=== PATIENT | female | born 1955 | race Caucasian/White ===

== ENCOUNTER 2016-10-06 08:54 | Emergency (ER) | payer MEDICARE, MEDICAID ==
[~2016-10-06 08:54] MED LIST: ACET65TA OR; ASPI81TA83 OR; CALCCHW12 OR; CIPR500T19 OR; COGE1INJ IJ; COGENTIN PO; CORE6.25 OR; COZA50TA18 OR; GLUC1000 OR; GLUC10TA3 OR; GLUC5TAB3 OR; LEVO112T OR; MAALSUS OR; METO10TA2 OR; NICO14DI3 TD; NORV5TAB OR; PERC5TAB8 OR; PRIL40CA OR; SIMV40TA2 OR; SLOWTAB OR; THIO5CAP OR; [UNRECOGNIZED DRUG - OTHER]; januvia
--- NOTE | 2016-10-06 10:24 | EDDOCDS ---
Physician Documentation [facility] Name: Irene Mckinley Age: 61 yrs Sex: Female : 1955 Arrival Date: 10/06/2016 Time: 08:54 Bed I3 / M3 Private MD: Disposition: 10/06/16 10:08 Discharged to Home/Self Care. Impression: Acute sinusitis, Nausea. - Condition is Stable. - Discharge Instructions: Nausea, Adult, Sinusitis, [id number]. - Prescriptions for Reglan 10 mg Oral Tablet - take 1 tablet by ORAL route every 6 hours take 30 minutes before meals and at bedtime; 20 tablet. Tylenol 325 mg Oral Tablet - take 2 tablets by ORAL route every 6 hours as needed; 30 tablet. Zithromax 500 mg Oral Tablet - take 2 tablet by ORAL route one time; 2 tablet. Claritin 10 mg Oral Tablet - take 1 tablet by ORAL route once daily As needed; 30 tablet. Mucinex 600 mg - take 1 tablet by ORAL route 2 times per day; 30 tablet. - Medication Reconciliation, Local Pharmacy Hours form. - Follow up: Livier Palma; When: 1 - 2 days; Reason: Recheck today's complaints, Continuance of care. Follow up: Emergency Department; Reason: Worsening of conditions. - Problem is new. - Symptoms are unchanged. Historical: - Allergies: PENICILLINS; Strawberries; - Home Meds: 1. aspirin 81 mg Oral tab 1 tab once daily 2. carvedilol 6.25 mg oral tab 1 tab 2 times per day 3. levothyroxine 50 mcg Oral tab 1 tab once daily 4. losartan 100 mg oral tab 1 tab once daily 5. mag64 1 tab three times a day 6. ventolin inhaler as needed 7. Vitamin D3 1,000 unit oral tab daily - PMHx: Bipolar disorder; COPD; Diabetes - IDDM: controlled; GERD; Hypertension; Hypothyroidism; - PSHx: Appendectomy; Tubal ligation; - Social history: Smoking status: Patient/guardian denies using No barriers to communication noted, The patient speaks fluent Turkmen. - Family history: Not pertinent. - : The pt / caregiver states he / she is not on anticoagulants. Home medication list is obtained from [employer] import data. - Exposure Risk Screening:: None identified. Vital Signs: 10/06 09:41 BP 129 / 74; Pulse 63; Resp 18; Temp 98.0; Pulse Ox 97% ; Weight 61.69 kg / 136 lbs; jlf Height 5 ft. 6 in. (167.64 cm); Pain 0/10; 09:41 Body Mass Index 21.95 (61.69 kg, 167.64 cm) [facility] Signatures: Alyssa Woods RN RN dls Xochilt Romero, SIXTOC PA-C ef1 MTDD
--- NOTE | 2016-10-06 10:24 | EDDOCDS ---
Nurse's Notes [facility] Name: Irene Mckinley Age: 61 yrs Sex: Female : 1955 Arrival Date: 10/06/2016 Time: 08:54 Bed I3 / M3 Private MD: Diagnosis: Acute sinusitis;Nausea Presentation: 10/06 09:51 Presenting complaint: Patient states: Pt presents with feeling tired and cold for the dls pas few days bones ache not sleeping face hurts thinks she has a cold. No acute neurological deficit is noted. Pre-hospital glucose is not applicable to this patient. Adult Sepsis Screening: The patient does not have new or worsening altered mentation. Patient's respiratory rate is less than 22. Systolic blood pressure is greater than 100. Patient has a qSOFA score of 0- Negative Sepsis Screen. Suicide/Homicide risk assessment- the patient denies having any suicidal and/or homicidal ideations and does not present with any other emotional, behavioral or mental health complaints. 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 Transition of care: patient was not received from another setting of care. 09:51 Acuity: VICTOR MANUEL Level 3 dls 09:51 Method Of Arrival: Walkin/Carried/Asstd dls Triage Assessment: 09:55 The onset of the patients symptoms was more than three hours ago. General: Appears dls uncomfortable, Behavior is flat. Pain: Pain currently is 3 out of 10 on a pain scale. HIV screening NA for this visit Offered previously. Neurological: No deficits noted. Historical: - Allergies: PENICILLINS; Strawberries; - Home Meds: 1. aspirin 81 mg Oral tab 1 tab once daily 2. carvedilol 6.25 mg oral tab 1 tab 2 times per day 3. levothyroxine 50 mcg Oral tab 1 tab once daily 4. losartan 100 mg oral tab 1 tab once daily 5. mag64 1 tab three times a day 6. ventolin inhaler as needed 7. Vitamin D3 1,000 unit oral tab daily - PMHx: Bipolar disorder; COPD; Diabetes - IDDM: controlled; GERD; Hypertension; Hypothyroidism; - PSHx: Appendectomy; Tubal ligation; - Social history: Smoking status: Patient/guardian denies using No barriers to communication noted, The patient speaks fluent Andorran. - Family history: Not pertinent. - : The pt / caregiver states he / she is not on anticoagulants. Home medication list is obtained from [employer] import data. - Exposure Risk Screening:: None identified. Screenin:20 Screening information is obtained from the patient. Primary language is Andorran. Fall dls risk: No risks identified. Assistance ADL's: requires no assistance with activities of daily living. Abuse/DV Screen: The patient / caregiver reports he/she is: not in a situation that causes fear, pain or injury. Nutritional screening: No deficits noted. Advance Directives: Currently, there is no health care proxy. There is no active DNR order. There is no living will. There is no Power of Garment Presser. Advance directive information has not previously been placed in an [facility] medical record. home support is adequate. Assessment: 10:19 General: Appears in no apparent distress, slender, Behavior is cooperative, flat. Pain: dls Pain currently is 3 out of 10 on a pain scale. Neurological: No deficits noted. 10:20 Awake, alert, oriented. Skin warm and dry. Moves all extremities. Bilateral breath dls sounds clear. Respirations unlabored. Abdomen soft, non-tender. No apparent distress. The patient / caregiver is instructed regarding the plan of care and ED course. Vital Signs: 09:41 BP 129 / 74; Pulse 63; Resp 18; Temp 98.0; Pulse Ox 97% ; Weight 61.69 kg; Height 5 ft. jlf 6 in. (167.64 cm); Pain 0/10; 09:41 Body Mass Index 21.95 (61.69 kg, 167.64 cm) jlf Vitals: 09:55 Glucose Measurement D-stick deferred by provider. dls ED Course: 08:55 Patient visited by Kristel Harris. jp5 08:55 Patient moved to Waiting jp5 09:13 Patient moved to Triage 2 kmg1 09:22 Patient moved to I3 / M3 dls 09:41 Patient visited by Roseline Malone PCA. jlf 09:53 Triage Initiated dls 09:54 Xochilt Romero PA-C is [facility]. ef1 09:54 Trinity Argueta MD is Attending Physician. ef1 09:56 Patient visited by Xochilt Romero PA-C. ef1 10:08 Livier Palma FNP is Referral Physician. ef1 10:20 Accompanied by Family Member, Patient has correct armband on for positive dls identification. Placed in gown. Bed in low position. Call light in reach. 10:22 No IV's were initiated during this patient's visit. No procedures done that require dls assistance. Order Results: There are currently no results for this order. Outcome: 10:08 Discharge ordered by Provider. ef1 10:20 The following High Risk Discharge criteria are identified: None. Discharged to home dls ambulatory. Condition: stable. Discharge instructions given to patient, Instructed on discharge instructions, follow up and referral plans. medication usage, Demonstrated understanding of instructions, medications, Pt was receptive of discharge instructions/ teaching. Prescriptions given X 4. No special radiology studies were completed. 10:22 Discharge Assessment: Patient awake, alert and oriented x 3. No cognitive and/or dls functional deficits noted. Patient verbalized understanding of disposition instructions. patient administered narcotics - no. The following High Risk Discharge criteria are identified: None. Discharged to home ambulatory, with significant other. Property :Personal belongings accompany Pt. 10:23 Patient left the ED. dls Signatures: Zoila Oconnor, RN RN km Alyssa Woods RN RN Xochilt Bullock, PA-C PA-C ef1 Roseline Malone, TEST DEVELOPER TEST DEVELOPER abelf Kristel Harris jp5 MTDLindsey
--- NOTE | 2016-10-08 11:24 | EDDOCDS ---
Physician Documentation [facility] Name: Irene Mckinley Age: 61 yrs Sex: Female : 1955 Arrival Date: 10/06/2016 Time: 08:54 Bed I3 / M3 Private MD: Disposition: 10/06/16 10:08 Discharged to Home/Self Care. Impression: Acute sinusitis, Nausea. - Condition is Stable. - Discharge Instructions: Nausea, Adult, Sinusitis, [id number]. - Prescriptions for Reglan 10 mg Oral Tablet - take 1 tablet by ORAL route every 6 hours take 30 minutes before meals and at bedtime; 20 tablet. Tylenol 325 mg Oral Tablet - take 2 tablets by ORAL route every 6 hours as needed; 30 tablet. Zithromax 500 mg Oral Tablet - take 2 tablet by ORAL route one time; 2 tablet. Claritin 10 mg Oral Tablet - take 1 tablet by ORAL route once daily As needed; 30 tablet. Mucinex 600 mg - take 1 tablet by ORAL route 2 times per day; 30 tablet. - Medication Reconciliation, Local Pharmacy Hours form. - Follow up: Livier Palma; When: 1 - 2 days; Reason: Recheck today's complaints, Continuance of care. Follow up: Emergency Department; Reason: Worsening of conditions. - Problem is new. - Symptoms are unchanged. Historical: - Allergies: PENICILLINS; Strawberries; - Home Meds: 1. aspirin 81 mg Oral tab 1 tab once daily 2. carvedilol 6.25 mg oral tab 1 tab 2 times per day 3. levothyroxine 50 mcg Oral tab 1 tab once daily 4. losartan 100 mg oral tab 1 tab once daily 5. mag64 1 tab three times a day 6. ventolin inhaler as needed 7. Vitamin D3 1,000 unit oral tab daily - PMHx: Bipolar disorder; COPD; Diabetes - IDDM: controlled; GERD; Hypertension; Hypothyroidism; - PSHx: Appendectomy; Tubal ligation; - Social history: Smoking status: Patient/guardian denies using No barriers to communication noted, The patient speaks fluent Sami. - Family history: Not pertinent. - : The pt / caregiver states he / she is not on anticoagulants. Home medication list is obtained from [employer] import data. - Exposure Risk Screening:: None identified. Vital Signs: 10/06 09:41 BP 129 / 74; Pulse 63; Resp 18; Temp 98.0; Pulse Ox 97% ; Weight 61.69 kg / 136 lbs; jlf Height 5 ft. 6 in. (167.64 cm); Pain 0/10; 09:41 Body Mass Index 21.95 (61.69 kg, 167.64 cm) jlf MDM: 10:38 Financial registration complete. mm15 10:38 [facility] Payment Agreement was scanned into [employer] and attached to record. mm15 20:15 T-Sheet-- Draft Copy was scanned into [employer] and attached to record. klr Signatures: Alyssa Woods RN RN dls Xochilt Romero PA-C PA-C ef1 Carline George mm15 Remedios Velez klr The chart was reviewed and I authenticate all verbal orders and agree with the evaluation and treatment provided.Attachments: 10:38 [facility] Payment Agreement mm15 20:15 T-Sheet-- Draft Copy klr Chart Complete MTDD
--- NOTE | 2016-10-08 11:24 | EDDOCDS ---
Nurse's Notes [facility] Name: Irene Mckinley Age: 61 yrs Sex: Female : 1955 Arrival Date: 10/06/2016 Time: 08:54 Bed I3 / M3 Private MD: Diagnosis: Acute sinusitis;Nausea Presentation: 10/06 09:51 Presenting complaint: Patient states: Pt presents with feeling tired and cold for the dls pas few days bones ache not sleeping face hurts thinks she has a cold. No acute neurological deficit is noted. Pre-hospital glucose is not applicable to this patient. Adult Sepsis Screening: The patient does not have new or worsening altered mentation. Patient's respiratory rate is less than 22. Systolic blood pressure is greater than 100. Patient has a qSOFA score of 0- Negative Sepsis Screen. Suicide/Homicide risk assessment- the patient denies having any suicidal and/or homicidal ideations and does not present with any other emotional, behavioral or mental health complaints. 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 Transition of care: patient was not received from another setting of care. 09:51 Acuity: VICTOR MANUEL Level 3 dls 09:51 Method Of Arrival: Walkin/Carried/Asstd dls Triage Assessment: 09:55 The onset of the patients symptoms was more than three hours ago. General: Appears dls uncomfortable, Behavior is flat. Pain: Pain currently is 3 out of 10 on a pain scale. HIV screening NA for this visit Offered previously. Neurological: No deficits noted. Historical: - Allergies: PENICILLINS; Strawberries; - Home Meds: 1. aspirin 81 mg Oral tab 1 tab once daily 2. carvedilol 6.25 mg oral tab 1 tab 2 times per day 3. levothyroxine 50 mcg Oral tab 1 tab once daily 4. losartan 100 mg oral tab 1 tab once daily 5. mag64 1 tab three times a day 6. ventolin inhaler as needed 7. Vitamin D3 1,000 unit oral tab daily - PMHx: Bipolar disorder; COPD; Diabetes - IDDM: controlled; GERD; Hypertension; Hypothyroidism; - PSHx: Appendectomy; Tubal ligation; - Social history: Smoking status: Patient/guardian denies using No barriers to communication noted, The patient speaks fluent Moroccan. - Family history: Not pertinent. - : The pt / caregiver states he / she is not on anticoagulants. Home medication list is obtained from [employer] import data. - Exposure Risk Screening:: None identified. Screenin:20 Screening information is obtained from the patient. Primary language is Moroccan. Fall dls risk: No risks identified. Assistance ADL's: requires no assistance with activities of daily living. Abuse/DV Screen: The patient / caregiver reports he/she is: not in a situation that causes fear, pain or injury. Nutritional screening: No deficits noted. Advance Directives: Currently, there is no health care proxy. There is no active DNR order. There is no living will. There is no Power of Requirements Analyst. Advance directive information has not previously been placed in an [facility] medical record. home support is adequate. Assessment: 10:19 General: Appears in no apparent distress, slender, Behavior is cooperative, flat. Pain: dls Pain currently is 3 out of 10 on a pain scale. Neurological: No deficits noted. 10:20 Awake, alert, oriented. Skin warm and dry. Moves all extremities. Bilateral breath dls sounds clear. Respirations unlabored. Abdomen soft, non-tender. No apparent distress. The patient / caregiver is instructed regarding the plan of care and ED course. Vital Signs: 09:41 BP 129 / 74; Pulse 63; Resp 18; Temp 98.0; Pulse Ox 97% ; Weight 61.69 kg; Height 5 ft. jlf 6 in. (167.64 cm); Pain 0/10; 09:41 Body Mass Index 21.95 (61.69 kg, 167.64 cm) jlf Vitals: 09:55 Glucose Measurement D-stick deferred by provider. dls ED Course: 08:55 Patient visited by Kristel Harris. jp5 08:55 Patient moved to Waiting jp5 09:13 Patient moved to Triage 2 kmg1 09:22 Patient moved to I3 / M3 dls 09:41 Patient visited by Roseline Malone PCA. jlf 09:53 Triage Initiated dls 09:54 [facility] ef1 09:54 Trinity Argueta MD is Attending Physician. ef1 09:56 Patient visited by Xochilt Romero PA-C. ef1 10:08 Livier Palma FNP is Referral Physician. ef1 10:20 Accompanied by Family Member, Patient has correct armband on for positive dls identification. Placed in gown. Bed in low position. Call light in reach. 10:22 No IV's were initiated during this patient's visit. No procedures done that require dls assistance. 10:38 [facility] Payment Agreement was scanned into [employer] and attached to record. mm15 20:15 T-Sheet-- Draft Copy was scanned into [employer] and attached to record. klr Order Results: There are currently no results for this order. Outcome: 10:08 Discharge ordered by Provider. ef1 10:20 The following High Risk Discharge criteria are identified: None. Discharged to home dls ambulatory. Condition: stable. Discharge instructions given to patient, Instructed on discharge instructions, follow up and referral plans. medication usage, Demonstrated understanding of instructions, medications, Pt was receptive of discharge instructions/ teaching. Prescriptions given X 4. No special radiology studies were completed. 10:22 Discharge Assessment: Patient awake, alert and oriented x 3. No cognitive and/or dls functional deficits noted. Patient verbalized understanding of disposition instructions. patient administered narcotics - no. The following High Risk Discharge criteria are identified: None. Discharged to home ambulatory, with significant other. Property :Personal belongings accompany Pt. 10:23 Patient left the ED. dls Signatures: Zoila Oconnor, RN RN km Alyssa Woods RN RN dls Xochilt Romero PA-C PA-C ef1 Carline George mm15 Roseline Malone, [employer] TESTING AND REPAIR TECHNICIAN Kristel Mendoza jp5 Remedios Velez Chart Complete MTDD
--- NOTE | 2016-10-08 11:24 | EDDOCDS ---
Physician Documentation [facility] Name: Irene Mckinley Age: 61 yrs Sex: Female : 1955 Arrival Date: 10/06/2016 Time: 08:54 Bed I3 / M3 Private MD: Disposition: 10/06/16 10:08 Discharged to Home/Self Care. Impression: Acute sinusitis, Nausea. - Condition is Stable. - Discharge Instructions: Nausea, Adult, Sinusitis, [id number]. - Prescriptions for Reglan 10 mg Oral Tablet - take 1 tablet by ORAL route every 6 hours take 30 minutes before meals and at bedtime; 20 tablet. Tylenol 325 mg Oral Tablet - take 2 tablets by ORAL route every 6 hours as needed; 30 tablet. Zithromax 500 mg Oral Tablet - take 2 tablet by ORAL route one time; 2 tablet. Claritin 10 mg Oral Tablet - take 1 tablet by ORAL route once daily As needed; 30 tablet. Mucinex 600 mg - take 1 tablet by ORAL route 2 times per day; 30 tablet. - Medication Reconciliation, Local Pharmacy Hours form. - Follow up: Livier Palma; When: 1 - 2 days; Reason: Recheck today's complaints, Continuance of care. Follow up: Emergency Department; Reason: Worsening of conditions. - Problem is new. - Symptoms are unchanged. Historical: - Allergies: PENICILLINS; Strawberries; - Home Meds: 1. aspirin 81 mg Oral tab 1 tab once daily 2. carvedilol 6.25 mg oral tab 1 tab 2 times per day 3. levothyroxine 50 mcg Oral tab 1 tab once daily 4. losartan 100 mg oral tab 1 tab once daily 5. mag64 1 tab three times a day 6. ventolin inhaler as needed 7. Vitamin D3 1,000 unit oral tab daily - PMHx: Bipolar disorder; COPD; Diabetes - IDDM: controlled; GERD; Hypertension; Hypothyroidism; - PSHx: Appendectomy; Tubal ligation; - Social history: Smoking status: Patient/guardian denies using No barriers to communication noted, The patient speaks fluent Frisian. - Family history: Not pertinent. - : The pt / caregiver states he / she is not on anticoagulants. Home medication list is obtained from [employer] import data. - Exposure Risk Screening:: None identified. Vital Signs: 10/06 09:41 BP 129 / 74; Pulse 63; Resp 18; Temp 98.0; Pulse Ox 97% ; Weight 61.69 kg / 136 lbs; jlf Height 5 ft. 6 in. (167.64 cm); Pain 0/10; 09:41 Body Mass Index 21.95 (61.69 kg, 167.64 cm) jlf MDM: 10:38 Financial registration complete. mm15 10:38 [facility] Payment Agreement was scanned into [employer] and attached to record. mm15 20:15 T-Sheet-- Draft Copy was scanned into [employer] and attached to record. klr Signatures: Alyssa Woods RN RN dls Xochilt Romero PA-C PA-C ef1 Carline George mm15 Remedios Velez klr The chart was reviewed and I authenticate all verbal orders and agree with the evaluation and treatment provided.Attachments: 10:38 [facility] Payment Agreement mm15 20:15 T-Sheet-- Draft Copy klr Chart Complete MTDD
== END 2016-10-06 10:23 | disposition home or self-care (01) ==
LOC: M ED 08:54
DX: J01.90 Acute sinusitis, unspecified (principal); R11.0 Nausea; I10 Essential (primary) hypertension; E11.9 Type 2 diabetes mellitus without complications; J44.9 Chronic obstructive pulmonary disease, unspecified; E03.9 Hypothyroidism, unspecified; F31.9 Bipolar disorder, unspecified; K21.9 Gastro-esophageal reflux disease without esophagitis; Z79.899 Other long term (current) drug therapy; Z79.82 Long term (current) use of aspirin; Z88.0 Allergy status to penicillin; Z91.018 Allergy to other foods

== ENCOUNTER → 2016-10-31 | Outpatient (REF) | payer MEDICARE, MEDICAID ==
[2016-10-31 11:56] LABS: MEAN CORPUSCULAR HEMOGLOBIN 30.3 pg (27.0-33.0); MEAN CORPUSCULAR HGB CONC 33.9 g/dl (32.0-36.5); MEAN CORPUSCULAR VOLUME 89.5 fl (80.0-96.0); RED CELL DISTRIBUTION WIDTH 13.5 % (11.5-14.5); WHITE BLOOD COUNT 4.8 K/mm3 (4.0-10.0)
[2016-10-31 12:46] LABS: ALBUMIN 3.9 GM/DL (3.2-5.2); ALBUMIN/GLOBULIN RATIO 1.44 (1.00-1.93); ALKALINE PHOSPHATASE 87 U/L (45-117); ALT/SGPT 21 U/L (12-78); ANION GAP 10 MEQ/L (8-16); AST/SGOT 23 U/L (15-37); BILIRUBIN,TOTAL 1.4 MG/DL (0.2-1.0); BLOOD UREA NITROGEN 12 MG/DL (7-18); CALCIUM LEVEL 9.2 MG/DL (8.8-10.2); CARBON DIOXIDE LEVEL 30 MEQ/L (21-32); CHLORIDE LEVEL 93 MEQ/L (98-107); CHOLESTEROL LEVEL 182 MG/DL (<200); CREATININE FOR GFR 0.64 MG/DL (0.55-1.02); GLOMERULAR FILTRATION RATE > 60.0 (>45); GLUCOSE, FASTING 92 MG/DL (80-110); MAGNESIUM LEVEL 2.1 MG/DL (1.8-2.4); POTASSIUM SERUM 4.3 MEQ/L (3.5-5.1); SODIUM LEVEL 133 MEQ/L (136-145); TOTAL PROTEIN 6.6 GM/DL (6.4-8.2); TRIGLYCERIDES LEVEL 52 MG/DL (<150)
== END ==
LOC: M SFHCPLAZ 11:30
PROVIDERS: ATTEND Nurse Practitioner Family
DX: R79.89 Other specified abnormal findings of blood chemistry (principal); E03.9 Hypothyroidism, unspecified; R53.83 Other fatigue; E11.9 Type 2 diabetes mellitus without complications; R35.0 Frequency of micturition; E83.40 Disorders of magnesium metabolism, unspecified; E78.2 Mixed hyperlipidemia; E55.9 Vitamin D deficiency, unspecified

== ENCOUNTER → 2016-11-12 | Outpatient (CLI) | payer MEDICARE ==
[~2016-11-12] MED LIST changes: +ISOVUE-370 76% 100ML VIAL (Q9967) As Ordered ONE
--- NOTE | 2016-11-12 13:35 | REP ---
CT abdomen and pelvis without and with IV contrast: With oral contrast. Left adrenal adenoma. 6-month followup study. Comparison exam June 05, 2016. Also reviewed are prior studies from March 06, 2014 and January 06, 2012. CT contrast dose: 100 ml of Isovue [address] findings: Alternative Financing Specialist images are noncontributory. Axial CT images at the lung bases show no evidence of pleural effusion or infiltrate. Today's study again demonstrates a somewhat nodular and elongate enlargement of the left adrenal gland. This is felt to be essentially unchanged from the December 27, 2011 prior study. There are low Hounsfield unit density within this lesion, mean Hounsfield unit number today is -9.69 HU. The lesion measures very slightly larger than it did in 2012, 1.6 x 1.5 cm in transverse dimensions. Coronal and sagittal multiplanar reformation images demonstrate that the enlarged adrenal is somewhat elongate 4- 1/2 cm in length but this is not felt to be changed. No right adrenal lesion is seen. The liver and spleen are homogeneous on pre- and postcontrast images. There is a small peripheral cyst in the upper pole of each kidney. There are several smaller cysts in the lower pole of each kidney. The abdominal aorta is tortuous but not aneurysmal. Small and large intestinal bowel loops remain unremarkable. No pancreatic lesion is observed. A vaginal pessary is noted in place in the pelvis. There is left colonic diverticulosis. Impression: 1. Stable benign left adrenal adenoma as described above. 2. Left colonic diverticulosis. No acute abnormality. Signed by Manny Burk MD 11/12/2016 03:21 P
== END ==
LOC: M RAD 11:07
PROVIDERS: ATTEND Nurse Practitioner Family
DX: D35.02 Benign neoplasm of left adrenal gland (principal)
CPT/HCPCS: 74178; Q9967

== ENCOUNTER → 2016-11-28 | Outpatient (CLI) | payer MEDICARE ==
[~2016-11-28] MED LIST changes: -ISOVUE-370 76% 100ML VIAL (Q9967) As Ordered ONE
--- NOTE | 2016-11-28 16:48 | REP ---
Clinical: Lung screening. History smoking. Technique: Axial noncontrast low-dose imaging from the thoracic inlet to the upper abdomen using lung screening technique. Comparison: Chest CT dated 11/22/2011. Findings: The bilateral lung koch are well-aerated and clear. No acute pulmonary parenchymal consolidation, nodule or mass lesion appreciated. Tracheobronchial tree is patent. No pleural effusion or pneumothorax. Mediastinum is grossly unremarkable although atherosclerotic changes to the coronary arteries is noted. Impression: Lung-RADS category I. Normal examination. No nodule. Signed by Liam Duran MD 11/28/2016 04:38 P
== END ==
LOC: M RAD 14:59
PROVIDERS: ATTEND Nurse Practitioner Family
DX: F17.210 Nicotine dependence, cigarettes, uncomplicated (principal)

== ENCOUNTER → 2017-01-07 | Day surgery (SDC) | payer MEDICARE ==
[~2017-01-07] VITALS: Ht 165.1 cm; Wt 60.8 kg
[~2017-01-07] MED LIST changes: +ACETAMINOPHEN 325 MG TAB PO PRN; +ALBU17IN INH; +ALBU83IN INH; +ANUS2.5C2 PR; +ASEN5TA SL; +ASPI1TAB PO; +AcetaZOLAMIDE 500 MG ER CAP PO ONE; +BSS with VANC/TOB/EPI for EYE CASES IR ONE; +CALC600T57 PO; +CARV6.25 PO; +CLAR10CA3 PO; +CYCLOPENTOLATE 2% OPHTH SOLN OD ONE; +D5W/0.2% SODIUM CHLORIDE 250 ML IV ONE; +DOXY-278 PO; +DOXY100C37 PO; +FLON1SPR; +HEALON DUET (HEALON 10MG/ML 0.55ML & HEALON ENDOCOAT 30MG/ML 0.85ML) As Ordered ONE; +IPRA2IN INH; +KETOROLAC 0.5% OPHTH SOLN OD ONE; +LEVO50TA45 PO; +LIDOCAINE 1% SDV 5 ML VIAL As Ordered ONE; +LIDOCAINE 4% INJ 5 ML AMP OU ONE; +LOSA100T36 PO; +MAGN64TASA PO; +MIDAZOLAM INJ 2 MG/2 ML VIAL (J2250) As Ordered ONE; +MIRA3350 PO; +MOXIFLOXACIN IN BSS 0.25MG/0.25ML INTRACAMERAL INJ (OR EYE ONLY)(J2280) As Ordered ONE; +MUCI600T34 PO; +OFLOXACIN 0.3 % (OCUFLOX) OPTH SOL 5ML OD ONE; +OMEP20CA3 PO; +PHENYLEPHRINE 2.5% OPHTH SOL 2ML OD ONE; +POVIDONE-IODINE 5% OPHTH PREP SOL 30ML As Ordered ONE; +PROPARACAINE 0.5% OPHTH SOL 15ML OD PRN; +RANI1TAB6 PO; +TRIAMCINOLONE PRES FR 40 MG/ML 1ML(TRIESENCE)(OR EYE ONLY)(J3300 PER 1MG) As Ordered ONE; +TRIMETHOBENZAMIDE 300 MG CAP PO PRN; +TROPICAMIDE 1% OPHTH SOLN 2 ML OD ONE; +VITA100037 PO; +XOPEAER INH; +fentaNYL 100 MCG/2 ML INJECTION (J3010) As Ordered ONE
[2017-01-07 09:20] VITALS: BP 127/77
== END | disposition home or self-care (01) ==
LOC: M SDC 07:13
PROVIDERS: ATTEND Ophthalmology
DX: H26.9 Unspecified cataract (principal); I10 Essential (primary) hypertension; I50.9 Heart failure, unspecified; E03.9 Hypothyroidism, unspecified; E78.00 Pure hypercholesterolemia, unspecified; E11.9 Type 2 diabetes mellitus without complications; K21.9 Gastro-esophageal reflux disease without esophagitis; M54.9 Dorsalgia, unspecified; F31.9 Bipolar disorder, unspecified; R06.02 Shortness of breath; R32 Unspecified urinary incontinence; Z88.0 Allergy status to penicillin; Z91.018 Allergy to other foods; Z78.0 Asymptomatic menopausal state; Z98.51 Tubal ligation status; Z72.0 Tobacco use; Z79.899 Other long term (current) drug therapy; Z79.82 Long term (current) use of aspirin
CPT/HCPCS: 66984; J2250; J2280; J3010; J3300; V2632

== ENCOUNTER 2017-01-12 06:14 | Emergency (ER) | payer MEDICARE, MEDICAID ==
[~2017-01-12] VITALS: Ht 152.4 cm; Wt 58.1 kg
[~2017-01-12 06:14] MED LIST changes: -ACETAMINOPHEN 325 MG TAB PO PRN; -AcetaZOLAMIDE 500 MG ER CAP PO ONE; -BSS with VANC/TOB/EPI for EYE CASES IR ONE; -CYCLOPENTOLATE 2% OPHTH SOLN OD ONE; -D5W/0.2% SODIUM CHLORIDE 250 ML IV ONE; -DOXY-278 PO; -DOXY100C37 PO; -HEALON DUET (HEALON 10MG/ML 0.55ML & HEALON ENDOCOAT 30MG/ML 0.85ML) As Ordered ONE; -KETOROLAC 0.5% OPHTH SOLN OD ONE; -LIDOCAINE 1% SDV 5 ML VIAL As Ordered ONE; -LIDOCAINE 4% INJ 5 ML AMP OU ONE; -MIDAZOLAM INJ 2 MG/2 ML VIAL (J2250) As Ordered ONE; -MOXIFLOXACIN IN BSS 0.25MG/0.25ML INTRACAMERAL INJ (OR EYE ONLY)(J2280) As Ordered ONE; -MUCI600T34 PO; -OFLOXACIN 0.3 % (OCUFLOX) OPTH SOL 5ML OD ONE; -PHENYLEPHRINE 2.5% OPHTH SOL 2ML OD ONE; -POVIDONE-IODINE 5% OPHTH PREP SOL 30ML As Ordered ONE; -PROPARACAINE 0.5% OPHTH SOL 15ML OD PRN; -TRIAMCINOLONE PRES FR 40 MG/ML 1ML(TRIESENCE)(OR EYE ONLY)(J3300 PER 1MG) As Ordered ONE; -TRIMETHOBENZAMIDE 300 MG CAP PO PRN; -TROPICAMIDE 1% OPHTH SOLN 2 ML OD ONE; -XOPEAER INH; -fentaNYL 100 MCG/2 ML INJECTION (J3010) As Ordered ONE
[2017-01-12] MEDS ORDERED: predniSONE 20 MG TAB As Ordered ONE (07:25)
[2017-01-12] MEDS ORDERED: predniSONE 20 MG TAB PO ONE ×2 (07:30→07:45)
[2017-01-12] MEDS ORDERED: predniSONE 50 MG TAB PO ONE (07:30)
[2017-01-12] MEDS ORDERED: IPRATROPIUM 0.5MG/ALBUTEROL 2.5MG INH SOL UD 3ML (DUONEB)(J7620) NEB ONE (07:30)
[2017-01-12 08:29] VITALS: BP 140/82
[2017-01-12] MEDS ORDERED: DOXY-278 PO (08:31)
[2017-01-12] MEDS ORDERED: MUCI600T34 PO (08:32)
[2017-01-12] MEDS ORDERED: DOXY100C37 PO (08:32)
[2017-01-12] MEDS ORDERED: XOPEAER INH (08:32)
[2017-01-12] MEDS ORDERED: DOXYCYCLINE HYCLATE 100 MG TAB PO ONE (08:45)
--- NOTE | 2017-01-12 10:12 | REP ---
CHEST, TWO VIEWS: HISTORY: Cough. COMPARISON: 09/04/2016 FINDINGS: The superior mediastinal structures are midline. The cardiac silhouette is unremarkable in size, shape and position. The diaphragmatic surfaces of the lungs are regular and the costophrenic angles are clear. The pulmonary koch are clear. The imaged osseous structures are intact. IMPRESSION: There is no acute cardiopulmonary disease. Signed by Barry Ferguson DO 01/12/2017 10:24 A
== END 2017-01-12 08:51 | disposition home or self-care (01) ==
LOC: M ED 07:20
DX: J01.90 Acute sinusitis, unspecified (principal); J20.9 Acute bronchitis, unspecified; I10 Essential (primary) hypertension; E11.9 Type 2 diabetes mellitus without complications; J45.909 Unspecified asthma, uncomplicated; E78.00 Pure hypercholesterolemia, unspecified; E03.9 Hypothyroidism, unspecified; F41.9 Anxiety disorder, unspecified; F33.9 Major depressive disorder, recurrent, unspecified; Z79.899 Other long term (current) drug therapy; Z79.82 Long term (current) use of aspirin; Z88.0 Allergy status to penicillin; Z91.018 Allergy to other foods

== ENCOUNTER → 2017-01-24 | Outpatient (CLI) | payer MEDICARE ==
[~2017-01-24] MED LIST changes: +DOXY-278 PO; +DOXY100C37 PO; +MUCI600T34 PO; +XOPEAER INH
--- NOTE | 2017-01-24 13:56 | REP ---
Transvaginal pelvic sonography: History: Postmenopausal bleeding. Findings: Transabdominal and transvaginal scanning demonstrate retroverted retroflexed uterus with dimensions of 5.4 x 2.4 x 3.3 cm. Endometrial echo is 0.2 cm thick. Visualized bladder kaplan are smooth. No free fluid is seen. Normal ovaries are seen. Right ovary dimensions are 1.8 x 0.8 x 1.0 cm. Left ovary measures 2.0 x 1.1 x 1.6 cm. There is a 1 cm simple cyst visible in the left ovary on transvaginal scanning. Impression: No significant abnormality. Retroverted uterus.
== END ==
LOC: M WHC 11:30
PROVIDERS: ATTEND Nurse Practitioner Family
DX: R10.2 Pelvic and perineal pain (principal); N95.0 Postmenopausal bleeding

== ENCOUNTER → 2017-01-30 | Outpatient (REF) | payer MEDICARE, MEDICAID ==
[2017-01-30 13:53] LABS: EOS % 0.8 % (0.0-3.0); LARGE UNSTAINED CELL # 0.1 K/mm3 (0.0-0.4); LARGE UNSTAINED CELL % 1.8 % (0.0-4.0); LYMPH # 1.3 K/mm3 (1.5-4.5); MEAN CORPUSCULAR HGB CONC 34.6 g/dl (32.0-36.5); MEAN CORPUSCULAR VOLUME 92.4 fl (80.0-96.0); MONO # 0.4 K/mm3 (0.0-0.8); MONO % 7.1 % (0.0-5.0); NEUTROPHILS # 3.4 K/mm3 (1.8-7.7); NEUTROPHILS % 65.2 % (36.0-66.0); PLATELET COUNT, AUTOMATED 217 k/mm3 (150-450); RED CELL DISTRIBUTION WIDTH 12.9 % (11.5-14.5); WHITE BLOOD COUNT 5.2 K/mm3 (4.0-10.0)
[2017-01-30 14:30] LABS: ALBUMIN 3.5 GM/DL (3.2-5.2); ALBUMIN/GLOBULIN RATIO 1.25 (1.00-1.93); ALKALINE PHOSPHATASE 77 U/L (45-117); ALT/SGPT 25 U/L (12-78); ANION GAP 7 MEQ/L (8-16); AST/SGOT 16 U/L (15-37); BLOOD UREA NITROGEN 14 MG/DL (7-18); CALCIUM LEVEL 8.7 MG/DL (8.8-10.2); CARBON DIOXIDE LEVEL 31 MEQ/L (21-32); CHLORIDE LEVEL 92 MEQ/L (98-107); CREATININE FOR GFR 0.63 MG/DL (0.55-1.02); GLOMERULAR FILTRATION RATE > 60.0 (>45); GLUCOSE, FASTING 74 MG/DL (80-110); POTASSIUM SERUM 4.9 MEQ/L (3.5-5.1); SODIUM LEVEL 130 MEQ/L (136-145); TOTAL PROTEIN 6.3 GM/DL (6.4-8.2)
== END ==
LOC: M SFHCPLAZ 11:03
PROVIDERS: ATTEND Nurse Practitioner Family
DX: R53.83 Other fatigue (principal); I10 Essential (primary) hypertension; E03.9 Hypothyroidism, unspecified; E11.9 Type 2 diabetes mellitus without complications; E55.9 Vitamin D deficiency, unspecified
CPT/HCPCS: 36415; 80053; 82306; 83036; 84439; 84443; 85025; G0463

== ENCOUNTER → 2017-02-14 | Outpatient (CLI) | payer MEDICARE ==
--- NOTE | 2017-02-14 12:41 | REPMRS ---
Patient History The patient states she had a clinical breast exam in 02/2017. Patient is postmenopausal. No known family history of cancer. Taking estrogen for 1 year. Digital Woman Screen Mammo: February 14, 2017 - Exam #: [id number] Bilateral CC and MLO view(s) were taken. Technologist: Maria Eugenia Salazar, Technologist Prior study comparison: January 26, 2016, digital woman screen mammo performed at [facility] to [facility]. December 08, 2014, digital woman screen mammo performed at [facility] to [facility]. July 07, 2014, echography breast uni/demi performed at [facility] to [facility]. FINDINGS: There are scattered fibroglandular densities. There has been no change in the appearance of the mammogram from the prior studies. There is a mild amount of scattered fibroglandular density which is fairly symmetric. There is no interval development of dominant mass, architectural distortion, or clustered microcalcification suggestive of malignancy. ASSESSMENT: BI-RADS/ACR category 1 mammogram. Negative. Recommendation Routine screening mammogram in 1 year (for women over age 40). This mammogram was interpreted with the aid of an FDA-approved computer-aided dectection system. Electronically Signed By: Bahman Burk MD 02/14/17 0736
== END ==
LOC: M WHC 10:44
PROVIDERS: ATTEND Nurse Practitioner Family
DX: Z12.31 Encounter for screening mammogram for malignant neoplasm of breast (principal); Z78.0 Asymptomatic menopausal state

== ENCOUNTER → 2017-02-14 | Outpatient (REF) | payer MEDICARE, MEDICAID ==
[~2017-02-14] MED LIST changes: +BIAX500T13 PO; +CLAR5TAB7 PO; +LEVAINH INH; -MUCI600T34 PO; +MUCI600T37 PO; +RANI15TA PO; +REGL10TA6 PO; +ULTR50TA8 PO; -VITA100037 PO; +VITA100067 PO; -XOPEAER INH
== END ==
LOC: M SFHCWAGY 11:18
PROVIDERS: ATTEND Nurse Practitioner Family
DX: Z12.4 Encounter for screening for malignant neoplasm of cervix (principal); R87.622 Low grade squamous intraepithelial lesion on cytologic smear of vagina (LGSIL)
CPT/HCPCS: 82270; 87624; G0123; G0202; G0463

== ENCOUNTER 2017-03-26 10:35 | Emergency (ER) | payer MEDICARE, MEDICAID ==
[~2017-03-26] VITALS: Ht 157.5 cm; Wt 72.5 kg
[~2017-03-26 10:35] MED LIST changes: -BIAX500T13 PO; -CLAR5TAB7 PO; -RANI15TA PO; -REGL10TA6 PO; -ULTR50TA8 PO
--- NOTE | 2017-03-26 11:54 | REP ---
LEFT RIB SERIES: Five views including PA chest. HISTORY: Trauma to the lower anterior ribs. Comparison study January 12, 2017. FINDINGS: PA chest x-ray is unremarkable. There is no evidence of pneumothorax or hydrothorax. Mediastinum is not traumatically widened. The aorta is slightly tortuous. Pleural angles are sharp. No infiltrate is seen. There is a calcified axillary lymph node on the right again noted. Multiple views of the left rib cage show no evidence of rib fracture or incidental bony destructive lesion. IMPRESSION: No active disease. Signed by Manny Burk MD 03/26/2017 02:28 P
[2017-03-26] MEDS ORDERED: ULTR50TA8 PO (12:31)
[2017-03-26 12:37] VITALS: BP 152/78
[2017-06-09] MEDS ORDERED: RANI15TA PO (14:32)
== END 2017-03-26 12:41 | disposition home or self-care (01) ==
LOC: M ED 10:35
DX: S20.212A Contusion of left front wall of thorax, initial encounter (principal); W18.2XXA Fall in (into) shower or empty bathtub, initial encounter; Y92.012 Bathroom of single-family (private) house as the place of occurrence of the external cause; Y93.89 Activity, other specified; Y99.8 Other external cause status; Z79.899 Other long term (current) drug therapy; Z79.82 Long term (current) use of aspirin; Z79.51 Long term (current) use of inhaled steroids; Z88.0 Allergy status to penicillin; Z91.018 Allergy to other foods; Z87.891 Personal history of nicotine dependence

== ENCOUNTER → 2017-04-28 | Outpatient (REF) | payer MEDICARE, MEDICAID, OTHER ==
[~2017-04-28] MED LIST changes: +BIAX500T13 PO; +CLAR5TAB7 PO; +RANI15TA PO; +REGL10TA6 PO; +ULTR50TA8 PO
== END ==
LOC: M LAB REF 15:20
PROVIDERS: ATTEND Nurse Practitioner Family
DX: N89.8 Other specified noninflammatory disorders of vagina (principal)
CPT/HCPCS: 87070; G0463

== ENCOUNTER 2017-05-11 14:09 | Emergency (ER) | payer MEDICARE, MEDICAID ==
[~2017-05-11] VITALS: Ht 160 cm; Wt 62.7 kg
[~2017-05-11 14:09] MED LIST changes: -BIAX500T13 PO; -CLAR5TAB7 PO; -RANI15TA PO; -REGL10TA6 PO
[2017-05-11 14:18] VITALS: BP_DIAS 90
[2017-05-11] MEDS ORDERED: diphenhydrAMINE INJ 50MG/ML VIAL (J1200) IV STA (14:58)
[2017-05-11] MEDS ORDERED: NS 1,000 ML IV ONE (15:00)
[2017-05-11 15:18] LABS: BASO # 0.1 K/mm3 (0.0-0.2); EOS # 0.3 K/mm3 (0.0-0.50); EOS % 3.5 % (0.0-3.0); LARGE UNSTAINED CELL # 0.2 K/mm3 (0.0-0.4); LARGE UNSTAINED CELL % 1.8 % (0.0-4.0); LYMPH # 1.8 K/mm3 (1.5-4.5); MEAN CORPUSCULAR HEMOGLOBIN 31.2 pg (27.0-33.0); MEAN CORPUSCULAR HGB CONC 33.8 g/dl (32.0-36.5); MEAN CORPUSCULAR VOLUME 92.1 fl (80.0-96.0); MONO # 0.5 K/mm3 (0.0-0.8); NEUTROPHILS # 5.4 K/mm3 (1.8-7.7); NEUTROPHILS % 67.6 % (36.0-66.0); PLATELET COUNT, AUTOMATED 232 k/mm3 (150-450); RED CELL DISTRIBUTION WIDTH 12.9 % (11.5-14.5)
[2017-05-11] MEDS ORDERED: METOCLOPRAMIDE INJ 10MG/2ML VIAL (J2765) IV ONE (15:30)
[2017-05-11 15:36] LABS: ANION GAP 4 MEQ/L (8-16); BLOOD UREA NITROGEN 22 MG/DL (7-18); CALCIUM LEVEL 9.5 MG/DL (8.8-10.2); CARBON DIOXIDE LEVEL 34 MEQ/L (21-32); CHLORIDE LEVEL 98 MEQ/L (98-107); CREATININE FOR GFR 0.84 MG/DL (0.55-1.02); GLOMERULAR FILTRATION RATE > 60.0 (>45); GLUCOSE, FASTING 126 MG/DL (80-110); POTASSIUM SERUM 4.8 MEQ/L (3.5-5.1); SODIUM LEVEL 136 MEQ/L (136-145)
--- NOTE | 2017-05-11 15:54 | REP ---
Clinical: Altered mental status. Comparison: 08/09/2011 Findings: The ventricles, sulci, and cisterns are normal in position and appearance. Souza-white differentiation is maintained. No acute intracranial hemorrhage, mass/mass effect, pathology or trauma/injury. No evidence for acute infarction. No extra-axial fluid collection. Calvarium is intact. Paranasal sinuses and mastoid air cells are clear. Impression: Normal noncontrast head CT. No evidence for acute intracranial pathology or trauma/injury. Signed by Liam Duran MD 05/11/2017 03:46 P
[2017-05-11] MEDS ORDERED: REGL10TA6 PO (16:02)
[2017-05-11 16:18] VITALS: BP_SYST 86
[2017-06-09] MEDS ORDERED: RANI15TA PO (14:32)
== END 2017-05-11 16:20 | disposition home or self-care (01) ==
LOC: M ED 14:09
DX: R51 Headache (principal); Z87.891 Personal history of nicotine dependence
CPT/HCPCS: 36415; 70450; 80048; 85025; 94760; 96361; 96374; 96375; 99284; J1200; J2765

== ENCOUNTER 2017-05-20 17:31 | Emergency (ER) | payer MEDICARE, MEDICAID ==
[~2017-05-20] VITALS: Ht 165.1 cm; Wt 67.3 kg
[~2017-05-20 17:31] MED LIST changes: +REGL10TA6 PO
[2017-05-20 17:32] VITALS: BP 172/86
[2017-05-20] MEDS ORDERED: PSEUDOEPHEDRINE 30 MG TAB PO ONE (20:15)
[2017-05-20] MEDS ORDERED: ERYTHROMYCIN 250 MG TABLET PO ONE (20:15)
[2017-05-20] MEDS ORDERED: BIAX500T13 PO (20:25)
[2017-05-20] MEDS ORDERED: CLAR5TAB7 PO (20:25)
[2017-06-09] MEDS ORDERED: RANI15TA PO (14:32)
== END 2017-05-20 20:33 | disposition home or self-care (01) ==
LOC: M ED 17:31
DX: J32.9 Chronic sinusitis, unspecified (principal); J06.9 Acute upper respiratory infection, unspecified; I10 Essential (primary) hypertension; J45.909 Unspecified asthma, uncomplicated; E07.9 Disorder of thyroid, unspecified; Z79.899 Other long term (current) drug therapy; Z79.82 Long term (current) use of aspirin; Z88.0 Allergy status to penicillin; Z91.018 Allergy to other foods; Z87.891 Personal history of nicotine dependence

== ENCOUNTER 2017-06-16 07:59 | Day surgery (SDC) | payer MEDICARE, MEDICAID ==
[~2017-06-16] VITALS: Ht 170.2 cm; Wt 62.6 kg
[~2017-06-16 07:59] MED LIST changes: +ACETAMINOPHEN 325 MG TAB PO PRN; +BIAX500T13 PO; +BSS with VANC/TOB/EPI for EYE CASES IR ONE; +CLAR5TAB7 PO; +CYCLOPENTOLATE 2% OPHTH SOLN 2ML BTL OS ONE; +LIDOCAINE 3.5 % 1ML OPHTH TOPICAL GEL OU ONE; +OFLOXACIN 0.3 % (OCUFLOX) OPTH SOL 5ML OS ONE; +PHENYLEPHRINE 2.5% OPHTH SOL 2ML OS ONE; +PROPARACAINE 0.5% OPHTH SOL 15ML OS PRN; +RANI15TA PO; +TROPICAMIDE 1% OPHTH SOLN 2ML OS ONE
[2017-06-16] MEDS ORDERED: LR 1,000 ML IV ONE (08:15)
[2017-06-16] MEDS ORDERED: TRIAMCINOLONE PRES FR 40 MG/ML 1ML(TRIESENCE)(OR EYE ONLY)(J3300 PER 1MG) As Ordered ONE (09:15)
[2017-06-16] MEDS ORDERED: LIDOCAINE 1% SDV 5 ML VIAL As Ordered ONE (09:15)
[2017-06-16] MEDS ORDERED: HEALON DUET (HEALON 10MG/ML 0.55ML & HEALON ENDOCOAT 30MG/ML 0.85ML) As Ordered ONE (09:15)
[2017-06-16] MEDS ORDERED: POVIDONE-IODINE 5% OPHTH PREP SOL 30ML As Ordered ONE (09:15)
[2017-06-16] MEDS ORDERED: MOXIFLOXACIN IN BSS 0.25MG/0.25ML INTRACAMERAL INJ (OR EYE ONLY)(J2280) As Ordered ONE (09:15)
[2017-06-16] MEDS ORDERED: fentaNYL 100 MCG/2 ML INJECTION (J3010) As Ordered ONE (09:17)
[2017-06-16] MEDS ORDERED: MIDAZOLAM INJ 2 MG/2 ML VIAL (J2250) As Ordered ONE (09:17)
[2017-06-16 10:10] VITALS: BP 153/86
[2017-06-16] MEDS ORDERED: AcetaZOLAMIDE 500 MG ER CAP As Ordered ONE (10:11)
[2017-06-16] MEDS ORDERED: TRIMETHOBENZAMIDE 300 MG CAP PO PRN (10:15)
[2017-06-16] MEDS ORDERED: KETOROLAC 0.5% OPHTH SOLN OS ONE (10:15)
[2017-06-16] MEDS ORDERED: AcetaZOLAMIDE 500 MG ER CAP PO ONE (10:15)
== END 2017-06-16 10:44 | disposition home or self-care (01) ==
LOC: M SDC 07:59
PROVIDERS: ATTEND Ophthalmology
DX: H25.12 Age-related nuclear cataract, left eye (principal); I10 Essential (primary) hypertension; E03.9 Hypothyroidism, unspecified; E78.2 Mixed hyperlipidemia; J44.9 Chronic obstructive pulmonary disease, unspecified; F31.9 Bipolar disorder, unspecified; K62.5 Hemorrhage of anus and rectum; N81.4 Uterovaginal prolapse, unspecified; K21.9 Gastro-esophageal reflux disease without esophagitis; M54.2 Cervicalgia; F41.9 Anxiety disorder, unspecified; R51 Headache; Z88.0 Allergy status to penicillin; Z91.018 Allergy to other foods; Z79.899 Other long term (current) drug therapy; Z79.82 Long term (current) use of aspirin; Z87.891 Personal history of nicotine dependence; Z98.51 Tubal ligation status; Z78.0 Asymptomatic menopausal state
CPT/HCPCS: 66984; J2250; J2280; J3010; J3300; V2632

== ENCOUNTER → 2017-07-30 | Outpatient (REF) | payer MEDICARE, MEDICAID ==
[~2017-07-30] MED LIST changes: -ACETAMINOPHEN 325 MG TAB PO PRN; -BSS with VANC/TOB/EPI for EYE CASES IR ONE; -CYCLOPENTOLATE 2% OPHTH SOLN 2ML BTL OS ONE; -LIDOCAINE 3.5 % 1ML OPHTH TOPICAL GEL OU ONE; -OFLOXACIN 0.3 % (OCUFLOX) OPTH SOL 5ML OS ONE; -PHENYLEPHRINE 2.5% OPHTH SOL 2ML OS ONE; -PROPARACAINE 0.5% OPHTH SOL 15ML OS PRN; -TROPICAMIDE 1% OPHTH SOLN 2ML OS ONE
[2017-07-30 12:16] LABS: ALBUMIN 3.7 GM/DL (3.2-5.2); ALBUMIN/GLOBULIN RATIO 1.28 (1.00-1.93); ALKALINE PHOSPHATASE 62 U/L (45-117); ALT/SGPT 29 U/L (12-78); ANION GAP 6 MEQ/L (8-16); AST/SGOT 21 U/L (7-37); BILIRUBIN,TOTAL 1.2 MG/DL (0.2-1.0); BLOOD UREA NITROGEN 15 MG/DL (7-18); CALCIUM LEVEL 9.3 MG/DL (8.8-10.2); CARBON DIOXIDE LEVEL 33 MEQ/L (21-32); CHLORIDE LEVEL 92 MEQ/L (98-107); CHOLESTEROL LEVEL 205 MG/DL (<200); CREATININE FOR GFR 0.79 MG/DL (0.55-1.02); FREE T4 1.15 NG/DL (0.76-1.46); GLOMERULAR FILTRATION RATE > 60.0 (>45); GLUCOSE, FASTING 106 MG/DL (80-110); POTASSIUM SERUM 4.6 MEQ/L (3.5-5.1); SODIUM LEVEL 131 MEQ/L (136-145); TOTAL PROTEIN 6.6 GM/DL (6.4-8.2); TRIGLYCERIDES LEVEL 63 MG/DL (<150)
== END ==
LOC: M SFHCPLAZ 09:42
PROVIDERS: ATTEND Nurse Practitioner Family
DX: E55.9 Vitamin D deficiency, unspecified (principal); I10 Essential (primary) hypertension; E03.9 Hypothyroidism, unspecified; E11.9 Type 2 diabetes mellitus without complications

== ENCOUNTER 2017-09-01 17:12 | Emergency (ER) | payer MEDICARE, MEDICAID, OTHER ==
[~2017-09-01] VITALS: Ht 167.6 cm; Wt 70.1 kg
[2017-09-01 17:33] VITALS: BP 168/92
[2017-09-01] MEDS ORDERED: ACETAMINOPHEN 325 MG TAB PO ONE (18:00)
[2017-09-01] MEDS ORDERED: CLINDAMYCIN 150 MG CAP PO ONE (18:00)
[2017-09-01] MEDS ORDERED: CLEO300C2 PO (18:04)
== END 2017-09-01 18:12 | disposition home or self-care (01) ==
LOC: M ED 17:12
DX: J01.90 Acute sinusitis, unspecified (principal); J45.909 Unspecified asthma, uncomplicated; E11.9 Type 2 diabetes mellitus without complications; I10 Essential (primary) hypertension; E07.9 Disorder of thyroid, unspecified; F31.9 Bipolar disorder, unspecified; E78.70 Disorder of bile acid and cholesterol metabolism, unspecified; Z79.82 Long term (current) use of aspirin; Z79.899 Other long term (current) drug therapy; Z88.0 Allergy status to penicillin; Z91.018 Allergy to other foods

== ENCOUNTER 2017-10-22 11:05 | Emergency (ER) | payer MEDICARE, MEDICAID, OTHER | END 2017-10-22 12:53 | disposition home or self-care (01) | LOC: M ED 11:05 | DX: S83.92XA Sprain of unspecified site of left knee, initial encounter (principal); W01.0XXA Fall on same level from slipping, tripping and stumbling without subsequent striking against object, initial encounter; Y92.481 Parking lot as the place of occurrence of the external cause; I10 Essential (primary) hypertension; E78.5 Hyperlipidemia, unspecified; M81.0 Age-related osteoporosis without current pathological fracture; Z79.899 Other long term (current) drug therapy; Z79.82 Long term (current) use of aspirin; Z88.0 Allergy status to penicillin; Z91.018 Allergy to other foods | CPT/HCPCS: 73564 ==

== ENCOUNTER → 2017-10-24 | Outpatient (REF) | payer MEDICARE, MEDICAID ==
[2017-10-24 12:35] LABS: ESTIMATED AVERAGE GLUCOSE 120 MG/DL (60-110); HEMOGLOBIN A1c 5.8 %
[2017-10-24 12:38] LABS: ALBUMIN 3.8 GM/DL (3.2-5.2); ALBUMIN/GLOBULIN RATIO 1.27 (1.00-1.93); ALKALINE PHOSPHATASE 67 U/L (45-117); ALT/SGPT 20 U/L (12-78); ANION GAP 6 MEQ/L (8-16); AST/SGOT 16 U/L (7-37); BLOOD UREA NITROGEN 16 MG/DL (7-18); CALCIUM LEVEL 9.2 MG/DL (8.8-10.2); CARBON DIOXIDE LEVEL 32 MEQ/L (21-32); CHLORIDE LEVEL 94 MEQ/L (98-107); CREATININE FOR GFR 0.72 MG/DL (0.55-1.30); GLOMERULAR FILTRATION RATE > 60.0 (>45); GLUCOSE, FASTING 110 MG/DL (70-100); POTASSIUM SERUM 4.7 MEQ/L (3.5-5.1); SODIUM LEVEL 132 MEQ/L (136-145); TOTAL PROTEIN 6.8 GM/DL (6.4-8.2)
== END ==
LOC: M SFHCPLAZ 08:48
DX: E87.1 Hypo-osmolality and hyponatremia (principal); E80.6 Other disorders of bilirubin metabolism; E11.9 Type 2 diabetes mellitus without complications
CPT/HCPCS: 80053

== ENCOUNTER 2017-10-28 12:00 | Emergency (ER) | payer MEDICARE, MEDICAID ==
[2017-10-28 13:56] LABS: INFLUENZA A AMPLIFICATION NEGATIVE (NEGATIVE); INFLUENZA B AMPLIFICATION NEGATIVE (NEGATIVE)
[2017-10-28] MEDS: BACTRIM 160MG/800MG DS TAB PO (14:28)
== END 2017-10-28 14:29 | disposition home or self-care (01) ==
LOC: M ED 12:00
DX: J01.90 Acute sinusitis, unspecified (principal); J20.9 Acute bronchitis, unspecified; J45.909 Unspecified asthma, uncomplicated; I10 Essential (primary) hypertension; E78.00 Pure hypercholesterolemia, unspecified; E03.9 Hypothyroidism, unspecified; K21.9 Gastro-esophageal reflux disease without esophagitis; M81.0 Age-related osteoporosis without current pathological fracture; F20.9 Schizophrenia, unspecified; F33.9 Major depressive disorder, recurrent, unspecified; F41.9 Anxiety disorder, unspecified; Z79.890 Hormone replacement therapy; Z79.899 Other long term (current) drug therapy; Z79.82 Long term (current) use of aspirin; Z88.0 Allergy status to penicillin; Z91.018 Allergy to other foods; Z87.891 Personal history of nicotine dependence; Z98.890 Other specified postprocedural states; Z86.69 Personal history of other diseases of the nervous system and sense organs; Z87.09 Personal history of other diseases of the respiratory system
CPT/HCPCS: 87502

== ENCOUNTER 2018-02-15 15:38 | Emergency (ER) | payer MEDICARE, MEDICAID ==
[2018-02-15] MEDS: CIPROFLOXACIN HC OTIC SUSPENSION AU ×2 (17:00)
== END 2018-02-15 17:00 | disposition home or self-care (01) ==
LOC: M ED 15:38
DX: H60.93 Unspecified otitis externa, bilateral (principal); E11.9 Type 2 diabetes mellitus without complications; I10 Essential (primary) hypertension; E78.00 Pure hypercholesterolemia, unspecified; E03.9 Hypothyroidism, unspecified; J44.9 Chronic obstructive pulmonary disease, unspecified; J45.909 Unspecified asthma, uncomplicated; F31.9 Bipolar disorder, unspecified; F41.9 Anxiety disorder, unspecified; F20.9 Schizophrenia, unspecified; Z87.891 Personal history of nicotine dependence; Z79.899 Other long term (current) drug therapy; Z88.0 Allergy status to penicillin; Z88.8 Allergy status to other drugs, medicaments and biological substances; Z91.018 Allergy to other foods
CPT/HCPCS: 84550; 99282

== ENCOUNTER → 2018-03-13 | Outpatient (CLI) | payer MEDICARE ==
[2018-03-13 19:53] LABS: ANION GAP 6 MEQ/L (8-16); BLOOD UREA NITROGEN 18 MG/DL (7-18); CALCIUM LEVEL 8.8 MG/DL (8.8-10.2); CARBON DIOXIDE LEVEL 32 MEQ/L (21-32); CHLORIDE LEVEL 92 MEQ/L (98-107); GLOMERULAR FILTRATION RATE 59.4 (>45); GLUCOSE, FASTING 85 MG/DL (70-100); POTASSIUM SERUM 4.8 MEQ/L (3.5-5.1); SODIUM LEVEL 130 MEQ/L (136-145)
== END ==
LOC: M SMT 15:45
DX: Z86.39 Personal history of other endocrine, nutritional and metabolic disease (principal)
CPT/HCPCS: 80048

== ENCOUNTER 2018-04-18 16:52 | Emergency (ER) | payer MEDICARE, MEDICAID ==
[2018-04-18] MEDS: NS 1,000 ML IV (18:21)
[2018-04-18 18:29] LABS: BASO # 0.1 10^3/uL (0.0-0.2); BASO % 0.8 % (0.0-1.0); EOS # 0.1 10^3/uL (0.0-0.50); EOS % 0.9 % (0.0-3.0); HEMATOCRIT 40.1 % (36.0-47.0); HEMOGLOBIN 13.8 g/dl (12.0-15.5); IMMATURE GRANULOCYTE % 0.6 % (0-3.0); LYMPH % 23.3 % (24.0-44.0); MEAN CORPUSCULAR HEMOGLOBIN 31.2 pg (27.0-33.0); MEAN CORPUSCULAR HGB CONC 34.4 g/dl (32.0-36.5); MEAN CORPUSCULAR VOLUME 90.5 fl (80.0-96.0); MONO # 0.7 10^3/uL (0.0-0.8); MONO % 8.1 % (0.0-5.0); NEUTROPHILS # 5.8 10^3/uL (1.8-7.7); NEUTROPHILS % 66.3 % (36.0-66.0); PLATELET COUNT, AUTOMATED 229 10^3/uL (150-450); RED BLOOD COUNT 4.43 10^6/uL (4.00-5.40); WHITE BLOOD COUNT 8.7 10^3/uL (4.0-10.0)
[2018-04-18 18:42] LABS: D-DIMER QUANT 1074.7 ng/ml (<500)
[2018-04-18 18:50] LABS: ALBUMIN 3.7 GM/DL (3.2-5.2); ALBUMIN/GLOBULIN RATIO 1.09 (1.00-1.93); ALKALINE PHOSPHATASE 83 U/L (45-117); ALT/SGPT 23 U/L (12-78); ANION GAP 7 MEQ/L (8-16); AST/SGOT 26 U/L (7-37); BILIRUBIN,DIRECT 0.2 MG/DL (0.0-0.2); BILIRUBIN,TOTAL 0.8 MG/DL (0.2-1.0); BLOOD UREA NITROGEN 14 MG/DL (7-18); CALCIUM LEVEL 9.3 MG/DL (8.8-10.2); CARBON DIOXIDE LEVEL 28 MEQ/L (21-32); CHLORIDE LEVEL 95 MEQ/L (98-107); CPK CREATINE PHOSPHOKINASE 126 U/L (26-192); CREATININE FOR GFR 0.83 MG/DL (0.55-1.30); GLOMERULAR FILTRATION RATE > 60.0 (>45); GLUCOSE, FASTING 95 MG/DL (70-100); LIPASE 182 U/L (73-393); POTASSIUM SERUM 4.5 MEQ/L (3.5-5.1); SODIUM LEVEL 130 MEQ/L (136-145); TOTAL PROTEIN 7.1 GM/DL (6.4-8.2); TROPONIN I < 0.02 NG/ML (< 0.10)
[2018-04-18 18:51] LABS: CK-MB VALUE MASS 1.5 NG/ML (<3.6); MB/CK RELATIVE INDEX 1.19 (< OR =4)
[2018-04-18] MEDS ORDERED: ISOVUE-370 76% 100ML VIAL (Q9967) As Ordered (18:58)
== END 2018-04-18 20:10 | disposition home or self-care (01) ==
LOC: M ED 16:52
DX: R07.89 Other chest pain (principal); R51 Headache; I10 Essential (primary) hypertension; E11.9 Type 2 diabetes mellitus without complications; K21.9 Gastro-esophageal reflux disease without esophagitis; J45.909 Unspecified asthma, uncomplicated; E03.9 Hypothyroidism, unspecified; M81.0 Age-related osteoporosis without current pathological fracture; F31.9 Bipolar disorder, unspecified; Z87.891 Personal history of nicotine dependence; Z88.0 Allergy status to penicillin; Z88.8 Allergy status to other drugs, medicaments and biological substances; Z91.018 Allergy to other foods; Z79.899 Other long term (current) drug therapy
CPT/HCPCS: Q9967

== ENCOUNTER → 2018-05-14 | Outpatient (CLI) | payer MEDICARE, MEDICAID ==
[2018-05-14 12:46] LABS: ALBUMIN 3.6 GM/DL (3.2-5.2); ALBUMIN/GLOBULIN RATIO 1.06 (1.00-1.93); ALKALINE PHOSPHATASE 75 U/L (45-117); ALT/SGPT 24 U/L (12-78); ANION GAP 7 MEQ/L (8-16); AST/SGOT 19 U/L (7-37); BLOOD UREA NITROGEN 13 MG/DL (7-18); CALCIUM LEVEL 9.6 MG/DL (8.8-10.2); CARBON DIOXIDE LEVEL 31 MEQ/L (21-32); CHLORIDE LEVEL 92 MEQ/L (98-107); CHOLESTEROL LEVEL 176 MG/DL (<200); CHOLESTEROL RISK RATIO 2.933 (<5); CREATININE FOR GFR 0.85 MG/DL (0.55-1.30); FREE T4 1.08 NG/DL (0.76-1.46); GLOMERULAR FILTRATION RATE > 60.0 (>45); GLUCOSE, FASTING 95 MG/DL (70-100); HDL CHOLESTEROL 60 MG/DL (>40); LDL CHOLESTEROL 100.4 MG/DL (<100); NON-HDL-C 116 MG/DL; POTASSIUM SERUM 5.1 MEQ/L (3.5-5.1); SODIUM LEVEL 130 MEQ/L (136-145); TRIGLYCERIDES LEVEL 78 MG/DL (<150)
[2018-05-14 15:20] LABS: ESTIMATED AVERAGE GLUCOSE 123 MG/DL (60-110); HEMOGLOBIN A1c 5.9 %
== END ==
LOC: M LAB 11:00
DX: E78.2 Mixed hyperlipidemia (principal); I10 Essential (primary) hypertension; E03.9 Hypothyroidism, unspecified; E11.9 Type 2 diabetes mellitus without complications
CPT/HCPCS: 84443

== ENCOUNTER → 2018-05-27 | Outpatient (REF) | payer OTHER, MEDICAID ==
[2018-05-27 15:47] LABS: AMORPHOUS SEDIMENT SMALL (NEGATIVE); APPEARANCE, URINE CLOUDY (CLEAR); BACTERIA, URINE AUTO 1+ (NEGATIVE); BILIRUBIN, URINE AUTO NEGATIVE (NEGATIVE); BLOOD, URINE BLOOD NEGATIVE (NEGATIVE); COLOR, URINE YELLOW (YELLOW); GLUCOSE, URINE (UA) AUTO NEGATIVE (NEGATIVE); KETONE, URINE AUTO NEGATIVE (NEGATIVE); LEUKOCYTE ESTERASE, URINE AUTO 3+ (NEGATIVE); NITRITE, URINE AUTO NEGATIVE (NEGATIVE); PROTEIN, URINE AUTO NEGATIVE (NEGATIVE); RBC, URINE AUTO 3 /HPF (0-3); SPECIFIC GRAVITY URINE AUTO 1.012 (1.002-1.035); SQUAMOUS EPITHELIAL CELL UR AU 2 /HPF (0-6); UROBILINOGEN, URINE AUTO 0.2 mg/dL (0.0-2.0); WBC, URINE AUTO 26 /HPF (0-3)
== END ==
LOC: M SFHCPLAZ 13:54
DX: R35.0 Frequency of micturition (principal)

== ENCOUNTER → 2018-08-24 | Outpatient (CLI) | payer MEDICARE ==
[~2018-08-24] MED LIST changes: +ALDA25TA2; +AUGM875T28; +AUGM875T28 PO; +BACT800T5 PO; -BIAX500T13 PO; +BIAX500T14 PO; +CIPR0.3S AU; +CLEO300C2 PO; +DIFL150T PO; -DOXY-278 PO; +DOXY-350 PO; +FLUTISP; +IBUP-1022 PO; -LOSA100T36 PO; +LOSA100T50 PO; +MYRB25TA PO; +PROAAER10 INH
--- NOTE | 2018-08-24 17:56 | REPMRS ---
Patient History The patient states she had a clinical breast exam in 08/25 Patient is postmenopausal. No known family history of cancer. Took estrogen for 1 year. Digital Woman Screen Mammo: August 24, 2018 - Exam #: [id number] Bilateral CC and MLO view(s) were taken. Technologist: Jayda Win, Technologist Prior study comparison: February 14, 2017, digital woman screen mammo performed at [facility]. January 26, 2016, digital woman screen mammo performed at [facility]. December 08, 2014, digital woman screen mammo performed at [facility]. FINDINGS: The breast tissue is almost entirely fat. There is a stable nodular opacity in the left lateral breast with smooth margins, unchanged. There has been no change in the appearance of the mammogram from the prior studies. There is no interval development of dominant mass, architectural distortion, or clustered microcalcification typical of malignancy. 3-D tomosynthesis shows no additional findings. Assessment: BI-RADS/ACR category 2 mammogram. Benign finding(s). Recommendation Routine screening mammogram of both breasts in 1 year (for women over age 40). This patient's Lifetime Breast Cancer RIsk is estimated at 4.2 %. This mammogram was interpreted with the aid of an FDA-approved computer-aided dectection system. Electronically Signed By: Bahman Burk MD 08/24/18 [id number]
== END ==
LOC: M WHC 14:21
PROVIDERS: ATTEND Nurse Practitioner Family
DX: Z12.31 Encounter for screening mammogram for malignant neoplasm of breast (principal); Z78.0 Asymptomatic menopausal state; Z92.23 Personal history of estrogen therapy; Z12.4 Encounter for screening for malignant neoplasm of cervix; R87.612 Low grade squamous intraepithelial lesion on cytologic smear of cervix (LGSIL); N95.2 Postmenopausal atrophic vaginitis; Z12.12 Encounter for screening for malignant neoplasm of rectum
CPT/HCPCS: 77063; 77067; 82270; 87624; G0123; G0463

== ENCOUNTER → 2018-08-24 | Outpatient (REF) | payer MEDICARE | LOC: M SFHCWAGY 15:30 | DX: Z12.4 Encounter for screening for malignant neoplasm of cervix (principal); R87.612 Low grade squamous intraepithelial lesion on cytologic smear of cervix (LGSIL); N95.2 Postmenopausal atrophic vaginitis | CPT/HCPCS: G0123 ==

== ENCOUNTER → 2018-09-22 | Outpatient (REF) | payer MEDICARE ==
[2018-09-22 19:39] LABS: BASO # 0.1 10^3/uL (0.0-0.2); BASO % 0.7 % (0.0-1.0); EOS # 0.1 10^3/uL (0.0-0.50); EOS % 0.5 % (0.0-3.0); HEMATOCRIT 42.7 % (36.0-47.0); HEMOGLOBIN 14.2 g/dl (12.0-15.5); LYMPH # 2.1 10^3/uL (1.5-4.5); LYMPH % 17.7 % (24.0-44.0); MEAN CORPUSCULAR HEMOGLOBIN 30.9 pg (27.0-33.0); MEAN CORPUSCULAR HGB CONC 33.3 g/dl (32.0-36.5); MEAN CORPUSCULAR VOLUME 92.8 fl (80.0-96.0); MONO # 0.8 10^3/uL (0.0-0.8); MONO % 6.9 % (0.0-5.0); NEUTROPHILS # 8.9 10^3/uL (1.8-7.7); NEUTROPHILS % 73.6 % (36.0-66.0); PLATELET COUNT, AUTOMATED 256 10^3/uL (150-450); WHITE BLOOD COUNT 12.1 10^3/uL (4.0-10.0)
[2018-09-22 19:46] LABS: ALT/SGPT 26 U/L (12-78); BLOOD UREA NITROGEN 20 MG/DL (7-18); CALCIUM LEVEL 9.1 MG/DL (8.8-10.2); CARBON DIOXIDE LEVEL 27 MEQ/L (21-32); CHLORIDE LEVEL 94 MEQ/L (98-107); CHOLESTEROL LEVEL 191 MG/DL (<200); CHOLESTEROL RISK RATIO 2.581 (<5); CREATININE FOR GFR 1.22 MG/DL (0.55-1.30); GLOMERULAR FILTRATION RATE 47.1 (>45); GLUCOSE, FASTING 93 MG/DL (70-100); HDL CHOLESTEROL 74 MG/DL (>40); LDL CHOLESTEROL 83 MG/DL (<100); NON-HDL-C 117 MG/DL; POTASSIUM SERUM 4.1 MEQ/L (3.5-5.1); SODIUM LEVEL 132 MEQ/L (136-145); TOTAL PROTEIN 7.7 GM/DL (6.4-8.2); TRIGLYCERIDES LEVEL 171 MG/DL (<150)
[2018-09-22 19:48] LABS: TOTAL 25(OH) VITAMIN D 27.9 NG/ML (30.0-100.0); VITAMIN B12 LEVEL > 2000 PG/ML
[2018-09-23 17:49] LABS: FOLATE > 24.0 NG/ML
== END ==
LOC: M LAB REF 19:08
PROVIDERS: ATTEND Nurse Practitioner Family
DX: I10 Essential (primary) hypertension (principal); Z13.9 Encounter for screening, unspecified

== ENCOUNTER → 2018-10-12 | Outpatient (REF) | payer MEDICARE | LOC: M SFHCWAGY 14:42 | PROVIDERS: ATTEND Nurse Practitioner Women's Health | DX: D26.0 Other benign neoplasm of cervix uteri (principal) ==

== ENCOUNTER 2018-11-05 13:37 | Emergency (ER) | payer MEDICARE, MEDICAID ==
[~2018-11-05] VITALS: Ht 170.2 cm; Wt 71.4 kg
[2018-11-05] MEDS ORDERED: AMLO5TAB6 PO (13:50)
[2018-11-05] MEDS ORDERED: NITROFURANTOIN (MACROBID) 100 MG CAP PO ONE (16:30)
--- NOTE | 2018-11-05 16:57 | REP ---
Clinical: Urinary retention. Technique: Axial noncontrast images from the lung bases to the pubic symphysis with coronal and sagittal re-formations. Comparison: 11/12/2016. Findings: Liver, spleen, pancreas, gallbladder, bilateral adrenal glands and kidneys are essentially normal/stable. Left adrenal adenoma and rounded renal hypodensities remain stable and consistent with renal cysts. No perinephric stranding or hydroureteronephrosis is appreciated. A Esqueda catheter is identified within partially collapsed bladder. The enteric system demonstrates moderate fecal stasis and presumed constipation without obstruction or acute inflammatory process. Further evaluation the pelvis demonstrates age appropriate uterus / adnexa. No ascites. No free air. No adenopathy. Atherosclerotic changes to the aorta and vasculature noted without aneurysm. Musculoskeletal structures demonstrate age-related changes without focal osseous abnormality. Lung bases are relatively clear. Impression: 1. Urinary tract system demonstrates stable renal cysts and no evidence for hydroureteronephrosis or perinephric stranding. Esqueda catheter in partially collapsed bladder grossly unremarkable. 2. Stable benign left adrenal adenoma. 3. Moderate fecal stasis and possible constipation. Electronically Signed by Liam Duran MD 11/05/2018 04:48 P
[2018-11-05 17:17] LABS: BASO # 0.1 10^3/uL (0.0-0.2); BASO % 0.7 % (0.0-1.0); EOS # 0.1 10^3/uL (0.0-0.50); EOS % 1.2 % (0.0-3.0); HEMATOCRIT 38.9 % (36.0-47.0); HEMOGLOBIN 13.3 g/dl (12.0-15.5); LYMPH # 1.9 10^3/uL (1.5-4.5); LYMPH % 16.5 % (24.0-44.0); MEAN CORPUSCULAR HEMOGLOBIN 31.4 pg (27.0-33.0); MEAN CORPUSCULAR HGB CONC 34.2 g/dl (32.0-36.5); MONO # 0.9 10^3/uL (0.0-0.8); MONO % 7.5 % (0.0-5.0); NEUTROPHILS # 8.7 10^3/uL (1.8-7.7); NEUTROPHILS % 73.4 % (36.0-66.0); PLATELET COUNT, AUTOMATED 254 10^3/uL (150-450); RED BLOOD COUNT 4.23 10^6/uL (4.00-5.40); WHITE BLOOD COUNT 11.8 10^3/uL (4.0-10.0)
[2018-11-05 17:49] LABS: BLOOD UREA NITROGEN 17 MG/DL (7-18); CALCIUM LEVEL 9.4 MG/DL (8.8-10.2); CARBON DIOXIDE LEVEL 30 MEQ/L (21-32); CHLORIDE LEVEL 97 MEQ/L (98-107); CREATININE FOR GFR 0.87 MG/DL (0.55-1.30); GLOMERULAR FILTRATION RATE > 60.0 (>45); GLUCOSE, FASTING 90 MG/DL (70-100); POTASSIUM SERUM 4.1 MEQ/L (3.5-5.1); SODIUM LEVEL 132 MEQ/L (136-145)
[2018-11-05] MEDS ORDERED: CIPR-249 PO (18:43)
[2018-11-05 18:46] VITALS: BP 130/72
== END 2018-11-05 19:15 | disposition home or self-care (01) ==
LOC: M ED 13:37
DX: N30.90 Cystitis, unspecified without hematuria (principal); R33.9 Retention of urine, unspecified; N28.1 Cyst of kidney, acquired; D35.00 Benign neoplasm of unspecified adrenal gland; K59.00 Constipation, unspecified; R10.30 Lower abdominal pain, unspecified; N32.81 Overactive bladder; N81.4 Uterovaginal prolapse, unspecified; Z88.0 Allergy status to penicillin; Z91.018 Allergy to other foods; Z88.8 Allergy status to other drugs, medicaments and biological substances; Z79.899 Other long term (current) drug therapy

== ENCOUNTER 2018-11-07 13:43 | Emergency (ER) | payer MEDICARE, MEDICAID ==
[~2018-11-07] VITALS: Ht 170.2 cm; Wt 71.8 kg
[~2018-11-07 13:43] MED LIST changes: +AMLO5TAB6 PO; +CIPR-249 PO
[2018-11-07 14:26] LABS: BILIRUBIN, URINE MANUAL NEGATIVE (NEGATIVE); GLUCOSE, URINE (UA) MANUAL NEGATIVE (NEGATIVE); KETONE, URINE MANUAL NEGATIVE (NEGATIVE); UROBILINOGEN, URINE MANUAL NORMAL (NORMAL)
[2018-11-07 14:28] LABS: HEMATOCRIT 37.6 % (36.0-47.0); HEMOGLOBIN 12.7 g/dl (12.0-15.5); MEAN CORPUSCULAR HEMOGLOBIN 30.8 pg (27.0-33.0); MEAN CORPUSCULAR HGB CONC 33.8 g/dl (32.0-36.5); PLATELET COUNT, AUTOMATED 281 10^3/uL (150-450); RED BLOOD COUNT 4.13 10^6/uL (4.00-5.40)
[2018-11-07 14:42] LABS: SQUAMOUS EPITHELIAL CELL URINE NONE SEEN /hpf (SMALL AMT)
[2018-11-07 14:43] LABS: RBC, URINE 30-40 /hpf (0-3); TRANSITIONAL EPI CELLS, URINE SMALL AMOUNT /hpf
[2018-11-07 14:44] LABS: BACTERIA, URINE NONE SEEN; HYALINE CAST, URINE NONE SEEN /lpf (0-1)
[2018-11-07 15:20] LABS: BLOOD UREA NITROGEN 19 MG/DL (7-18); CALCIUM LEVEL 8.8 MG/DL (8.8-10.2); CARBON DIOXIDE LEVEL 28 MEQ/L (21-32); CHLORIDE LEVEL 97 MEQ/L (98-107); CREATININE FOR GFR 0.92 MG/DL (0.55-1.30); GLOMERULAR FILTRATION RATE > 60.0 (>45); GLUCOSE, FASTING 117 MG/DL (70-100); POTASSIUM SERUM 4.5 MEQ/L (3.5-5.1); SODIUM LEVEL 132 MEQ/L (136-145)
[2018-11-07 15:30] VITALS: BP 117/71
== END 2018-11-07 15:51 | disposition home or self-care (01) ==
LOC: M ED 13:43
DX: R31.9 Hematuria, unspecified (principal); Z96.0 Presence of urogenital implants; R33.9 Retention of urine, unspecified; E11.9 Type 2 diabetes mellitus without complications; I10 Essential (primary) hypertension; J45.909 Unspecified asthma, uncomplicated; J44.9 Chronic obstructive pulmonary disease, unspecified; Z87.440 Personal history of urinary (tract) infections; E78.5 Hyperlipidemia, unspecified; F31.9 Bipolar disorder, unspecified; M81.0 Age-related osteoporosis without current pathological fracture; R51 Headache; Z88.0 Allergy status to penicillin; Z91.018 Allergy to other foods; Z88.8 Allergy status to other drugs, medicaments and biological substances; Z79.899 Other long term (current) drug therapy; Z79.2 Long term (current) use of antibiotics

== ENCOUNTER → 2019-01-12 | Outpatient (REF) | payer MEDICARE, MEDICAID ==
[~2019-01-12] MED LIST changes: -ASPI1TAB PO; +ASPI81TA26 PO
[2019-01-12 17:55] LABS: BASO # 0.1 10^3/uL (0.0-0.2); EOS # 0.1 10^3/uL (0.0-0.50); EOS % 0.5 % (0.0-3.0); HEMATOCRIT 40.6 % (36.0-47.0); HEMOGLOBIN 13.4 g/dl (12.0-15.5); LYMPH # 1.8 10^3/uL (1.5-4.5); MEAN CORPUSCULAR HEMOGLOBIN 30.2 pg (27.0-33.0); MEAN CORPUSCULAR VOLUME 91.4 fl (80.0-96.0); MONO # 0.8 10^3/uL (0.0-0.8); MONO % 8.6 % (0.0-5.0); NEUTROPHILS # 6.5 10^3/uL (1.8-7.7); NEUTROPHILS % 70.5 % (36.0-66.0); PLATELET COUNT, AUTOMATED 316 10^3/uL (150-450); RED BLOOD COUNT 4.44 10^6/uL (4.00-5.40); WHITE BLOOD COUNT 9.2 10^3/uL (4.0-10.0)
[2019-01-12 18:12] LABS: ALBUMIN 4.4 GM/DL (3.2-5.2); ALT/SGPT 26 U/L (12-78); BILIRUBIN,TOTAL 1.1 MG/DL (0.2-1.0); BLOOD UREA NITROGEN 14 MG/DL (7-18); CALCIUM LEVEL 9.7 MG/DL (8.8-10.2); CARBON DIOXIDE LEVEL 28 MEQ/L (21-32); CHLORIDE LEVEL 93 MEQ/L (98-107); CHOLESTEROL LEVEL 195 MG/DL (<200); CHOLESTEROL RISK RATIO 2.294 (<5); CREATININE FOR GFR 0.82 MG/DL (0.55-1.30); GLOMERULAR FILTRATION RATE > 60.0 (>45); GLUCOSE, FASTING 87 MG/DL (70-100); HDL CHOLESTEROL 85 MG/DL (>40); LDL CHOLESTEROL 96 MG/DL (<100); NON-HDL-C 110 MG/DL; POTASSIUM SERUM 4.8 MEQ/L (3.5-5.1); SODIUM LEVEL 129 MEQ/L (136-145); TOTAL 25(OH) VITAMIN D 42.4 NG/ML (30.0-100.0); TOTAL PROTEIN 7.3 GM/DL (6.4-8.2); TRIGLYCERIDES LEVEL 69 MG/DL (<150)
[2019-01-12 18:26] LABS: APPEARANCE, URINE CLEAR (CLEAR); BACTERIA, URINE AUTO NEGATIVE (NEGATIVE); BILIRUBIN, URINE AUTO NEGATIVE (NEGATIVE); BLOOD, URINE BLOOD NEGATIVE (NEGATIVE); COLOR, URINE YELLOW (YELLOW); GLUCOSE, URINE (UA) AUTO NEGATIVE (NEGATIVE); KETONE, URINE AUTO NEGATIVE (NEGATIVE); LEUKOCYTE ESTERASE, URINE AUTO 3+ (NEGATIVE); NITRITE, URINE AUTO NEGATIVE (NEGATIVE); PROTEIN, URINE AUTO NEGATIVE (NEGATIVE); RBC, URINE AUTO 2 /HPF (0-3); SPECIFIC GRAVITY URINE AUTO 1.008 (1.002-1.035); SQUAMOUS EPITHELIAL CELL UR AU 2 /HPF (0-6); TRANSITIONAL EPITHELIAL AUTO 1 /HPF; UROBILINOGEN, URINE AUTO 0.2 mg/dL (0.0-2.0); WBC, URINE AUTO 5 /HPF (0-3)
[2019-01-12 19:03] LABS: HEMOGLOBIN A1c 5.9 %
== END ==
LOC: M LAB REF 16:25
PROVIDERS: ATTEND Nurse Practitioner Family
DX: N32.81 Overactive bladder (principal); I10 Essential (primary) hypertension; E11.9 Type 2 diabetes mellitus without complications; E03.9 Hypothyroidism, unspecified; E55.9 Vitamin D deficiency, unspecified

== ENCOUNTER → 2019-02-11 | Outpatient (REF) | payer MEDICARE, MEDICAID ==
[2019-02-11 16:06] LABS: ALBUMIN 4.1 GM/DL (3.2-5.2); ALT/SGPT 28 U/L (12-78); BILIRUBIN,TOTAL 0.9 MG/DL (0.2-1.0); BLOOD UREA NITROGEN 13 MG/DL (7-18); CALCIUM LEVEL 10.1 MG/DL (8.8-10.2); CARBON DIOXIDE LEVEL 30 MEQ/L (21-32); CHLORIDE LEVEL 95 MEQ/L (98-107); CREATININE FOR GFR 0.77 MG/DL (0.55-1.30); FREE T4 1.24 NG/DL (0.76-1.46); GLOMERULAR FILTRATION RATE > 60.0 (>45); GLUCOSE, FASTING 105 MG/DL (70-100); POTASSIUM SERUM 4.4 MEQ/L (3.5-5.1); SODIUM LEVEL 133 MEQ/L (136-145); TOTAL PROTEIN 7.3 GM/DL (6.4-8.2)
== END ==
LOC: M SFHCPLAZ 12:06
PROVIDERS: ATTEND Nurse Practitioner Family
DX: I10 Essential (primary) hypertension (principal); E03.9 Hypothyroidism, unspecified
CPT/HCPCS: 36415; 80053; 84439; 84443; G0463

== ENCOUNTER → 2019-04-21 | Outpatient (REF) | payer MEDICARE, MEDICAID ==
[~2019-04-21] MED LIST changes: -OMEP20CA3 PO; +OMEP20CA4 PO
[2019-04-21 13:40] LABS: AMORPHOUS SEDIMENT MODERATE (NEGATIVE); APPEARANCE, URINE HAZY (CLEAR); BACTERIA, URINE AUTO NEGATIVE (NEGATIVE); BILIRUBIN, URINE AUTO NEGATIVE (NEGATIVE); BLOOD, URINE BLOOD NEGATIVE (NEGATIVE); COLOR, URINE YELLOW (YELLOW); GLUCOSE, URINE (UA) AUTO NEGATIVE (NEGATIVE); KETONE, URINE AUTO NEGATIVE (NEGATIVE); LEUKOCYTE ESTERASE, URINE AUTO TRACE (NEGATIVE); MUCUS, URINE SMALL (NEGATIVE); NITRITE, URINE AUTO NEGATIVE (NEGATIVE); PROTEIN, URINE AUTO NEGATIVE (NEGATIVE); RBC, URINE AUTO 2 /HPF (0-3); SPECIFIC GRAVITY URINE AUTO 1.009 (1.002-1.035); SQUAMOUS EPITHELIAL CELL UR AU 0 /HPF (0-6); UROBILINOGEN, URINE AUTO 0.2 mg/dL (0.0-2.0); WBC, URINE AUTO 3 /HPF (0-3)
[2019-04-21 14:52] LABS: BASO # 0.1 10^3/uL (0.0-0.2); BASO % 1.1 % (0.0-1.0); EOS # 0.1 10^3/uL (0.0-0.50); HEMATOCRIT 40.6 % (36.0-47.0); HEMOGLOBIN 13.4 g/dl (12.0-15.5); LYMPH # 2.1 10^3/uL (1.5-4.5); LYMPH % 26.2 % (24.0-44.0); MEAN CORPUSCULAR HEMOGLOBIN 30.5 pg (27.0-33.0); MEAN CORPUSCULAR VOLUME 92.3 fl (80.0-96.0); MONO # 0.6 10^3/uL (0.0-0.8); MONO % 6.9 % (0.0-5.0); NEUTROPHILS # 5.1 10^3/uL (1.8-7.7); PLATELET COUNT, AUTOMATED 300 10^3/uL (150-450)
[2019-04-21 16:19] LABS: ALT/SGPT 27 U/L (12-78); BILIRUBIN,TOTAL 0.9 MG/DL (0.2-1.0); BLOOD UREA NITROGEN 10 MG/DL (7-18); CALCIUM LEVEL 10.1 MG/DL (8.8-10.2); CARBON DIOXIDE LEVEL 28 MEQ/L (21-32); CHLORIDE LEVEL 97 MEQ/L (98-107); CREATININE FOR GFR 0.75 MG/DL (0.55-1.30); FREE T4 1.21 NG/DL (0.76-1.46); GLOMERULAR FILTRATION RATE > 60.0 (>45); GLUCOSE, FASTING 82 MG/DL (70-100); POTASSIUM SERUM 4.1 MEQ/L (3.5-5.1); SODIUM LEVEL 135 MEQ/L (136-145); TOTAL PROTEIN 7.4 GM/DL (6.4-8.2)
== END ==
LOC: M SFHCPLAZ 10:45
PROVIDERS: ATTEND Nurse Practitioner Family
DX: R53.83 Other fatigue (principal); R39.15 Urgency of urination
CPT/HCPCS: 36415; 80053; 81001; 84439; 84443; 85025; 87086; G0463

== ENCOUNTER → 2019-05-17 | Outpatient (CLI) | payer MEDICARE, MEDICAID ==
[~2019-05-17] MED LIST changes: +RANI-356 PO; -RANI1TAB6 PO
--- NOTE | 2019-05-18 07:37 | REP ---
CT chest without contrast: Low-dose screening exam. History: Former smoker. Comparison chest CT studies are from April 18, 2018, February 24, 2018, November 28, 2016, and November 22, 2011. CT findings: Digital preliminary concrete mason radiograph demonstrates periarticular soft tissue ossicles adjacent to the coracoid process of each shoulder, right larger than left. This could be a loose body or periarticular calcification. It is unchanged. The calcification or ossific density on the right and 1.8 cm in diameter. There is no visible pulmonary nodule. No infiltrate or mass lesion is seen. There is mild vascular calcification. No bony destructive lesion is seen. Previously noted cortical cyst is again seen at the upper pole of the left kidney. Impression: Lung RADS category one negative screening chest CT. Repeat screening chest CT study suggested 1 year. Periarticular calcifications versus ossicles both shoulders unchanged. Electronically Signed by Manny Burk MD 05/18/2019 09:07 A
== END ==
LOC: M RAD 13:07
PROVIDERS: ATTEND Nurse Practitioner Family
DX: Z12.2 Encounter for screening for malignant neoplasm of respiratory organs (principal); Z87.891 Personal history of nicotine dependence; N28.1 Cyst of kidney, acquired

== ENCOUNTER → 2019-08-03 | Outpatient (REF) | payer MEDICARE, MEDICAID ==
[2019-08-03 18:39] LABS: AMORPHOUS SEDIMENT SMALL (NEGATIVE); APPEARANCE, URINE CLEAR (CLEAR); BACTERIA, URINE AUTO NEGATIVE (NEGATIVE); BILIRUBIN, URINE AUTO NEGATIVE (NEGATIVE); BLOOD, URINE BLOOD NEGATIVE (NEGATIVE); COLOR, URINE YELLOW (YELLOW); GLUCOSE, URINE (UA) AUTO NEGATIVE (NEGATIVE); KETONE, URINE AUTO NEGATIVE (NEGATIVE); LEUKOCYTE ESTERASE, URINE AUTO 3+ (NEGATIVE); MUCUS, URINE SMALL (NEGATIVE); NITRITE, URINE AUTO NEGATIVE (NEGATIVE); PROTEIN, URINE AUTO NEGATIVE (NEGATIVE); RBC, URINE AUTO 1 /HPF (0-3); SPECIFIC GRAVITY URINE AUTO 1.006 (1.002-1.035); SQUAMOUS EPITHELIAL CELL UR AU 1 /HPF (0-6); TRANSITIONAL EPITHELIAL AUTO <1 /HPF; UROBILINOGEN, URINE AUTO 0.2 mg/dL (0.0-2.0); WBC, URINE AUTO 13 /HPF (0-3)
== END ==
LOC: M LAB REF 16:50
PROVIDERS: ATTEND Physician Assistant Medical
DX: N39.0 Urinary tract infection, site not specified (principal)

== ENCOUNTER → 2019-09-09 | Outpatient (CLI) | payer MEDICARE, MEDICAID ==
[~2019-09-09] MED LIST changes: +OMEP-172 PO; -OMEP20CA4 PO; -RANI-356 PO; +RANI-397 PO
[2019-09-09 15:09] LABS: APPEARANCE, URINE MANUAL CLOUDY (CLEAR); COLOR, URINE MANUAL DK YELLOW (YELLOW)
[2019-09-09 15:10] LABS: PH,URINE MAN 8.5 UNITS (5.0 - 7.0); SPECIFIC GRAVITY,URINE MANUAL 1.023 (1.002-1.035)
[2019-09-09 15:11] LABS: BILIRUBIN, URINE MANUAL OBSCURED (NEGATIVE); BLOOD URINE MANUAL TRACE (NEGATIVE); GLUCOSE, URINE (UA) MANUAL NEGATIVE (NEGATIVE); KETONE, URINE MANUAL NEGATIVE (NEGATIVE); LEUKOCYTE ESTERASE, URINE MAN POSITIVE (NEGATIVE); NITRITE, URINE MANUAL NEGATIVE (NEGATIVE); PROTEIN, URINE MANUAL NEGATIVE (NEGATIVE); UROBILINOGEN, URINE MANUAL NORMAL (NORMAL)
[2019-09-09 15:23] LABS: BASO # 0.1 10^3/uL (0.0-0.2); BASO % 1.3 % (0.0-1.0); EOS # 0.6 10^3/uL (0.0-0.5); EOS % 8.4 % (0.0-3.0); HEMATOCRIT 40.6 % (36.0-47.0); HEMOGLOBIN 13.4 g/dl (12.0-15.5); LYMPH # 1.6 10^3/uL (1.5-5.0); LYMPH % 22.7 % (24.0-44.0); MEAN CORPUSCULAR HEMOGLOBIN 31.3 pg (27.0-33.0); MEAN CORPUSCULAR VOLUME 94.9 fl (80.0-96.0); MONO # 0.8 10^3/uL (0.0-0.8); MONO % 11.4 % (0.0-5.0); NEUTROPHILS # 3.9 10^3/uL (1.5-8.5); NEUTROPHILS % 55.9 % (36.0-66.0); PLATELET COUNT, AUTOMATED 246 10^3/uL (150-450); RED BLOOD COUNT 4.28 10^6/uL (4.00-5.40); WHITE BLOOD COUNT 6.9 10^3/uL (4.0-10.0)
[2019-09-09 15:31] LABS: SQUAMOUS EPITHELIAL CELL URINE SMALL AMOUNT /hpf (SMALL AMT); TRANSITIONAL EPI CELLS, URINE SMALL AMOUNT /hpf
[2019-09-09 15:32] LABS: AMORPHOUS SEDIMENT, URINE MOD AMOUNT (NEGATIVE); BACTERIA, URINE SMALL AMOUNT; HYALINE CAST, URINE NONE SEEN /lpf (0-1); MUCUS, URINE SMALL AMOUNT (NEGATIVE)
[2019-09-09 15:33] LABS: RBC, URINE 0-1 /hpf (0-3)
[2019-09-09 15:56] LABS: ALT/SGPT 30 U/L (12-78); BILIRUBIN,TOTAL 0.8 MG/DL (0.2-1.0); BLOOD UREA NITROGEN 15 MG/DL (7-18); CALCIUM LEVEL 9.7 MG/DL (8.8-10.2); CARBON DIOXIDE LEVEL 30 MEQ/L (21-32); CHLORIDE LEVEL 98 MEQ/L (98-107); CREATININE FOR GFR 0.89 MG/DL (0.55-1.30); FREE T4 0.99 NG/DL (0.76-1.46); GLOMERULAR FILTRATION RATE > 60.0 (>45); GLUCOSE, FASTING 118 MG/DL (70-100); POTASSIUM SERUM 4.3 MEQ/L (3.5-5.1); SODIUM LEVEL 137 MEQ/L (136-145); TOTAL PROTEIN 7.2 GM/DL (6.4-8.2)
== END ==
LOC: M PLALAB 12:48
PROVIDERS: ATTEND Nurse Practitioner Family
DX: R39.15 Urgency of urination (principal); R53.83 Other fatigue

== ENCOUNTER → 2019-10-13 | Outpatient (CLI) | payer MEDICARE, MEDICAID ==
[~2019-10-13] MED LIST changes: -OMEP-172 PO; +OMEP1CAP73 PO
[2019-10-13 14:32] LABS: MALB URINE SIEMENS 22.1 MG/L
[2019-10-13 14:39] LABS: ALBUMIN 4.5 GM/DL (3.2-5.2); ALT/SGPT 30 U/L (12-78); BLOOD UREA NITROGEN 13 MG/DL (7-18); CALCIUM LEVEL 9.8 MG/DL (8.8-10.2); CARBON DIOXIDE LEVEL 31 MEQ/L (21-32); CHLORIDE LEVEL 93 MEQ/L (98-107); CHOLESTEROL LEVEL 236 MG/DL (<200); CREATININE FOR GFR 0.74 MG/DL (0.55-1.30); FREE T4 1.17 NG/DL (0.76-1.46); GLOMERULAR FILTRATION RATE > 60.0 (>45); GLUCOSE, FASTING 88 MG/DL (70-100); HDL CHOLESTEROL 100 MG/DL (>40); LDL CHOLESTEROL 127 MG/DL (<100); MAGNESIUM LEVEL 2.1 MG/DL (1.8-2.4); NON-HDL-C 136 MG/DL; POTASSIUM SERUM 4.4 MEQ/L (3.5-5.1); SODIUM LEVEL 133 MEQ/L (136-145); TOTAL 25(OH) VITAMIN D 53.7 NG/ML (30.0-100.0); TOTAL PROTEIN 7.4 GM/DL (6.4-8.2); TRIGLYCERIDES LEVEL 43 MG/DL (<150)
[2019-10-13 15:26] LABS: HEMOGLOBIN A1c 5.8 %
== END ==
LOC: M PLALAB 10:50
PROVIDERS: ATTEND Nurse Practitioner Family
DX: E03.9 Hypothyroidism, unspecified (principal); I10 Essential (primary) hypertension; E11.9 Type 2 diabetes mellitus without complications; E55.9 Vitamin D deficiency, unspecified; E83.40 Disorders of magnesium metabolism, unspecified; E78.2 Mixed hyperlipidemia; Z79.51 Long term (current) use of inhaled steroids; Z79.899 Other long term (current) drug therapy

== ENCOUNTER → 2019-10-21 | Outpatient (REF) | payer MEDICARE, MEDICAID ==
[2019-10-21 18:43] LABS: INFLUENZA A AMPLIFICATION NEGATIVE (NEGATIVE); INFLUENZA B AMPLIFICATION NEGATIVE (NEGATIVE)
== END ==
LOC: M LAB REF 17:57
PROVIDERS: ATTEND Physician Assistant
DX: J11.1 Influenza due to unidentified influenza virus with other respiratory manifestations (principal)

== ENCOUNTER → 2019-11-23 | Outpatient (REF) | payer MEDICARE, MEDICAID ==
[2019-11-23 18:38] LABS: APPEARANCE, URINE CLEAR (CLEAR); BACTERIA, URINE AUTO 1+ (NEGATIVE); BILIRUBIN, URINE AUTO NEGATIVE (NEGATIVE); BLOOD, URINE BLOOD NEGATIVE (NEGATIVE); COLOR, URINE STRAW (YELLOW); GLUCOSE, URINE (UA) AUTO NEGATIVE (NEGATIVE); KETONE, URINE AUTO NEGATIVE (NEGATIVE); LEUKOCYTE ESTERASE, URINE AUTO 2+ (NEGATIVE); NITRITE, URINE AUTO NEGATIVE (NEGATIVE); PROTEIN, URINE AUTO NEGATIVE (NEGATIVE); RBC, URINE AUTO 1 /HPF (0-3); SPECIFIC GRAVITY URINE AUTO 1.004 (1.002-1.035); SQUAMOUS EPITHELIAL CELL UR AU 1 /HPF (0-6); UROBILINOGEN, URINE AUTO 0.2 mg/dL (0.0-2.0); WBC, URINE AUTO 9 /HPF (0-3)
== END ==
LOC: M LAB REF 17:40
PROVIDERS: ATTEND Physician Assistant Medical
DX: N39.0 Urinary tract infection, site not specified (principal)

== ENCOUNTER → 2019-12-29 | Outpatient (REF) | payer MEDICARE, MEDICAID ==
[2019-12-29 18:04] LABS: APPEARANCE, URINE CLEAR (CLEAR); BACTERIA, URINE AUTO 1+ (NEGATIVE); BILIRUBIN, URINE AUTO NEGATIVE (NEGATIVE); BLOOD, URINE BLOOD NEGATIVE (NEGATIVE); COLOR, URINE STRAW (YELLOW); GLUCOSE, URINE (UA) AUTO NEGATIVE (NEGATIVE); KETONE, URINE AUTO NEGATIVE (NEGATIVE); LEUKOCYTE ESTERASE, URINE AUTO 3+ (NEGATIVE); NITRITE, URINE AUTO NEGATIVE (NEGATIVE); PROTEIN, URINE AUTO NEGATIVE (NEGATIVE); RBC, URINE AUTO 1 /HPF (0-3); SPECIFIC GRAVITY URINE AUTO 1.005 (1.002-1.035); SQUAMOUS EPITHELIAL CELL UR AU 0 /HPF (0-6); UROBILINOGEN, URINE AUTO 0.2 mg/dL (0.0-2.0); WBC, URINE AUTO 9 /HPF (0-3)
== END ==
LOC: M LAB REF 16:26
PROVIDERS: ATTEND Physician Assistant
DX: N39.0 Urinary tract infection, site not specified (principal)

== ENCOUNTER → 2020-01-14 | Outpatient (REF) | payer MEDICARE, MEDICAID ==
[2020-01-14 17:34] LABS: APPEARANCE, URINE CLEAR (CLEAR); BACTERIA, URINE AUTO 1+ (NEGATIVE); BILIRUBIN, URINE AUTO NEGATIVE (NEGATIVE); BLOOD, URINE BLOOD NEGATIVE (NEGATIVE); COLOR, URINE STRAW (YELLOW); GLUCOSE, URINE (UA) AUTO NEGATIVE (NEGATIVE); KETONE, URINE AUTO NEGATIVE (NEGATIVE); LEUKOCYTE ESTERASE, URINE AUTO 3+ (NEGATIVE); NITRITE, URINE AUTO NEGATIVE (NEGATIVE); PROTEIN, URINE AUTO NEGATIVE (NEGATIVE); RBC, URINE AUTO 3 /HPF (0-3); SPECIFIC GRAVITY URINE AUTO 1.005 (1.002-1.035); SQUAMOUS EPITHELIAL CELL UR AU 0 /HPF (0-6); UROBILINOGEN, URINE AUTO 0.2 mg/dL (0.0-2.0); WBC, URINE AUTO 13 /HPF (0-3)
== END ==
LOC: M LAB REF 16:14
PROVIDERS: ATTEND Physician Assistant
DX: N39.0 Urinary tract infection, site not specified (principal)

== ENCOUNTER → 2020-02-04 | Outpatient (CLI) | payer MEDICARE ==
[2020-02-04 17:55] LABS: BASO # 0.1 10^3/uL (0.0-0.2); BASO % 0.8 % (0.0-1.0); EOS # 0.1 10^3/uL (0.0-0.5); EOS % 1.3 % (0.0-3.0); HEMATOCRIT 35.7 % (36.0-47.0); HEMOGLOBIN 11.9 g/dl (12.0-15.5); LYMPH # 2.1 10^3/uL (1.5-5.0); LYMPH % 27.6 % (24.0-44.0); MEAN CORPUSCULAR HEMOGLOBIN 31.6 pg (27.0-33.0); MEAN CORPUSCULAR HGB CONC 33.3 g/dl (32.0-36.5); MEAN CORPUSCULAR VOLUME 94.7 fl (80.0-96.0); MONO # 0.6 10^3/uL (0.0-0.8); MONO % 7.3 % (0.0-5.0); NEUTROPHILS # 4.8 10^3/uL (1.5-8.5); NEUTROPHILS % 62.7 % (36.0-66.0); PLATELET COUNT, AUTOMATED 223 10^3/uL (150-450); RED BLOOD COUNT 3.77 10^6/uL (4.00-5.40); WHITE BLOOD COUNT 7.7 10^3/uL (4.0-10.0)
[2020-02-04 17:58] LABS: ALBUMIN 3.6 GM/DL (3.2-5.2); ALT/SGPT 26 U/L (12-78); BILIRUBIN,DIRECT 0.2 MG/DL (0.0-0.2); BILIRUBIN,TOTAL 1.1 MG/DL (0.2-1.0); BLOOD UREA NITROGEN 10 MG/DL (7-18); CARBON DIOXIDE LEVEL 32 MEQ/L (21-32); CHLORIDE LEVEL 96 MEQ/L (98-107); CHOLESTEROL LEVEL 176 MG/DL (<200); CHOLESTEROL RISK RATIO 2.046 (<5); CREATININE FOR GFR 0.64 MG/DL (0.55-1.30); GLOMERULAR FILTRATION RATE > 60.0 (>45); GLUCOSE, FASTING 95 MG/DL (70-100); HDL CHOLESTEROL 86 MG/DL (>40); LDL CHOLESTEROL 68 MG/DL (<100); NON-HDL-C 90 MG/DL; POTASSIUM SERUM 4.1 MEQ/L (3.5-5.1); PROLACTIN 35.8 NG/ML; SODIUM LEVEL 132 MEQ/L (136-145); TOTAL 25(OH) VITAMIN D 43.4 NG/ML (30.0-100.0); TOTAL PROTEIN 6.4 GM/DL (6.4-8.2); TRIGLYCERIDES LEVEL 109 MG/DL (<150); VITAMIN B12 LEVEL > 2000 PG/ML (247-911)
[2020-02-04 18:31] LABS: HEMOGLOBIN A1c 5.7 %
== END ==
LOC: M PLALAB 14:09
PROVIDERS: ATTEND Nurse Practitioner Psychiatric/Mental Health
DX: Z51.81 Encounter for therapeutic drug level monitoring (principal); Z13.6 Encounter for screening for cardiovascular disorders; Z13.1 Encounter for screening for diabetes mellitus; E55.9 Vitamin D deficiency, unspecified; Z79.899 Other long term (current) drug therapy

== ENCOUNTER → 2020-02-21 | Outpatient (REF) | payer MEDICARE, MEDICAID ==
[~2020-02-21] MED LIST changes: +AMLO1TAB24 PO; -AMLO5TAB6 PO; -CIPR0.3S AU; +CIPR0.3S6 AU; +CLEO150C PO; +PRAV20TA2; +RISP-8
[2020-02-21 18:49] LABS: APPEARANCE, URINE CLEAR (CLEAR); BACTERIA, URINE AUTO 1+ (NEGATIVE); BILIRUBIN, URINE AUTO NEGATIVE (NEGATIVE); BLOOD, URINE BLOOD NEGATIVE (NEGATIVE); COLOR, URINE YELLOW (YELLOW); GLUCOSE, URINE (UA) AUTO NEGATIVE (NEGATIVE); KETONE, URINE AUTO NEGATIVE (NEGATIVE); LEUKOCYTE ESTERASE, URINE AUTO 3+ (NEGATIVE); NITRITE, URINE AUTO NEGATIVE (NEGATIVE); PROTEIN, URINE AUTO NEGATIVE (NEGATIVE); RBC, URINE AUTO 1 /HPF (0-3); SPECIFIC GRAVITY URINE AUTO 1.005 (1.002-1.035); SQUAMOUS EPITHELIAL CELL UR AU 0 /HPF (0-6); TRANSITIONAL EPITHELIAL AUTO 1 /HPF; UROBILINOGEN, URINE AUTO 0.2 mg/dL (0.0-2.0); WBC, URINE AUTO 49 /HPF (0-3)
== END ==
LOC: M LAB REF 18:08
PROVIDERS: ATTEND Nurse Practitioner Family
DX: R30.0 Dysuria (principal); N39.0 Urinary tract infection, site not specified

== ENCOUNTER → 2020-02-29 | Outpatient (REF) | payer MEDICARE, MEDICAID ==
[~2020-02-29] MED LIST changes: -RISP-8; +RISP1TAB3
[2020-02-29 21:25] LABS: APPEARANCE, URINE CLEAR (CLEAR); BACTERIA, URINE AUTO NEGATIVE (NEGATIVE); BILIRUBIN, URINE AUTO NEGATIVE (NEGATIVE); BLOOD, URINE BLOOD NEGATIVE (NEGATIVE); COLOR, URINE STRAW (YELLOW); GLUCOSE, URINE (UA) AUTO NEGATIVE (NEGATIVE); KETONE, URINE AUTO NEGATIVE (NEGATIVE); LEUKOCYTE ESTERASE, URINE AUTO TRACE (NEGATIVE); NITRITE, URINE AUTO NEGATIVE (NEGATIVE); PROTEIN, URINE AUTO NEGATIVE (NEGATIVE); RBC, URINE AUTO 1 /HPF (0-3); SPECIFIC GRAVITY URINE AUTO 1.003 (1.002-1.035); SQUAMOUS EPITHELIAL CELL UR AU 0 /HPF (0-6); UROBILINOGEN, URINE AUTO 0.2 mg/dL (0.0-2.0); WBC, URINE AUTO 1 /HPF (0-3)
== END ==
LOC: M LAB REF 21:12
PROVIDERS: ATTEND Physician Assistant Medical
DX: N39.0 Urinary tract infection, site not specified (principal)

== ENCOUNTER 2020-03-21 12:48 | Emergency (ER) | payer MEDICARE, MEDICAID ==
[~2020-03-21] VITALS: Ht 170.2 cm; Wt 54.9 kg
[~2020-03-21 12:48] MED LIST changes: -CLEO150C PO; -PRAV20TA2; -RISP1TAB3
[2020-03-21] MEDS ORDERED: PRAV20TA2 (13:15)
[2020-03-21] MEDS ORDERED: RISP1TAB3 (13:15)
[2020-03-21 14:17] LABS: BASO # 0.1 10^3/uL (0.0-0.2); EOS % 0.7 % (0.0-3.0); HEMATOCRIT 36.1 % (36.0-47.0); HEMOGLOBIN 12.1 g/dl (12.0-15.5); LYMPH # 1.6 10^3/uL (1.5-5.0); LYMPH % 28.3 % (24.0-44.0); MEAN CORPUSCULAR HEMOGLOBIN 31.5 pg (27.0-33.0); MEAN CORPUSCULAR HGB CONC 33.5 g/dl (32.0-36.5); MONO # 0.5 10^3/uL (0.0-0.8); MONO % 9.4 % (0.0-5.0); NEUTROPHILS # 3.5 10^3/uL (1.5-8.5); NEUTROPHILS % 60.3 % (36.0-66.0); PLATELET COUNT, AUTOMATED 217 10^3/uL (150-450); RED BLOOD COUNT 3.84 10^6/uL (4.00-5.40); WHITE BLOOD COUNT 5.8 10^3/uL (4.0-10.0)
[2020-03-21 14:43] LABS: BLOOD UREA NITROGEN 16 MG/DL (7-18); CALCIUM LEVEL 9.1 MG/DL (8.8-10.2); CARBON DIOXIDE LEVEL 31 MEQ/L (21-32); CHLORIDE LEVEL 97 MEQ/L (98-107); CREATININE FOR GFR 0.77 MG/DL (0.55-1.30); GLOMERULAR FILTRATION RATE > 60.0 (>45); GLUCOSE, FASTING 105 MG/DL (70-100); POTASSIUM SERUM 3.9 MEQ/L (3.5-5.1); SODIUM LEVEL 133 MEQ/L (136-145)
--- NOTE | 2020-03-21 14:54 | REP ---
Left lower extremity Duplex Doppler venous ultrasound: Real time compression and duplex Doppler interrogation of the left lower extremity deep venous system is performed. The left common femoral, superficial femoral and popliteal veins are fully compressible with transducer pressure and demonstrate normal spontaneous and phasic flow, without evidence of deep venous thrombosis. Impression: No evidence of deep venous thrombosis of the left lower extremity femoral popliteal venous system. Electronically Signed by Conrado Souza MD 03/21/2020 02:45 P
[2020-03-21] MEDS ORDERED: CLEO150C PO (16:13)
[2020-03-21 16:25] VITALS: BP 138/63
--- NOTE | 2020-03-21 18:00 | REP ---
LEFT ANKLE, FOUR VIEWS: Four views of the left ankle are performed. There is no acute fracture or dislocation. There is mild inferior calcaneal spurring. Ankle mortise is anatomic. There is mild diffuse soft tissue swelling. IMPRESSION: No acute fracture or dislocation. Electronically Signed by Conrado Souza MD 03/22/2020 04:48 P
--- NOTE | 2020-03-21 22:55 | REP ---
LEFT FOOT, FOUR VIEWS: There is no evidence of an acute fracture, dislocation, or intrinsic bone disease. There is mild inferior calcaneal spurring. IMPRESSION: No fracture or dislocation. Electronically Signed by Conrado Souza MD 03/22/2020 04:49 P
== END 2020-03-21 16:29 | disposition home or self-care (01) ==
LOC: M ED 12:48
DX: S93.402A Sprain of unspecified ligament of left ankle, initial encounter (principal); W22.8XXA Striking against or struck by other objects, initial encounter; Y92.9 Unspecified place or not applicable; Y93.9 Activity, unspecified; Y99.9 Unspecified external cause status; L03.116 Cellulitis of left lower limb; E03.9 Hypothyroidism, unspecified; E78.5 Hyperlipidemia, unspecified; J44.9 Chronic obstructive pulmonary disease, unspecified; Z79.899 Other long term (current) drug therapy; Z87.891 Personal history of nicotine dependence; Z88.0 Allergy status to penicillin; Z88.1 Allergy status to other antibiotic agents; Z91.018 Allergy to other foods

== ENCOUNTER → 2020-03-22 | Outpatient (REF) | payer MEDICARE, MEDICAID ==
[~2020-03-22] MED LIST changes: +CLEO150C PO; +PRAV20TA2; +RISP1TAB3
[2020-03-22 18:39] LABS: APPEARANCE, URINE CLEAR (CLEAR); BACTERIA, URINE AUTO NEGATIVE (NEGATIVE); BILIRUBIN, URINE AUTO NEGATIVE (NEGATIVE); BLOOD, URINE BLOOD NEGATIVE (NEGATIVE); COLOR, URINE YELLOW (YELLOW); GLUCOSE, URINE (UA) AUTO NEGATIVE (NEGATIVE); KETONE, URINE AUTO NEGATIVE (NEGATIVE); LEUKOCYTE ESTERASE, URINE AUTO NEGATIVE (NEGATIVE); NITRITE, URINE AUTO NEGATIVE (NEGATIVE); PROTEIN, URINE AUTO NEGATIVE (NEGATIVE); RBC, URINE AUTO 2 /HPF (0-3); SPECIFIC GRAVITY URINE AUTO 1.011 (1.002-1.035); SQUAMOUS EPITHELIAL CELL UR AU 0 /HPF (0-6); UROBILINOGEN, URINE AUTO 0.2 mg/dL (0.0-2.0); WBC, URINE AUTO 0 /HPF (0-3)
== END ==
LOC: M SMT 16:54
PROVIDERS: ATTEND Nurse Practitioner Family
DX: R35.0 Frequency of micturition (principal)
CPT/HCPCS: 51702; 81001; 87086; G0463

== ENCOUNTER → 2020-05-22 | Outpatient (REF) | payer MEDICARE, MEDICAID | LOC: EEVIPCON 17:28 → M LAB REF 17:28 | PROVIDERS: ATTEND Physician Assistant | DX: N89.8 Other specified noninflammatory disorders of vagina (principal) ==

== ENCOUNTER → 2020-05-22 | Outpatient (REF) | payer MEDICARE, MEDICAID ==
[2020-05-22 19:27] LABS: CREATININE, URINE < 13.0 MG/DL
== END ==
LOC: M LAB REF 17:27
PROVIDERS: ATTEND Physician Assistant
DX: E11.9 Type 2 diabetes mellitus without complications (principal); N89.8 Other specified noninflammatory disorders of vagina

== ENCOUNTER → 2020-07-07 | Outpatient (REF) | payer MEDICARE, MEDICAID ==
[2020-07-07 13:06] LABS: APPEARANCE, URINE CLEAR (CLEAR); BACTERIA, URINE AUTO NEGATIVE (NEGATIVE); BILIRUBIN, URINE AUTO NEGATIVE (NEGATIVE); BLOOD, URINE BLOOD NEGATIVE (NEGATIVE); COLOR, URINE STRAW (YELLOW); GLUCOSE, URINE (UA) AUTO NEGATIVE (NEGATIVE); KETONE, URINE AUTO NEGATIVE (NEGATIVE); LEUKOCYTE ESTERASE, URINE AUTO TRACE (NEGATIVE); MUCUS, URINE SMALL (NEGATIVE); NITRITE, URINE AUTO NEGATIVE (NEGATIVE); PROTEIN, URINE AUTO NEGATIVE (NEGATIVE); RBC, URINE AUTO 2 /HPF (0-3); SPECIFIC GRAVITY URINE AUTO 1.005 (1.002-1.035); SQUAMOUS EPITHELIAL CELL UR AU 0 /HPF (0-6); UROBILINOGEN, URINE AUTO 0.2 mg/dL (0.0-2.0); WBC, URINE AUTO 2 /HPF (0-3)
== END ==
LOC: M LAB REF 11:49
PROVIDERS: ATTEND Physician Assistant
DX: R30.0 Dysuria (principal); N89.8 Other specified noninflammatory disorders of vagina

== ENCOUNTER → 2020-07-21 | Outpatient (REF) | payer MEDICARE, MEDICAID ==
[2020-07-21 16:38] LABS: BASO # 0.1 10^3/uL (0.0-0.2); EOS % 0.1 % (0.0-3.0); HEMATOCRIT 35.5 % (36.0-47.0); HEMOGLOBIN 11.4 g/dl (12.0-15.5); LYMPH # 1.4 10^3/uL (1.5-5.0); LYMPH % 21.1 % (24.0-44.0); MEAN CORPUSCULAR HEMOGLOBIN 30.6 pg (27.0-33.0); MEAN CORPUSCULAR HGB CONC 32.1 g/dl (32.0-36.5); MEAN CORPUSCULAR VOLUME 95.2 fl (80.0-96.0); MONO # 0.5 10^3/uL (0.0-0.8); MONO % 7.6 % (0.0-5.0); NEUTROPHILS # 4.7 10^3/uL (1.5-8.5); NEUTROPHILS % 69.9 % (36.0-66.0); PLATELET COUNT, AUTOMATED 262 10^3/uL (150-450); RED BLOOD COUNT 3.73 10^6/uL (4.00-5.40); WHITE BLOOD COUNT 6.7 10^3/uL (4.0-10.0)
[2020-07-21 17:19] LABS: ALBUMIN 3.9 GM/DL (3.2-5.2); ALT/SGPT 24 U/L (12-78); BILIRUBIN,TOTAL 0.8 MG/DL (0.2-1.0); BLOOD UREA NITROGEN 11 MG/DL (7-18); CALCIUM LEVEL 9.2 MG/DL (8.8-10.2); CARBON DIOXIDE LEVEL 30 MEQ/L (21-32); CHLORIDE LEVEL 94 MEQ/L (98-107); CHOLESTEROL LEVEL 193 MG/DL (<200); CHOLESTEROL RISK RATIO 1.873 (<5); FREE T4 1.12 NG/DL (0.76-1.46); GLOMERULAR FILTRATION RATE > 60.0 (>45); GLUCOSE, FASTING 66 MG/DL (70-100); HDL CHOLESTEROL 103 MG/DL (>40); LDL CHOLESTEROL 78 MG/DL (<100); NON-HDL-C 90 MG/DL; POTASSIUM SERUM 4.1 MEQ/L (3.5-5.1); SODIUM LEVEL 132 MEQ/L (136-145); TOTAL PROTEIN 6.7 GM/DL (6.4-8.2); TRIGLYCERIDES LEVEL 62 MG/DL (<150)
[2020-07-21 17:21] LABS: TOTAL 25(OH) VITAMIN D 48.9 NG/ML (30.0-100.0)
[2020-07-21 17:35] LABS: CREATININE, URINE < 13.0 MG/DL; MALB URINE SIEMENS 62.8 MG/L
== END ==
LOC: M LAB REF 15:58
PROVIDERS: ATTEND Physician Assistant
DX: E11.69 Type 2 diabetes mellitus with other specified complication (principal)

== ENCOUNTER 2022-03-11 10:54 | Emergency (ER) | payer MEDICARE, MEDICAID ==
[~2022-03-11] VITALS: Ht 170.2 cm; Wt 68.2 kg
[~2022-03-11 10:54] MED LIST changes: +ALBU2.5V10 INH; -ALBU83IN INH; -ALDA25TA2; +ALDA25TA2 PO; +DOXY-443 PO; -DOXY100C37 PO; +LOSA100T45 PO; -LOSA100T50 PO; +RISP-8; -RISP1TAB3
[2022-03-11 13:20] LABS: BASO # 0.1 10^3/uL (0.0-0.2); BASO % 0.4 % (0.0-1.0); EOS % 0.1 % (0.0-3.0); HEMATOCRIT 39.1 % (36.0-47.0); HEMOGLOBIN 13.3 g/dl (12.0-15.5); LYMPH # 0.9 10^3/uL (1.5-5.0); LYMPH % 5.2 % (24.0-44.0); MEAN CORPUSCULAR HEMOGLOBIN 29.8 pg (27.0-33.0); MEAN CORPUSCULAR VOLUME 87.7 fl (80.0-96.0); MONO # 0.9 10^3/uL (0.0-0.8); MONO % 5.3 % (2.0-8.0); NEUTROPHILS # 14.5 10^3/uL (1.5-8.5); NEUTROPHILS % 88.6 % (36.0-66.0); PLATELET COUNT, AUTOMATED 351 10^3/uL (150-450); RED BLOOD COUNT 4.46 10^6/uL (4.00-5.40); WHITE BLOOD COUNT 16.4 10^3/uL (4.0-10.0)
[2022-03-11] MEDS ORDERED: ISOVUE-370 76% 100ML VIAL As Ordered ONE (13:23)
[2022-03-11] MEDS ORDERED: NS 1,000 ML IV ONE (13:35)
[2022-03-11 13:51] LABS: ALBUMIN 3.5 GM/DL (3.2-5.2); BILIRUBIN,DIRECT 0.3 MG/DL (0.0-0.2); BILIRUBIN,TOTAL 1.1 MG/DL (0.2-1.0); TOTAL PROTEIN 6.7 GM/DL (6.4-8.2)
[2022-03-11 13:52] LABS: RSV AMPLIFICATION NEGATIVE (NEGATIVE)
[2022-03-11] MEDS ORDERED: FLEET OIL RETENTION ENEMA PR PRN (14:05)
[2022-03-11] MEDS ORDERED: LACTULOSE 20 GM/30 ML SYRUP UD PO ONE (14:05)
[2022-03-11] MEDS ORDERED: DOCUSATE SODIUM 100MG CAPSULE PO ONE (14:30)
[2022-03-11] MEDS ORDERED: D31000CA4 PO (15:28)
[2022-03-11] MEDS ORDERED: K 10100T PO (15:29)
[2022-03-11] MEDS ORDERED: OMEGCAP4 PO (15:29)
[2022-03-11] MEDS ORDERED: A-10CAP2 PO (15:29)
[2022-03-11] MEDS ORDERED: HOME MED LIST COMPLETE! XX SCH (15:30)
[2022-03-11 16:33] VITALS: BP 142/87
[2022-03-11] MEDS ORDERED: MAGNESIUM CITRATE 300 ML BTL PO ONE (16:55)
[2022-03-11] MEDS ORDERED: DULC10SU2 PR (17:24)
[2022-03-11] MEDS ORDERED: MIRA3350 PO (17:24)
[2022-03-11] MEDS ORDERED: COLA100C5 PO (17:24)
== END 2022-03-11 18:05 | disposition home or self-care (01) ==
LOC: EDBD 10:54 → M ED 10:54
DX: K59.00 Constipation, unspecified (principal); E11.9 Type 2 diabetes mellitus without complications; I10 Essential (primary) hypertension; J44.9 Chronic obstructive pulmonary disease, unspecified; J45.909 Unspecified asthma, uncomplicated; E05.90 Thyrotoxicosis, unspecified without thyrotoxic crisis or storm; E78.5 Hyperlipidemia, unspecified; K21.9 Gastro-esophageal reflux disease without esophagitis; Z87.09 Personal history of other diseases of the respiratory system; Z87.448 Personal history of other diseases of urinary system; Z88.0 Allergy status to penicillin; Z88.8 Allergy status to other drugs, medicaments and biological substances; Z91.018 Allergy to other foods; Z79.899 Other long term (current) drug therapy
CPT/HCPCS: 74018; 74177; 80047; 80076; 83605; 83690; 84295; 85025; 87631; 96360; 96361; 99284; Q9967

== ENCOUNTER 2022-08-02 21:37 | Inpatient (IN) | payer MEDICARE, MEDICAID ==
[~2022-08-02] VITALS: Ht 170.2 cm; Wt 49.0 kg
[~2022-08-02 21:37] MED LIST changes: +A-10CAP2 PO; +COLA100C5 PO; +D31000CA4 PO; -DOXY-350 PO; +DOXY-444 PO; +DULC10SU2 PR; +K 10100T PO; +OMEGCAP4 PO
[2022-08-03 00:25] LABS: BASO # 0.1 10^3/uL (0.0-0.2); EOS # 0.2 10^3/uL (0.0-0.5); EOS % 2.3 % (0.0-3.0); HEMATOCRIT 33.4 % (36.0-47.0); HEMOGLOBIN 10.9 g/dl (12.0-15.5); LYMPH # 2.4 10^3/uL (1.5-5.0); LYMPH % 28.1 % (24.0-44.0); MEAN CORPUSCULAR HEMOGLOBIN 29.7 pg (27.0-33.0); MEAN CORPUSCULAR HGB CONC 32.6 g/dl (32.0-36.5); MONO % 11.4 % (2.0-8.0); NEUTROPHILS # 4.8 10^3/uL (1.5-8.5); NEUTROPHILS % 56.4 % (36.0-66.0); PLATELET COUNT, AUTOMATED 312 10^3/uL (150-450); RED BLOOD COUNT 3.67 10^6/uL (4.00-5.40); WHITE BLOOD COUNT 8.4 10^3/uL (4.0-10.0)
[2022-08-03 00:43] LABS: BLOOD UREA NITROGEN 34 MG/DL (9-23); CALCIUM LEVEL 8.8 MG/DL (8.3-10.6); CARBON DIOXIDE LEVEL 31 MMOL/L (20-31); CHLORIDE LEVEL 94 MMOL/L (98-107); CREATININE FOR GFR 0.47 MG/DL (0.55-1.30); GLOMERULAR FILTRATION RATE > 60.0 (>45); GLUCOSE, FASTING 132 MG/DL (74-106); POTASSIUM SERUM 4.3 MMOL/L (3.5-5.1); SODIUM LEVEL 134 MMOL/L (136-145)
[2022-08-03 00:44] LABS: RSV AMPLIFICATION NEGATIVE (NEGATIVE)
[2022-08-03 00:56] LABS: ERYTHROCYTE SEDIMENTATION RATE 17 mm/hr (0-30)
[2022-08-03] MEDS ORDERED: VANCOMYCIN HCL 1,000 MG in IV FLUID PLACE HOLDER 1 EA IV ONE (01:25)
[2022-08-03] MEDS ORDERED: NITROFURANTOIN (MACROBID) 100 MG CAP PO ONE (01:30)
[2022-08-03] MEDS ORDERED: VANCOMYCIN HCL 750 MG, VIAL MATE ADAPTER 1 EACH in D5W 250 ML IV ONE (01:30)
[2022-08-03] MEDS ORDERED: HYDR12.55 PO (01:35)
[2022-08-03] MEDS ORDERED: HOME MED LIST COMPLETE! XX SCH (01:40)
[2022-08-03] MEDS ORDERED: MOM 30ML SUSPENSION UDC PO PRN (02:25)
[2022-08-03] MEDS ORDERED: ACETAMINOPHEN TAB 650MG DOSE (2X325MG) PO PRN (02:25)
[2022-08-03] MEDS ORDERED: VANCOMYCIN HCL 500 MG in D5W MINI-BAG PLUS 100 ML IV ONE (02:30)
[2022-08-03] MEDS: traMADol 50 MG TAB PO PRN ×3 (02:43→21:29)
[2022-08-03 04:03] VITALS: BP 125/77
[2022-08-03] MEDS: ENOXAPARIN 80MG/0.8ML SYRINGE (J1650 PER 10MG) SC SCH ×2 (05:29→06:01)
[2022-08-03 07:01] LABS: HEMATOCRIT 29.3 % (36.0-47.0); HEMOGLOBIN 9.6 g/dl (12.0-15.5); MEAN CORPUSCULAR HEMOGLOBIN 29.4 pg (27.0-33.0); MEAN CORPUSCULAR HGB CONC 32.8 g/dl (32.0-36.5); MEAN CORPUSCULAR VOLUME 89.9 fl (80.0-96.0); PLATELET COUNT, AUTOMATED 279 10^3/uL (150-450); RED BLOOD COUNT 3.26 10^6/uL (4.00-5.40); WHITE BLOOD COUNT 7.3 10^3/uL (4.0-10.0)
[2022-08-03 07:15] LABS: INR 1.03; PROTHROMBIN TIME 13.7 SECONDS (12.5-14.5)
[2022-08-03 07:39] LABS: BLOOD UREA NITROGEN 24 MG/DL (9-23); CALCIUM LEVEL 8.3 MG/DL (8.3-10.6); CARBON DIOXIDE LEVEL 29 MMOL/L (20-31); CHLORIDE LEVEL 95 MMOL/L (98-107); CREATININE FOR GFR 0.41 MG/DL (0.55-1.30); FREE T4 1.14 NG/DL (0.89-1.76); GLOMERULAR FILTRATION RATE > 60.0 (>45); GLUCOSE, FASTING 119 MG/DL (74-106); MAGNESIUM LEVEL 1.3 MG/DL (1.8-2.4); SODIUM LEVEL 132 MMOL/L (136-145); THYROID STIMULATING HORMONE 5.181 uIU/ML (0.55-4.78)
[2022-08-03] MEDS: DOCUSATE SODIUM 100MG CAPSULE PO SCH ×2 (07:48→21:00)
[2022-08-03] MEDS: risperiDONE 1 MG TAB PO SCH ×2 (12:25→21:29)
[2022-08-03] MEDS: QUEtiapine FUMARATE 50MG TAB PO SCH (12:25)
[2022-08-03 14:00] VITALS: BP 121/75
[2022-08-03] MEDS: NYSTATIN 100,000 UNITS/GM TOPICAL PWD 15GM TOP SCH (21:00)
[2022-08-03] MEDS ORDERED: ENOXAPARIN 60MG/0.6ML SYRINGE (J1650 PER 10MG) SC SCH (21:00)
[2022-08-03] MEDS: MAGNESIUM OXIDE 400MG TAB (MAG-OX) PO SCH (21:29)
[2022-08-03] MEDS: QUEtiapine FUMARATE 25 MG TAB PO PRN (21:30)
[2022-08-03 21:57] VITALS: BP 152/85
[2022-08-04 06:42] LABS: BASO # 0.1 10^3/uL (0.0-0.2); BASO % 1.1 % (0.0-1.0); EOS # 0.2 10^3/uL (0.0-0.5); EOS % 2.3 % (0.0-3.0); HEMATOCRIT 35.1 % (36.0-47.0); HEMOGLOBIN 11.2 g/dl (12.0-15.5); LYMPH # 1.9 10^3/uL (1.5-5.0); LYMPH % 26.9 % (24.0-44.0); MEAN CORPUSCULAR HGB CONC 31.9 g/dl (32.0-36.5); MEAN CORPUSCULAR VOLUME 90.9 fl (80.0-96.0); MONO # 0.7 10^3/uL (0.0-0.8); MONO % 9.3 % (2.0-8.0); NEUTROPHILS # 4.3 10^3/uL (1.5-8.5); PLATELET COUNT, AUTOMATED 293 10^3/uL (150-450); RED BLOOD COUNT 3.86 10^6/uL (4.00-5.40); WHITE BLOOD COUNT 7.1 10^3/uL (4.0-10.0)
[2022-08-04] MEDS: risperiDONE 1 MG TAB PO PRN (06:51)
[2022-08-04 07:09] LABS: BLOOD UREA NITROGEN 15 MG/DL (9-23); CALCIUM LEVEL 9.1 MG/DL (8.3-10.6); CARBON DIOXIDE LEVEL 32 MMOL/L (20-31); CHLORIDE LEVEL 96 MMOL/L (98-107); CREATININE FOR GFR 0.44 MG/DL (0.55-1.30); GLOMERULAR FILTRATION RATE > 60.0 (>45); GLUCOSE, FASTING 92 MG/DL (74-106); MAGNESIUM LEVEL 1.6 MG/DL (1.8-2.4); POTASSIUM SERUM 4.3 MMOL/L (3.5-5.1); SODIUM LEVEL 136 MMOL/L (136-145)
[2022-08-04] MEDS: risperiDONE 1 MG TAB PO SCH ×2 (09:00→20:49)
[2022-08-04] MEDS: MAG SULF 1GM/100ML (MAG RUN) 1 GM in IV 1 EA IV SCH ×2 (09:00→10:00)
[2022-08-04] MEDS: DOCUSATE SODIUM 100MG CAPSULE PO SCH ×2 (09:00→20:41)
[2022-08-04] MEDS: NYSTATIN 100,000 UNITS/GM TOPICAL PWD 15GM TOP SCH ×2 (09:00→20:42)
[2022-08-04] MEDS: MAGNESIUM OXIDE 400MG TAB (MAG-OX) PO SCH ×3 (10:47→20:49)
[2022-08-04] MEDS: APIXABAN 5 MG TAB (ELIQUIS) PO SCH ×2 (10:47→20:48)
[2022-08-04] MEDS: QUEtiapine FUMARATE 50MG TAB PO SCH (10:47)
[2022-08-04] MEDS: traMADol 50 MG TAB PO PRN (20:49)
[2022-08-05] MEDS: APIXABAN 5 MG TAB (ELIQUIS) PO SCH ×2 (09:10→19:43)
[2022-08-05] MEDS: DOCUSATE SODIUM 100MG CAPSULE PO SCH ×2 (09:10→19:43)
[2022-08-05] MEDS: MAGNESIUM OXIDE 400MG TAB (MAG-OX) PO SCH ×3 (09:10→19:44)
[2022-08-05] MEDS: NYSTATIN 100,000 UNITS/GM TOPICAL PWD 15GM TOP SCH ×2 (09:11→19:40)
[2022-08-05] MEDS: QUEtiapine FUMARATE 50MG TAB PO SCH (09:11)
[2022-08-05] MEDS: risperiDONE 1 MG TAB PO SCH (09:11)
[2022-08-05] MEDS ORDERED: TRAM50TA2 PO (09:14)
[2022-08-05] MEDS ORDERED: RISP-8 PO ×2 (09:14)
[2022-08-05] MEDS ORDERED: ELIQ5TAB PO (09:14)
[2022-08-05] MEDS ORDERED: QUET1TAB17 PO (09:14)
[2022-08-05] MEDS ORDERED: QUET50TA4 PO (09:14)
[2022-08-05] MEDS ORDERED: ACET1TAB55 PO (09:14)
[2022-08-05] MEDS: traMADol 50 MG TAB PO PRN (09:19)
[2022-08-05 10:18] LABS: BASO # 0.1 10^3/uL (0.0-0.2); EOS # 0.1 10^3/uL (0.0-0.5); EOS % 1.9 % (0.0-3.0); HEMATOCRIT 32.8 % (36.0-47.0); HEMOGLOBIN 10.6 g/dl (12.0-15.5); LYMPH # 1.3 10^3/uL (1.5-5.0); LYMPH % 20.7 % (24.0-44.0); MEAN CORPUSCULAR HGB CONC 32.3 g/dl (32.0-36.5); MEAN CORPUSCULAR VOLUME 89.9 fl (80.0-96.0); MONO # 0.7 10^3/uL (0.0-0.8); MONO % 11.5 % (2.0-8.0); NEUTROPHILS % 64.6 % (36.0-66.0); PLATELET COUNT, AUTOMATED 284 10^3/uL (150-450); RED BLOOD COUNT 3.65 10^6/uL (4.00-5.40); WHITE BLOOD COUNT 6.2 10^3/uL (4.0-10.0)
[2022-08-05 11:06] LABS: CARBON DIOXIDE LEVEL 32 MMOL/L (20-31); CHLORIDE LEVEL 96 MMOL/L (98-107); SODIUM LEVEL 135 MMOL/L (136-145)
[2022-08-05 11:11] LABS: BLOOD UREA NITROGEN 19 MG/DL (9-23)
[2022-08-05 11:12] LABS: CALCIUM LEVEL 8.9 MG/DL (8.3-10.6); GLUCOSE, FASTING 117 MG/DL (74-106)
[2022-08-05 11:13] LABS: MAGNESIUM LEVEL 1.6 MG/DL (1.8-2.4)
[2022-08-05 11:14] LABS: CREATININE FOR GFR 0.42 MG/DL (0.55-1.30); GLOMERULAR FILTRATION RATE > 60.0 (>45)
[2022-08-05] MEDS ORDERED: PILL CUTTER 1 EACH XX PRN (17:15)
[2022-08-05] MEDS: LIDOCAINE 5% (LIDODERM) PATCH TD SCH (19:39)
[2022-08-05] MEDS: QUEtiapine FUMARATE 25 MG TAB PO PRN (19:43)
[2022-08-05] MEDS: DIVALPROEX 500 MG TAB PO SCH (19:43)
[2022-08-05] MEDS: risperiDONE 0.5 MG TAB PO SCH (19:44)
[2022-08-05] MEDS ORDERED: traMADol 50 MG TAB PO PRN (20:25)
[2022-08-05] MEDS ORDERED: GABAPENTIN 300 MG CAP PO SCH (21:00)
[2022-08-06 06:00] VITALS: BP 161/100
[2022-08-06] MEDS: MAGNESIUM OXIDE 400MG TAB (MAG-OX) PO SCH ×3 (08:27→22:09)
[2022-08-06] MEDS: QUEtiapine FUMARATE 50MG TAB PO SCH (08:27)
[2022-08-06] MEDS: APIXABAN 5 MG TAB (ELIQUIS) PO SCH ×2 (08:27→21:00)
[2022-08-06] MEDS: DOCUSATE SODIUM 100MG CAPSULE PO SCH ×2 (08:27→21:00)
[2022-08-06] MEDS: risperiDONE 0.5 MG TAB PO SCH ×2 (08:27→22:10)
[2022-08-06] MEDS: MOM 30ML SUSPENSION UDC PO SCH (08:30)
[2022-08-06] MEDS: NYSTATIN 100,000 UNITS/GM TOPICAL PWD 15GM TOP SCH ×2 (08:37→21:00)
[2022-08-06] MEDS: DIVALPROEX 500 MG TAB PO SCH ×2 (08:37→21:00)
[2022-08-06 09:34] LABS: BASO # 0.1 10^3/uL (0.0-0.2); BASO % 0.9 % (0.0-1.0); EOS # 0.1 10^3/uL (0.0-0.5); EOS % 1.1 % (0.0-3.0); HEMATOCRIT 33.1 % (36.0-47.0); HEMOGLOBIN 10.8 g/dl (12.0-15.5); LYMPH # 1.2 10^3/uL (1.5-5.0); LYMPH % 12.7 % (24.0-44.0); MEAN CORPUSCULAR HEMOGLOBIN 29.6 pg (27.0-33.0); MEAN CORPUSCULAR HGB CONC 32.6 g/dl (32.0-36.5); MEAN CORPUSCULAR VOLUME 90.7 fl (80.0-96.0); MONO # 0.8 10^3/uL (0.0-0.8); MONO % 9.1 % (2.0-8.0); NEUTROPHILS % 75.4 % (36.0-66.0); PLATELET COUNT, AUTOMATED 287 10^3/uL (150-450); RED BLOOD COUNT 3.65 10^6/uL (4.00-5.40); WHITE BLOOD COUNT 9.3 10^3/uL (4.0-10.0)
[2022-08-06 10:54] LABS: CHLORIDE LEVEL 94 MMOL/L (98-107); POTASSIUM SERUM 4.4 MMOL/L (3.5-5.1); SODIUM LEVEL 131 MMOL/L (136-145)
[2022-08-06 10:55] LABS: CARBON DIOXIDE LEVEL 27 MMOL/L (20-31)
[2022-08-06 11:00] LABS: BLOOD UREA NITROGEN 25 MG/DL (9-23); CALCIUM LEVEL 8.6 MG/DL (8.3-10.6); GLUCOSE, FASTING 176 MG/DL (74-106)
[2022-08-06 11:01] LABS: MAGNESIUM LEVEL 1.5 MG/DL (1.8-2.4)
[2022-08-06 11:02] LABS: CREATININE FOR GFR 0.38 MG/DL (0.55-1.30); GLOMERULAR FILTRATION RATE > 60.0 (>45)
[2022-08-06 11:03] LABS: IRON (FE) 20 UG/DL (50-170); TOTAL IRON BINDING CAPACITY 286 UG/DL (250-425)
[2022-08-06 11:04] LABS: FERRITIN 100.2 NG/ML (7.3-270.7); VITAMIN B12 LEVEL 471 PG/ML (211-911)
[2022-08-06] MEDS: GABAPENTIN 300 MG CAP PO SCH ×2 (12:17→21:00)
[2022-08-06] MEDS: KETOROLAC TROMETHAMINE 10 MG TAB PO SCH ×2 (12:17→21:00)
[2022-08-06] MEDS: ACETAMINOPHEN 500 MG TAB PO SCH ×2 (12:17→22:10)
[2022-08-06 14:00] VITALS: BP 118/78
[2022-08-06 19:35] VITALS: BP 124/83
[2022-08-06] MEDS: LIDOCAINE 5% (LIDODERM) PATCH TD SCH (21:00)
[2022-08-07 07:44] VITALS: BP 157/112
[2022-08-07 08:00] VITALS: BP 140/80
[2022-08-07] MEDS: DIVALPROEX 500 MG TAB PO SCH ×2 (09:00→21:00)
[2022-08-07] MEDS: NYSTATIN 100,000 UNITS/GM TOPICAL PWD 15GM TOP SCH ×2 (09:00→21:00)
[2022-08-07] MEDS: KETOROLAC TROMETHAMINE 10 MG TAB PO SCH ×2 (09:42→21:00)
[2022-08-07] MEDS: APIXABAN 5 MG TAB (ELIQUIS) PO SCH ×2 (09:43→21:00)
[2022-08-07] MEDS: GABAPENTIN 300 MG CAP PO SCH ×2 (09:44→21:00)
[2022-08-07] MEDS: DOCUSATE SODIUM 100MG CAPSULE PO SCH ×2 (09:45→21:00)
[2022-08-07] MEDS: ACETAMINOPHEN 500 MG TAB PO SCH ×2 (09:46→21:00)
[2022-08-07] MEDS: MOM 30ML SUSPENSION UDC PO SCH (09:47)
[2022-08-07] MEDS: MAGNESIUM OXIDE 400MG TAB (MAG-OX) PO SCH ×3 (09:47→21:00)
[2022-08-07] MEDS: QUEtiapine FUMARATE 50MG TAB PO SCH (09:51)
[2022-08-07] MEDS: risperiDONE 1 MG TAB PO PRN (09:51)
[2022-08-07] MEDS: risperiDONE 0.5 MG TAB PO SCH ×3 (09:57→21:34)
[2022-08-07 12:49] LABS: BASO # 0.1 10^3/uL (0.0-0.2); BASO % 0.7 % (0.0-1.0); EOS # 0.1 10^3/uL (0.0-0.5); EOS % 0.9 % (0.0-3.0); HEMATOCRIT 31.2 % (36.0-47.0); HEMOGLOBIN 10.3 g/dl (12.0-15.5); LYMPH # 1.4 10^3/uL (1.5-5.0); LYMPH % 19.8 % (24.0-44.0); MEAN CORPUSCULAR HEMOGLOBIN 29.7 pg (27.0-33.0); MEAN CORPUSCULAR VOLUME 89.9 fl (80.0-96.0); MONO # 0.9 10^3/uL (0.0-0.8); MONO % 13.1 % (2.0-8.0); NEUTROPHILS # 4.5 10^3/uL (1.5-8.5); NEUTROPHILS % 64.9 % (36.0-66.0); PLATELET COUNT, AUTOMATED 290 10^3/uL (150-450); RED BLOOD COUNT 3.47 10^6/uL (4.00-5.40); WHITE BLOOD COUNT 6.9 10^3/uL (4.0-10.0)
[2022-08-07 13:40] LABS: MAGNESIUM LEVEL 1.9 MG/DL (1.8-2.4)
[2022-08-07 13:42] LABS: BLOOD UREA NITROGEN 29 MG/DL (9-23); CALCIUM LEVEL 8.8 MG/DL (8.3-10.6); CARBON DIOXIDE LEVEL 31 MMOL/L (20-31); CHLORIDE LEVEL 97 MMOL/L (98-107); CREATININE FOR GFR 0.39 MG/DL (0.55-1.30); GLOMERULAR FILTRATION RATE > 60.0 (>45); GLUCOSE, FASTING 105 MG/DL (74-106); POTASSIUM SERUM 3.6 MMOL/L (3.5-5.1); SODIUM LEVEL 136 MMOL/L (136-145)
[2022-08-07 17:20] LABS: FOLATE 11.02 NG/ML (>5.4)
[2022-08-07 18:00] VITALS: BP 132/88
[2022-08-07] MEDS: LIDOCAINE 5% (LIDODERM) PATCH TD SCH (21:00)
[2022-08-07 22:00] VITALS: BP 116/81
[2022-08-08 06:00] VITALS: BP 102/66
[2022-08-08 08:02] LABS: BASO # 0.1 10^3/uL (0.0-0.2); BASO % 1.4 % (0.0-1.0); EOS # 0.1 10^3/uL (0.0-0.5); HEMATOCRIT 31.1 % (36.0-47.0); LYMPH # 1.9 10^3/uL (1.5-5.0); LYMPH % 28.5 % (24.0-44.0); MEAN CORPUSCULAR HEMOGLOBIN 29.3 pg (27.0-33.0); MEAN CORPUSCULAR HGB CONC 32.2 g/dl (32.0-36.5); MEAN CORPUSCULAR VOLUME 91.2 fl (80.0-96.0); MONO # 0.7 10^3/uL (0.0-0.8); MONO % 10.8 % (2.0-8.0); NEUTROPHILS # 3.8 10^3/uL (1.5-8.5); NEUTROPHILS % 56.7 % (36.0-66.0); PLATELET COUNT, AUTOMATED 307 10^3/uL (150-450); RED BLOOD COUNT 3.41 10^6/uL (4.00-5.40); WHITE BLOOD COUNT 6.6 10^3/uL (4.0-10.0)
[2022-08-08 08:05] LABS: INR 0.96
[2022-08-08 08:06] LABS: PARTIAL THROMBOPLASTIN TIME 29.9 SECONDS (24.8-34.2)
[2022-08-08 08:24] LABS: BLOOD UREA NITROGEN 41 MG/DL (9-23); CALCIUM LEVEL 8.8 MG/DL (8.3-10.6); CARBON DIOXIDE LEVEL 30 MMOL/L (20-31); CHLORIDE LEVEL 100 MMOL/L (98-107); CREATININE FOR GFR 0.55 MG/DL (0.55-1.30); GLOMERULAR FILTRATION RATE > 60.0 (>45); GLUCOSE, FASTING 111 MG/DL (74-106); POTASSIUM SERUM 4.9 MMOL/L (3.5-5.1); SODIUM LEVEL 135 MMOL/L (136-145)
[2022-08-08] MEDS: NYSTATIN 100,000 UNITS/GM TOPICAL PWD 15GM TOP SCH ×2 (09:00→20:05)
[2022-08-08] MEDS: DOCUSATE SODIUM 100MG CAPSULE PO SCH ×2 (10:07→20:04)
[2022-08-08] MEDS: DIVALPROEX 500 MG TAB PO SCH ×2 (10:08→20:04)
[2022-08-08] MEDS: MAGNESIUM OXIDE 400MG TAB (MAG-OX) PO SCH ×3 (10:09→20:02)
[2022-08-08] MEDS: QUEtiapine FUMARATE 50MG TAB PO SCH (10:09)
[2022-08-08] MEDS: MOM 30ML SUSPENSION UDC PO SCH (10:09)
[2022-08-08] MEDS: GABAPENTIN 300 MG CAP PO SCH ×2 (10:09→20:04)
[2022-08-08] MEDS: risperiDONE 0.5 MG TAB PO SCH ×2 (10:10→20:02)
[2022-08-08] MEDS: KETOROLAC TROMETHAMINE 10 MG TAB PO SCH ×2 (10:11→20:01)
[2022-08-08] MEDS: ACETAMINOPHEN 500 MG TAB PO SCH ×2 (10:15→20:04)
[2022-08-08] MEDS: APIXABAN 5 MG TAB (ELIQUIS) PO SCH ×2 (10:15→20:02)
[2022-08-08 16:09] VITALS: BP 131/78
[2022-08-08] MEDS: LIDOCAINE 5% (LIDODERM) PATCH TD SCH (20:05)
[2022-08-08 21:01] VITALS: BP 138/86
[2022-08-09 05:13] VITALS: BP 159/92
[2022-08-09] MEDS: NYSTATIN 100,000 UNITS/GM TOPICAL PWD 15GM TOP SCH ×3 (09:00→22:05)
[2022-08-09] MEDS: KETOROLAC TROMETHAMINE 10 MG TAB PO SCH ×3 (09:00→21:00)
[2022-08-09] MEDS: MOM 30ML SUSPENSION UDC PO SCH (10:22)
[2022-08-09] MEDS: DOCUSATE SODIUM 100MG CAPSULE PO SCH ×2 (10:22→21:00)
[2022-08-09] MEDS: risperiDONE 0.5 MG TAB PO SCH ×2 (10:22→22:01)
[2022-08-09] MEDS: APIXABAN 5 MG TAB (ELIQUIS) PO SCH ×2 (10:23→22:04)
[2022-08-09] MEDS: MAGNESIUM OXIDE 400MG TAB (MAG-OX) PO SCH ×3 (10:23→22:03)
[2022-08-09] MEDS: QUEtiapine FUMARATE 50MG TAB PO SCH (10:23)
[2022-08-09] MEDS: GABAPENTIN 300 MG CAP PO SCH ×2 (10:24→22:03)
[2022-08-09] MEDS: ACETAMINOPHEN 500 MG TAB PO SCH ×2 (10:24→22:01)
[2022-08-09] MEDS: DIVALPROEX 500 MG TAB PO SCH ×3 (10:25→22:03)
[2022-08-09] MEDS: LIDOCAINE 5% (LIDODERM) PATCH TD SCH (21:00)
[2022-08-10 06:00] VITALS: BP 143/89
[2022-08-10] MEDS: NYSTATIN 100,000 UNITS/GM TOPICAL PWD 15GM TOP SCH ×2 (09:00→21:00)
[2022-08-10] MEDS: DOCUSATE SODIUM 100MG CAPSULE PO SCH ×2 (09:54→21:30)
[2022-08-10] MEDS: GABAPENTIN 300 MG CAP PO SCH ×2 (09:55→21:30)
[2022-08-10] MEDS: ACETAMINOPHEN 500 MG TAB PO SCH ×2 (09:55→21:31)
[2022-08-10] MEDS: risperiDONE 0.5 MG TAB PO SCH ×2 (09:55→21:30)
[2022-08-10] MEDS: APIXABAN 5 MG TAB (ELIQUIS) PO SCH ×2 (09:55→21:29)
[2022-08-10] MEDS: QUEtiapine FUMARATE 50MG TAB PO SCH (09:55)
[2022-08-10] MEDS: KETOROLAC TROMETHAMINE 10 MG TAB PO SCH ×2 (09:55→21:30)
[2022-08-10] MEDS: MOM 30ML SUSPENSION UDC PO SCH (09:56)
[2022-08-10] MEDS: DIVALPROEX 500 MG TAB PO SCH ×2 (09:56→21:29)
[2022-08-10] MEDS: MAGNESIUM OXIDE 400MG TAB (MAG-OX) PO SCH ×3 (09:56→21:30)
[2022-08-10] MEDS: LIDOCAINE 5% (LIDODERM) PATCH TD SCH (21:29)
[2022-08-11 06:00] VITALS: BP 126/76
[2022-08-11] MEDS: DOCUSATE SODIUM 100MG CAPSULE PO SCH ×3 (09:00→20:04)
[2022-08-11] MEDS: ACETAMINOPHEN 500 MG TAB PO SCH ×4 (09:00→20:04)
[2022-08-11] MEDS: NYSTATIN 100,000 UNITS/GM TOPICAL PWD 15GM TOP SCH ×2 (09:00→20:00)
[2022-08-11] MEDS: QUEtiapine FUMARATE 50MG TAB PO SCH (10:15)
[2022-08-11] MEDS: MOM 30ML SUSPENSION UDC PO SCH (10:15)
[2022-08-11] MEDS: DIVALPROEX 500 MG TAB PO SCH ×3 (10:15→20:04)
[2022-08-11] MEDS: MAGNESIUM OXIDE 400MG TAB (MAG-OX) PO SCH ×3 (10:16→19:56)
[2022-08-11] MEDS: risperiDONE 0.5 MG TAB PO SCH ×2 (10:16→19:56)
[2022-08-11] MEDS: GABAPENTIN 300 MG CAP PO SCH ×3 (10:17→20:04)
[2022-08-11] MEDS: APIXABAN 5 MG TAB (ELIQUIS) PO SCH ×2 (10:17→19:57)
[2022-08-11] MEDS: LIDOCAINE 5% (LIDODERM) PATCH TD SCH ×3 (11:12→19:59)
[2022-08-11] MEDS: NAPROXEN 250 MG TAB PO SCH (21:00)
[2022-08-12 06:00] VITALS: BP 127/76
[2022-08-12 06:05] LABS: BASO # 0.1 10^3/uL (0.0-0.2); EOS # 0.1 10^3/uL (0.0-0.5); HEMATOCRIT 33.9 % (36.0-47.0); HEMOGLOBIN 10.4 g/dl (12.0-15.5); LYMPH # 1.6 10^3/uL (1.5-5.0); LYMPH % 23.9 % (24.0-44.0); MEAN CORPUSCULAR HEMOGLOBIN 28.7 pg (27.0-33.0); MEAN CORPUSCULAR HGB CONC 30.7 g/dl (32.0-36.5); MEAN CORPUSCULAR VOLUME 93.6 fl (80.0-96.0); MONO # 0.7 10^3/uL (0.0-0.8); MONO % 10.4 % (2.0-8.0); NEUTROPHILS # 4.3 10^3/uL (1.5-8.5); NEUTROPHILS % 62.3 % (36.0-66.0); PLATELET COUNT, AUTOMATED 311 10^3/uL (150-450); RED BLOOD COUNT 3.62 10^6/uL (4.00-5.40); WHITE BLOOD COUNT 6.9 10^3/uL (4.0-10.0)
[2022-08-12 06:26] LABS: BLOOD UREA NITROGEN 32 MG/DL (9-23); CALCIUM LEVEL 9.1 MG/DL (8.3-10.6); CARBON DIOXIDE LEVEL 33 MMOL/L (20-31); CHLORIDE LEVEL 96 MMOL/L (98-107); CREATININE FOR GFR 0.45 MG/DL (0.55-1.30); GLOMERULAR FILTRATION RATE > 60.0 (>45); GLUCOSE, FASTING 129 MG/DL (74-106); POTASSIUM SERUM 4.6 MMOL/L (3.5-5.1); SODIUM LEVEL 135 MMOL/L (136-145)
[2022-08-12] MEDS: NYSTATIN 100,000 UNITS/GM TOPICAL PWD 15GM TOP SCH ×2 (09:00→21:00)
[2022-08-12] MEDS: ACETAMINOPHEN 500 MG TAB PO SCH ×2 (09:00→21:00)
[2022-08-12] MEDS: DIVALPROEX 500 MG TAB PO SCH ×3 (09:00→21:00)
[2022-08-12] MEDS: MAGNESIUM OXIDE 400MG TAB (MAG-OX) PO SCH ×3 (09:06→21:44)
[2022-08-12] MEDS: DOCUSATE SODIUM 100MG CAPSULE PO SCH ×2 (09:06→21:00)
[2022-08-12] MEDS: QUEtiapine FUMARATE 50MG TAB PO SCH (09:07)
[2022-08-12] MEDS: APIXABAN 5 MG TAB (ELIQUIS) PO SCH ×2 (09:07→21:45)
[2022-08-12] MEDS: NAPROXEN 250 MG TAB PO SCH ×2 (09:07→21:45)
[2022-08-12] MEDS: GABAPENTIN 300 MG CAP PO SCH ×2 (09:07→21:00)
[2022-08-12] MEDS: risperiDONE 0.5 MG TAB PO SCH ×2 (09:07→21:44)
[2022-08-12] MEDS: MOM 30ML SUSPENSION UDC PO SCH (09:08)
[2022-08-12] MEDS: LIDOCAINE 5% (LIDODERM) PATCH TD SCH (21:00)
[2022-08-13 06:00] VITALS: BP 145/95
[2022-08-13] MEDS: ACETAMINOPHEN 500 MG TAB PO SCH ×2 (09:00→21:00)
[2022-08-13] MEDS: DOCUSATE SODIUM 100MG CAPSULE PO SCH ×2 (09:00→21:00)
[2022-08-13] MEDS: NYSTATIN 100,000 UNITS/GM TOPICAL PWD 15GM TOP SCH ×2 (09:00→21:00)
[2022-08-13] MEDS: DIVALPROEX 500 MG TAB PO SCH ×2 (09:00→21:00)
[2022-08-13] MEDS: MAGNESIUM OXIDE 400MG TAB (MAG-OX) PO SCH ×3 (09:27→21:20)
[2022-08-13] MEDS: NAPROXEN 250 MG TAB PO SCH ×2 (09:27→21:00)
[2022-08-13] MEDS: APIXABAN 5 MG TAB (ELIQUIS) PO SCH ×2 (09:27→21:19)
[2022-08-13] MEDS: GABAPENTIN 300 MG CAP PO SCH ×2 (09:27→21:00)
[2022-08-13] MEDS: MOM 30ML SUSPENSION UDC PO SCH (09:27)
[2022-08-13] MEDS: risperiDONE 0.5 MG TAB PO SCH ×2 (09:27→21:27)
[2022-08-13] MEDS: QUEtiapine FUMARATE 50MG TAB PO SCH (09:27)
[2022-08-13] MEDS: LIDOCAINE 5% (LIDODERM) PATCH TD SCH (21:00)
[2022-08-14 06:00] VITALS: BP 136/95
[2022-08-14] MEDS: DIVALPROEX 500 MG TAB PO SCH ×2 (09:00→20:17)
[2022-08-14] MEDS: GABAPENTIN 300 MG CAP PO SCH ×2 (09:00→20:15)
[2022-08-14] MEDS: NYSTATIN 100,000 UNITS/GM TOPICAL PWD 15GM TOP SCH ×2 (09:00→20:17)
[2022-08-14] MEDS: DOCUSATE SODIUM 100MG CAPSULE PO SCH ×2 (09:00→20:17)
[2022-08-14] MEDS: QUEtiapine FUMARATE 50MG TAB PO SCH (09:00)
[2022-08-14] MEDS: ACETAMINOPHEN 500 MG TAB PO SCH ×2 (09:57→20:17)
[2022-08-14] MEDS: NAPROXEN 250 MG TAB PO SCH ×2 (10:12→20:15)
[2022-08-14] MEDS: APIXABAN 5 MG TAB (ELIQUIS) PO SCH ×2 (10:12→20:14)
[2022-08-14] MEDS: MAGNESIUM OXIDE 400MG TAB (MAG-OX) PO SCH ×3 (10:13→20:14)
[2022-08-14] MEDS: MOM 30ML SUSPENSION UDC PO SCH (10:13)
[2022-08-14] MEDS: risperiDONE 0.5 MG TAB PO SCH ×2 (10:13→20:15)
[2022-08-14] MEDS: LIDOCAINE 5% (LIDODERM) PATCH TD SCH (20:17)
[2022-08-15 06:03] VITALS: BP 130/92
[2022-08-15] MEDS: ACETAMINOPHEN 500 MG TAB PO SCH (09:00)
[2022-08-15] MEDS: QUEtiapine FUMARATE 50MG TAB PO SCH (09:00)
[2022-08-15] MEDS: DIVALPROEX 500 MG TAB PO SCH (09:00)
[2022-08-15] MEDS: NYSTATIN 100,000 UNITS/GM TOPICAL PWD 15GM TOP SCH (09:00)
[2022-08-15] MEDS: NAPROXEN 250 MG TAB PO SCH (10:09)
[2022-08-15] MEDS: MOM 30ML SUSPENSION UDC PO SCH (10:10)
[2022-08-15] MEDS: APIXABAN 5 MG TAB (ELIQUIS) PO SCH (10:10)
[2022-08-15] MEDS: DOCUSATE SODIUM 100MG CAPSULE PO SCH (10:10)
[2022-08-15] MEDS: GABAPENTIN 300 MG CAP PO SCH (10:10)
[2022-08-15] MEDS: risperiDONE 0.5 MG TAB PO SCH (10:11)
[2022-08-15] MEDS: MAGNESIUM OXIDE 400MG TAB (MAG-OX) PO SCH (10:11)
[2022-08-15] MEDS ORDERED: GABA-282 PO (12:04)
[2022-08-15] MEDS ORDERED: RISP-7 PO (12:04)
[2022-08-15] MEDS ORDERED: DEPA1TAB3 PO (12:04)
[2022-08-15] MEDS ORDERED: MAGN400T2 PO (12:04)
[2022-08-15] MEDS ORDERED: QUET50TA4 PO (12:26)
== END 2022-08-15 14:45 | disposition home or self-care (01) | DRG 299 ==
LOC: M ED 21:37 → M ED INP 08-03 02:23 → M MS5PR 08-03 03:50
PROVIDERS: ADMIT Family Medicine; ATTEND Family Medicine
DX: I82.412 Acute embolism and thrombosis of left femoral vein (principal); E43 Unspecified severe protein-calorie malnutrition; Z68.1 Body mass index [BMI] 19.9 or less, adult; E87.1 Hypo-osmolality and hyponatremia; M48.54XA Collapsed vertebra, not elsewhere classified, thoracic region, initial encounter for fracture; M48.56XA Collapsed vertebra, not elsewhere classified, lumbar region, initial encounter for fracture; I10 Essential (primary) hypertension; E78.5 Hyperlipidemia, unspecified; J44.9 Chronic obstructive pulmonary disease, unspecified; D50.9 Iron deficiency anemia, unspecified; F31.9 Bipolar disorder, unspecified; M51.36 Other intervertebral disc degeneration, lumbar region; R26.89 Other abnormalities of gait and mobility; K59.09 Other constipation; E83.42 Hypomagnesemia; R29.6 Repeated falls; M85.851 Other specified disorders of bone density and structure, right thigh; S22.41XD Multiple fractures of ribs, right side, subsequent encounter for fracture with routine healing; E02 Subclinical iodine-deficiency hypothyroidism; Z91.018 Allergy to other foods; Z91.14 Patient's other noncompliance with medication regimen; Z88.0 Allergy status to penicillin; Z87.81 Personal history of (healed) traumatic fracture; Z79.899 Other long term (current) drug therapy; Z88.8 Allergy status to other drugs, medicaments and biological substances; Z87.891 Personal history of nicotine dependence; Z90.49 Acquired absence of other specified parts of digestive tract

== ENCOUNTER → 2022-09-19 | Outpatient (CLI) | payer MEDICARE, MEDICAID ==
[~2022-09-19] MED LIST changes: +ACET1TAB55 PO; +DEPA1TAB3 PO; +ELIQ5TAB PO; +GABA-282 PO; +HYDR12.55 PO; +MAGN400T2 PO; +QUET1TAB17 PO; +QUET50TA4 PO; +RISP-7 PO; +RISP-8 PO; +TRAM50TA2 PO
== END ==
LOC: M SOG 09:29
PROVIDERS: ATTEND Orthopaedic Surgery
DX: M25.551 Pain in right hip (principal); Z53.9 Procedure and treatment not carried out, unspecified reason

== ENCOUNTER 2022-11-05 17:33 | Emergency (ER) | payer MEDICARE, MEDICAID ==
[~2022-11-05] VITALS: Ht 170.2 cm; Wt 49.0 kg
[2022-11-06 01:35] VITALS: BP 159/88
[2022-11-06 02:37] LABS: APPEARANCE, URINE CLEAR (CLEAR); BACTERIA, URINE AUTO NEGATIVE (NEGATIVE); BILIRUBIN, URINE AUTO NEGATIVE (NEGATIVE); BLOOD, URINE BLOOD 1+ (NEGATIVE); COLOR, URINE STRAW (YELLOW); GLUCOSE, URINE (UA) AUTO NEGATIVE (NEGATIVE); KETONE, URINE AUTO NEGATIVE (NEGATIVE); LEUKOCYTE ESTERASE, URINE AUTO NEGATIVE (NEGATIVE); NITRITE, URINE AUTO NEGATIVE (NEGATIVE); PROTEIN, URINE AUTO NEGATIVE (NEGATIVE); RBC, URINE AUTO 4 /HPF (0-3); SPECIFIC GRAVITY URINE AUTO 1.008 (1.002-1.035); SQUAMOUS EPITHELIAL CELL UR AU 0 /HPF (0-6); UROBILINOGEN, URINE AUTO 0.2 mg/dL (0.0-2.0); WBC, URINE AUTO 1 /HPF (0-3)
[2022-11-06 03:30] LABS: C REACTIVE PROTEIN QUANTITATIV < 0.40 MG/DL (<1.0)
[2022-11-06 03:31] LABS: BLOOD UREA NITROGEN 20 MG/DL (9-23); CALCIUM LEVEL 9.5 MG/DL (8.3-10.6); CARBON DIOXIDE LEVEL 30 MMOL/L (20-31); CHLORIDE LEVEL 93 MMOL/L (98-107); CREATININE FOR GFR 0.42 MG/DL (0.55-1.30); GLOMERULAR FILTRATION RATE > 60.0 (>45); GLUCOSE, FASTING 98 MG/DL (74-106); POTASSIUM SERUM 3.9 MMOL/L (3.5-5.1); SODIUM LEVEL 128 MMOL/L (136-145)
[2022-11-06 03:54] LABS: BASO # 0.1 10^3/uL (0.0-0.2); BASO % 0.9 % (0.0-1.0); EOS # 0.1 10^3/uL (0.0-0.5); EOS % 1.5 % (0.0-3.0); HEMATOCRIT 34.7 % (36.0-47.0); HEMOGLOBIN 11.5 g/dl (12.0-15.5); LYMPH % 24.8 % (24.0-44.0); MEAN CORPUSCULAR HEMOGLOBIN 29.1 pg (27.0-33.0); MEAN CORPUSCULAR HGB CONC 33.1 g/dl (32.0-36.5); MEAN CORPUSCULAR VOLUME 87.8 fl (80.0-96.0); MONO # 0.9 10^3/uL (0.0-0.8); MONO % 11.3 % (2.0-8.0); NEUTROPHILS # 4.9 10^3/uL (1.5-8.5); PLATELET COUNT, AUTOMATED 293 10^3/uL (150-450); RED BLOOD COUNT 3.95 10^6/uL (4.00-5.40); WHITE BLOOD COUNT 8.1 10^3/uL (4.0-10.0)
[2022-11-06] MEDS ORDERED: DALBAVANCIN 1,500 MG in D5W 250 ML IV ONE (05:00)
== END 2022-11-06 07:28 | disposition home or self-care (01) ==
LOC: EDBD 17:33 → M ED 17:33
DX: L03.116 Cellulitis of left lower limb (principal); F31.9 Bipolar disorder, unspecified; I10 Essential (primary) hypertension; Z91.14 Patient's other noncompliance with medication regimen; Z79.01 Long term (current) use of anticoagulants; Z79.899 Other long term (current) drug therapy; Z88.0 Allergy status to penicillin; Z88.8 Allergy status to other drugs, medicaments and biological substances; Z91.018 Allergy to other foods
CPT/HCPCS: 80048; 81001; 85025; 86140; 87040; 93971; 96374; 99284; J0875

== ENCOUNTER 2022-11-24 07:44 | Emergency (ER) | payer MEDICARE, MEDICAID ==
[~2022-11-24] VITALS: Ht 167.6 cm; Wt 55.3 kg
[2022-11-24 08:27] VITALS: BP 163/92
[2022-11-24 08:35] LABS: BASO # 0.2 10^3/uL (0.0-0.2); BASO % 1.8 % (0.0-1.0); EOS # 0.2 10^3/uL (0.0-0.5); EOS % 2.2 % (0.0-3.0); HEMATOCRIT 35.5 % (36.0-47.0); HEMOGLOBIN 11.8 g/dl (12.0-15.5); LYMPH % 23.9 % (24.0-44.0); MEAN CORPUSCULAR HEMOGLOBIN 28.6 pg (27.0-33.0); MEAN CORPUSCULAR HGB CONC 33.2 g/dl (32.0-36.5); MONO # 1.1 10^3/uL (0.0-0.8); NEUTROPHILS # 4.8 10^3/uL (1.5-8.5); NEUTROPHILS % 58.5 % (36.0-66.0); PLATELET COUNT, AUTOMATED 319 10^3/uL (150-450); RED BLOOD COUNT 4.13 10^6/uL (4.00-5.40); WHITE BLOOD COUNT 8.2 10^3/uL (4.0-10.0)
[2022-11-24 08:45] LABS: ERYTHROCYTE SEDIMENTATION RATE 26 mm/hr (0-30)
[2022-11-24 09:10] LABS: BLOOD UREA NITROGEN 19 MG/DL (9-23); CALCIUM LEVEL 9.3 MG/DL (8.3-10.6); CARBON DIOXIDE LEVEL 30 MMOL/L (20-31); CHLORIDE LEVEL 93 MMOL/L (98-107); CREATININE FOR GFR 0.44 MG/DL (0.55-1.30); GLOMERULAR FILTRATION RATE > 60.0 (>45); GLUCOSE, FASTING 101 MG/DL (74-106); POTASSIUM SERUM 4.1 MMOL/L (3.5-5.1); SODIUM LEVEL 128 MMOL/L (136-145)
== END 2022-11-24 09:35 | disposition home or self-care (01) ==
LOC: EDBD 07:44 → M ED 07:44
DX: I87.2 Venous insufficiency (chronic) (peripheral) (principal); L30.9 Dermatitis, unspecified; E11.9 Type 2 diabetes mellitus without complications; I10 Essential (primary) hypertension; J44.9 Chronic obstructive pulmonary disease, unspecified; E78.5 Hyperlipidemia, unspecified; F17.200 Nicotine dependence, unspecified, uncomplicated; Z88.0 Allergy status to penicillin; Z88.8 Allergy status to other drugs, medicaments and biological substances

== ENCOUNTER 2022-12-01 01:16 | Emergency (ER) | payer MEDICARE, MEDICAID ==
[2022-12-01 01:28] VITALS: BP 157/76
[2022-12-01] MEDS ORDERED: NS 1,000 ML IV ONE (04:00)
[2022-12-01 04:28] LABS: BASO # 0.2 10^3/uL (0.0-0.2); BASO % 1.7 % (0.0-1.0); EOS # 0.3 10^3/uL (0.0-0.5); EOS % 2.7 % (0.0-3.0); HEMATOCRIT 35.1 % (36.0-47.0); HEMOGLOBIN 11.6 g/dl (12.0-15.5); LYMPH # 1.9 10^3/uL (1.5-5.0); LYMPH % 20.1 % (24.0-44.0); MEAN CORPUSCULAR HEMOGLOBIN 28.6 pg (27.0-33.0); MEAN CORPUSCULAR VOLUME 86.5 fl (80.0-96.0); MONO % 11.1 % (2.0-8.0); NEUTROPHILS % 63.7 % (36.0-66.0); PLATELET COUNT, AUTOMATED 322 10^3/uL (150-450); RED BLOOD COUNT 4.06 10^6/uL (4.00-5.40); WHITE BLOOD COUNT 9.4 10^3/uL (4.0-10.0)
[2022-12-01 04:35] LABS: AMORPHOUS SEDIMENT SMALL (NEGATIVE); APPEARANCE, URINE HAZY (CLEAR); BACTERIA, URINE AUTO NEGATIVE (NEGATIVE); BILIRUBIN, URINE AUTO NEGATIVE (NEGATIVE); BLOOD, URINE BLOOD 1+ (NEGATIVE); COLOR, URINE YELLOW (YELLOW); GLUCOSE, URINE (UA) AUTO NEGATIVE (NEGATIVE); KETONE, URINE AUTO NEGATIVE (NEGATIVE); LEUKOCYTE ESTERASE, URINE AUTO 2+ (NEGATIVE); NITRITE, URINE AUTO NEGATIVE (NEGATIVE); PROTEIN, URINE AUTO NEGATIVE (NEGATIVE); RBC, URINE AUTO 4 /HPF (0-3); SPECIFIC GRAVITY URINE AUTO 1.014 (1.002-1.035); SQUAMOUS EPITHELIAL CELL UR AU 0 /HPF (0-6); UROBILINOGEN, URINE AUTO 0.2 mg/dL (0.0-2.0); WBC, URINE AUTO 20 /HPF (0-3)
[2022-12-01 04:47] LABS: ALBUMIN 3.4 G/DL (3.2-5.2); ALKALINE PHOSPHATASE 92 U/L (46-116); ALT/SGPT 15 U/L (7.0-40); AST/SGOT 19 U/L (<34); BILIRUBIN,DIRECT 0.3 MG/DL (<0.4); BILIRUBIN,TOTAL 1.1 MG/DL (0.3-1.2); BLOOD UREA NITROGEN 24 MG/DL (9-23); C REACTIVE PROTEIN QUANTITATIV < 0.40 MG/DL (<1.0); CALCIUM LEVEL 8.9 MG/DL (8.3-10.6); CARBON DIOXIDE LEVEL 30 MMOL/L (20-31); CHLORIDE LEVEL 93 MMOL/L (98-107); CREATININE FOR GFR 0.46 MG/DL (0.55-1.30); GLOMERULAR FILTRATION RATE > 60.0 (>45); GLUCOSE, FASTING 86 MG/DL (74-106); POTASSIUM SERUM 4.3 MMOL/L (3.5-5.1); SODIUM LEVEL 128 MMOL/L (136-145); TOTAL PROTEIN 6.5 G/DL (5.7-8.2)
[2022-12-01 04:55] LABS: RSV AMPLIFICATION NEGATIVE (NEGATIVE)
[2022-12-01 05:58] LABS: VALPROIC ACID (DEPAKOTE) < 3.0 UG/ML (50.0-100.0)
[2022-12-01 05:59] LABS: ACETAMINOPHEN LEVEL < 2.0 UG/ML (10.0-20.0); SALICYLATE LEVEL < 3.0 MG/DL (<30)
[2022-12-01 06:02] LABS: THYROID STIMULATING HORMONE 3.945 uIU/ML (0.55-4.78)
[2022-12-01 06:12] LABS: AMPHETAMINES LEVEL URINE NEGATIVE (NEGATIVE); BENZODIAZEPINES URINE NEGATIVE (NEGATIVE)
[2022-12-01 06:13] LABS: BARBITURATES URINE NEGATIVE (NEGATIVE); CANNABINOIDS URINE NEGATIVE (NEGATIVE); COCAINE METABOLITE URINE NEGATIVE (NEGATIVE); METHADONE URINE NEGATIVE (NEGATIVE); OPIATES URINE NEGATIVE (NEGATIVE); PHENCYCLIDINE URINE NEGATIVE (NEGATIVE)
== END 2022-12-01 06:57 | disposition home or self-care (01) ==
LOC: M ED 01:16
DX: F03.90 Unspecified dementia, unspecified severity, without behavioral disturbance, psychotic disturbance, mood disturbance, and anxiety (principal); I87.2 Venous insufficiency (chronic) (peripheral); F20.9 Schizophrenia, unspecified; F31.9 Bipolar disorder, unspecified; F32.A Depression, unspecified; Z79.01 Long term (current) use of anticoagulants; Z88.0 Allergy status to penicillin; Z88.8 Allergy status to other drugs, medicaments and biological substances; Z79.899 Other long term (current) drug therapy

== ENCOUNTER 2023-01-03 04:11 | Observation (INO) | payer MEDICARE, MEDICAID ==
[~2023-01-03] VITALS: Ht 170.2 cm; Wt 55.7 kg
[~2023-01-03 04:11] MED LIST changes: +CIPR0.3S37 AU; -CIPR0.3S6 AU; +FLUT50SP17; -FLUTISP; -LOSA100T45 PO; +LOSA100T46 PO
[2023-01-03] MEDS ORDERED: FAMOTIDINE 20MG/2ML VIAL IVP ONE (06:30)
[2023-01-03] MEDS ORDERED: methylPREDNISolone 125MG 2ML VIAL IV ONE (06:30)
[2023-01-03] MEDS ORDERED: NS 1,000 ML IV ONE (06:30)
[2023-01-03 06:49] LABS: BASO # 0.1 10^3/uL (0.0-0.2); BASO % 1.1 % (0.0-1.0); EOS # 0.7 10^3/uL (0.0-0.5); EOS % 8.4 % (0.0-3.0); HEMATOCRIT 32.5 % (36.0-47.0); HEMOGLOBIN 10.7 g/dl (12.0-15.5); LYMPH # 1.9 10^3/uL (1.5-5.0); LYMPH % 23.3 % (24.0-44.0); MEAN CORPUSCULAR HEMOGLOBIN 28.2 pg (27.0-33.0); MEAN CORPUSCULAR HGB CONC 32.9 g/dl (32.0-36.5); MEAN CORPUSCULAR VOLUME 85.8 fl (80.0-96.0); MONO % 11.9 % (2.0-8.0); NEUTROPHILS # 4.4 10^3/uL (1.5-8.5); NEUTROPHILS % 54.7 % (36.0-66.0); PLATELET COUNT, AUTOMATED 334 10^3/uL (150-450); RED BLOOD COUNT 3.79 10^6/uL (4.00-5.40)
[2023-01-03 06:56] LABS: ERYTHROCYTE SEDIMENTATION RATE 9 mm/hr (0-30)
[2023-01-03 07:12] LABS: BLOOD UREA NITROGEN 28 MG/DL (9-23); CALCIUM LEVEL 8.9 MG/DL (8.3-10.6); CARBON DIOXIDE LEVEL 27 MMOL/L (20-31); CHLORIDE LEVEL 96 MMOL/L (98-107); CREATININE FOR GFR 0.45 MG/DL (0.55-1.30); GLOMERULAR FILTRATION RATE > 60.0 (>45); GLUCOSE, FASTING 95 MG/DL (74-106); POTASSIUM SERUM 4.1 MMOL/L (3.5-5.1); SODIUM LEVEL 132 MMOL/L (136-145)
[2023-01-03] MEDS ORDERED: HYDR12.55 PO (09:16)
[2023-01-03] MEDS ORDERED: LOSA100T46 PO (09:16)
[2023-01-03] MEDS ORDERED: DIPH-435 PO (09:16)
[2023-01-03] MEDS ORDERED: SPIR-10 PO (09:16)
[2023-01-03] MEDS ORDERED: HOME MED LIST COMPLETE! XX SCH (09:20)
[2023-01-03 09:42] LABS: RSV AMPLIFICATION NEGATIVE (NEGATIVE)
[2023-01-03] MEDS ORDERED: ISOVUE-370 76% 100ML VIAL As Ordered ONE (10:20)
[2023-01-03] MEDS ORDERED: NS 1,000 ML IV SCH (10:25)
[2023-01-03] MEDS ORDERED: BISACODYL 10MG SUPP PR PRN (11:50)
[2023-01-03] MEDS ORDERED: IPRATROPIUM 0.5MG/ALBUTEROL 2.5MG INH SOL UD 3ML (DUONEB) NEB PRN (11:50)
[2023-01-03 11:51] LABS: THYROID STIMULATING HORMONE 1.909 uIU/ML (0.55-4.78); TOTAL 25(OH) VITAMIN D 30.1 NG/ML (20.0-100.0)
[2023-01-03 12:00] VITALS: BP 139/81
[2023-01-03] MEDS: SENOKOT S TAB PO SCH ×2 (13:31→21:30)
[2023-01-03] MEDS: risperiDONE 0.5 MG TAB PO SCH ×2 (13:31→21:30)
[2023-01-03] MEDS: diphenhydrAMINE 25MG CAP PO PRN (13:31)
[2023-01-03 14:00] VITALS: BP 134/82
[2023-01-03] MEDS: MIRALAX *UNIT DOSE* 17GM PACKET PO SCH ×2 (14:42→21:30)
[2023-01-03] MEDS: TRIAMCINOLONE ACET 0.1% CREAM 80GM TOP SCH ×2 (16:18→21:36)
[2023-01-03] MEDS: VANICREAM MOISTURIZING SKIN CREAM 113GM TUBE TOP SCH ×2 (16:18→21:36)
[2023-01-03 18:05] LABS: OSMOLALITY URINE 494 MOSM/KG (50-1400)
[2023-01-03 18:17] LABS: SODIUM,RANDOM URINE 117 MMOL/L
[2023-01-03] MEDS ORDERED: SODIUM CHLORIDE 1 GM TAB PO ONE (19:00)
[2023-01-03] MEDS ORDERED: QUEtiapine FUMARATE 25 MG TAB PO SCH (21:00)
[2023-01-03] MEDS: LOSARTAN 50MG TABLET PO SCH (21:31)
[2023-01-03 22:10] VITALS: BP 134/81
[2023-01-04 01:38] VITALS: BP 134/81
[2023-01-04 06:25] LABS: HEMATOCRIT 29.5 % (36.0-47.0); HEMOGLOBIN 9.7 g/dl (12.0-15.5); MEAN CORPUSCULAR HEMOGLOBIN 28.1 pg (27.0-33.0); MEAN CORPUSCULAR HGB CONC 32.9 g/dl (32.0-36.5); MEAN CORPUSCULAR VOLUME 85.5 fl (80.0-96.0); PLATELET COUNT, AUTOMATED 317 10^3/uL (150-450); RED BLOOD COUNT 3.45 10^6/uL (4.00-5.40); WHITE BLOOD COUNT 8.4 10^3/uL (4.0-10.0)
[2023-01-04 06:47] LABS: BLOOD UREA NITROGEN 20 MG/DL (9-23); CALCIUM LEVEL 8.6 MG/DL (8.3-10.6); CARBON DIOXIDE LEVEL 30 MMOL/L (20-31); CHLORIDE LEVEL 101 MMOL/L (98-107); CREATININE FOR GFR 0.43 MG/DL (0.55-1.30); GLOMERULAR FILTRATION RATE > 60.0 (>45); GLUCOSE, FASTING 102 MG/DL (74-106); POTASSIUM SERUM 4.1 MMOL/L (3.5-5.1); SODIUM LEVEL 135 MMOL/L (136-145)
[2023-01-04] MEDS: SENOKOT S TAB PO SCH ×2 (09:00→21:10)
[2023-01-04] MEDS: risperiDONE 0.5 MG TAB PO SCH ×2 (09:00→21:07)
[2023-01-04] MEDS: VITAMIN D 1,000 INTERNATIONAL UNITS TABLET PO SCH (09:00)
[2023-01-04] MEDS: diphenhydrAMINE 25MG CAP PO PRN (09:00)
[2023-01-04] MEDS: MIRALAX *UNIT DOSE* 17GM PACKET PO SCH ×2 (09:00→21:10)
[2023-01-04] MEDS ORDERED: VITAMIN D 50,000 UNITS CAPSULE (ERGOCALCIFEROL 1.25MG) PO SCH (09:00)
[2023-01-04] MEDS ORDERED: SODIUM CHLORIDE 1 GM TAB PO SCH (09:00)
[2023-01-04] MEDS: ENOXAPARIN 40MG/0.4ML SYRINGE (J1650 PER 10MG) SC SCH (09:01)
[2023-01-04] MEDS: VANICREAM MOISTURIZING SKIN CREAM 113GM TUBE TOP SCH ×2 (09:01→21:00)
[2023-01-04] MEDS: TRIAMCINOLONE ACET 0.1% CREAM 80GM TOP SCH ×2 (09:01→21:00)
[2023-01-04] MEDS ORDERED: ACETAMINOPHEN TAB 650MG DOSE (2X325MG) PO PRN (11:30)
[2023-01-04] MEDS ORDERED: NAPROXEN 250 MG TAB PO PRN (11:30)
[2023-01-04] MEDS: OLANZapine INTRAMUSCULAR 10MG VIAL IM PRN (13:19)
[2023-01-04] MEDS: SODIUM CHLORIDE 1 GM TAB PO SCH ×2 (13:58→21:07)
[2023-01-04 14:34] VITALS: BP 138/82
[2023-01-04] MEDS ORDERED: PERMETHRIN 5% CREAM 60 GM TOP ONE (18:00)
[2023-01-04 20:49] VITALS: BP 135/83
[2023-01-04] MEDS: QUEtiapine FUMARATE 50MG TAB PO SCH (21:07)
[2023-01-04] MEDS: LOSARTAN 50MG TABLET PO SCH (21:09)
[2023-01-05] MEDS ORDERED: [UNRECOGNIZED DRUG - OTHER] XX ONE (06:00)
[2023-01-05 06:11] LABS: BASO # 0.1 10^3/uL (0.0-0.2); BASO % 1.5 % (0.0-1.0); EOS # 0.4 10^3/uL (0.0-0.5); EOS % 5.1 % (0.0-3.0); HEMOGLOBIN 10.3 g/dl (12.0-15.5); LYMPH # 2.5 10^3/uL (1.5-5.0); LYMPH % 35.4 % (24.0-44.0); MEAN CORPUSCULAR HEMOGLOBIN 27.6 pg (27.0-33.0); MEAN CORPUSCULAR HGB CONC 31.2 g/dl (32.0-36.5); MEAN CORPUSCULAR VOLUME 88.5 fl (80.0-96.0); MONO # 0.8 10^3/uL (0.0-0.8); MONO % 11.3 % (2.0-8.0); NEUTROPHILS # 3.3 10^3/uL (1.5-8.5); NEUTROPHILS % 46.1 % (36.0-66.0); PLATELET COUNT, AUTOMATED 325 10^3/uL (150-450); RED BLOOD COUNT 3.73 10^6/uL (4.00-5.40); WHITE BLOOD COUNT 7.1 10^3/uL (4.0-10.0)
[2023-01-05 06:33] LABS: BLOOD UREA NITROGEN 21 MG/DL (9-23); CALCIUM LEVEL 8.7 MG/DL (8.3-10.6); CARBON DIOXIDE LEVEL 30 MMOL/L (20-31); CHLORIDE LEVEL 101 MMOL/L (98-107); CREATININE FOR GFR 0.47 MG/DL (0.55-1.30); GLOMERULAR FILTRATION RATE > 60.0 (>45); GLUCOSE, FASTING 96 MG/DL (74-106); POTASSIUM SERUM 4.9 MMOL/L (3.5-5.1); SODIUM LEVEL 135 MMOL/L (136-145)
[2023-01-05] MEDS: OLANZapine INTRAMUSCULAR 10MG VIAL IM PRN (07:07)
[2023-01-05] MEDS: VITAMIN D 1,000 INTERNATIONAL UNITS TABLET PO SCH (08:41)
[2023-01-05] MEDS: risperiDONE 0.5 MG TAB PO SCH ×2 (08:41→21:35)
[2023-01-05] MEDS: SENOKOT S TAB PO SCH ×2 (08:41→21:35)
[2023-01-05] MEDS: ENOXAPARIN 40MG/0.4ML SYRINGE (J1650 PER 10MG) SC SCH (08:41)
[2023-01-05] MEDS: MIRALAX *UNIT DOSE* 17GM PACKET PO SCH ×2 (08:41→21:35)
[2023-01-05] MEDS: SODIUM CHLORIDE 1 GM TAB PO SCH ×2 (08:41→21:34)
[2023-01-05] MEDS: TRIAMCINOLONE ACET 0.1% CREAM 80GM TOP SCH ×2 (08:42→21:37)
[2023-01-05] MEDS: VANICREAM MOISTURIZING SKIN CREAM 113GM TUBE TOP SCH ×2 (08:42→21:37)
[2023-01-05] MEDS ORDERED: OLANZapine INTRAMUSCULAR 10MG VIAL IM PRN (10:20)
[2023-01-05] MEDS: VALPROIC ACID 250MG CAP PO SCH ×2 (13:15→21:35)
[2023-01-05] MEDS: QUEtiapine FUMARATE 50MG TAB PO SCH (21:34)
[2023-01-05 21:38] VITALS: BP 155/104
[2023-01-05] MEDS: LOSARTAN 50MG TABLET PO SCH (21:38)
[2023-01-05 22:00] VITALS: BP 153/101
[2023-01-06 07:06] LABS: BLOOD UREA NITROGEN 21 MG/DL (9-23); CARBON DIOXIDE LEVEL 29 MMOL/L (20-31); CHLORIDE LEVEL 101 MMOL/L (98-107); GLOMERULAR FILTRATION RATE > 60.0 (>45); GLUCOSE, FASTING 105 MG/DL (74-106); POTASSIUM SERUM 4.3 MMOL/L (3.5-5.1); SODIUM LEVEL 135 MMOL/L (136-145)
[2023-01-06] MEDS: ENOXAPARIN 40MG/0.4ML SYRINGE (J1650 PER 10MG) SC SCH ×2 (09:00→09:34)
[2023-01-06] MEDS: VALPROIC ACID 250MG CAP PO SCH ×2 (09:00→09:33)
[2023-01-06] MEDS: SODIUM CHLORIDE 1 GM TAB PO SCH (09:33)
[2023-01-06] MEDS: risperiDONE 0.5 MG TAB PO SCH (09:33)
[2023-01-06] MEDS: MIRALAX *UNIT DOSE* 17GM PACKET PO SCH (09:33)
[2023-01-06] MEDS: VITAMIN D 1,000 INTERNATIONAL UNITS TABLET PO SCH (09:33)
[2023-01-06] MEDS: SENOKOT S TAB PO SCH (09:33)
[2023-01-06] MEDS: VANICREAM MOISTURIZING SKIN CREAM 113GM TUBE TOP SCH (09:34)
[2023-01-06] MEDS: TRIAMCINOLONE ACET 0.1% CREAM 80GM TOP SCH (09:34)
[2023-01-06 10:00] VITALS: BP 143/93
[2023-01-06] MEDS ORDERED: COLA100C5 PO (12:37)
[2023-01-06] MEDS ORDERED: QUET50TA4 PO (12:37)
[2023-01-06] MEDS ORDERED: VANI1CRE5 TOP (12:37)
[2023-01-06] MEDS ORDERED: VALP1CAP2 PO (12:37)
[2023-01-06] MEDS ORDERED: TRIA1CR80 TOP (12:37)
[2023-01-06] MEDS ORDERED: VITAD1000T PO (12:37)
[2023-01-06] MEDS ORDERED: SODI1TAB6 PO (12:37)
[2023-01-06] MEDS ORDERED: RISP-7 PO (12:37)
[2023-01-06] MEDS ORDERED: MIRA1POW3 PO (12:37)
[2023-01-06] MEDS ORDERED: ALBU8.5H INH (12:44)
[2023-01-06] MEDS ORDERED: IBUPROFEN 400MG TAB PO PRN (14:05)
[2023-01-06] MEDS ORDERED: traZODone 50 MG TAB PO PRN (14:05)
[2023-01-06] MEDS ORDERED: MAALOX 30 ML SUSP *UDC PO PRN (14:05)
[2023-01-06] MEDS ORDERED: MOM 30ML SUSPENSION UDC PO PRN (14:05)
[2023-01-06] MEDS ORDERED: ACETAMINOPHEN TAB 650MG DOSE (2X325MG) PO PRN (14:05)
[2023-01-06] MEDS ORDERED: LORazepam 1 MG TAB PO PRN (14:05)
== END 2023-01-06 16:33 ==
LOC: M ED 04:11 → EDBD 04:11 → M ED INP 04:12 → ENRESERV 10:20 → M MSPAV 11:58
PROVIDERS: ADMIT Internal Medicine; ATTEND Internal Medicine
DX: F31.9 Bipolar disorder, unspecified (principal); G93.41 Metabolic encephalopathy; F03.90 Unspecified dementia, unspecified severity, without behavioral disturbance, psychotic disturbance, mood disturbance, and anxiety; L30.9 Dermatitis, unspecified; L29.9 Pruritus, unspecified; I83.10 Varicose veins of unspecified lower extremity with inflammation; L97.909 Non-pressure chronic ulcer of unspecified part of unspecified lower leg with unspecified severity; K43.9 Ventral hernia without obstruction or gangrene; R10.819 Abdominal tenderness, unspecified site; E87.1 Hypo-osmolality and hyponatremia; J44.9 Chronic obstructive pulmonary disease, unspecified; I10 Essential (primary) hypertension; R73.03 Prediabetes; Z86.718 Personal history of other venous thrombosis and embolism; S72.91XG Unspecified fracture of right femur, subsequent encounter for closed fracture with delayed healing; S32.009G Unspecified fracture of unspecified lumbar vertebra, subsequent encounter for fracture with delayed healing; R41.82 Altered mental status, unspecified; M54.9 Dorsalgia, unspecified; Z91.148 Patient's other noncompliance with medication regimen for other reason; Z88.0 Allergy status to penicillin; Z88.8 Allergy status to other drugs, medicaments and biological substances; Z91.018 Allergy to other foods; Z79.899 Other long term (current) drug therapy

== ENCOUNTER 2023-01-06 12:09 | Inpatient (IN) | payer MEDICARE, MEDICAID ==
[~2023-01-06 12:09] MED LIST changes: +DIPH-435 PO; +SPIR-10 PO
[2023-01-06] MEDS ORDERED: TRIA1CR80 TOP (12:37)
[2023-01-06] MEDS ORDERED: VANI1CRE5 TOP (12:37)
[2023-01-06] MEDS ORDERED: MIRA1POW3 PO (12:37)
[2023-01-06] MEDS ORDERED: VALP1CAP2 PO (12:37)
[2023-01-06] MEDS ORDERED: RISP-7 PO (12:37)
[2023-01-06] MEDS ORDERED: VITAD1000T PO (12:37)
[2023-01-06] MEDS ORDERED: QUET50TA4 PO (12:37)
[2023-01-06] MEDS ORDERED: COLA100C5 PO (12:37)
[2023-01-06] MEDS ORDERED: SODI1TAB6 PO (12:37)
[2023-01-06] MEDS ORDERED: ALBU8.5H INH (12:44)
[2023-01-06] MEDS ORDERED: HOME MED LIST COMPLETE! XX SCH (13:15)
[2023-01-06] MEDS ORDERED: LORazepam 1 MG TAB PO PRN (14:40)
[2023-01-06] MEDS ORDERED: traZODone 50 MG TAB PO PRN (14:40)
[2023-01-06] MEDS ORDERED: ALBUTEROL 90 MCG/ACT 8GM HFA INHALER INH PRN (14:40)
[2023-01-06] MEDS ORDERED: MOM 30ML SUSPENSION UDC PO PRN (14:40)
[2023-01-06] MEDS ORDERED: MAALOX 30 ML SUSP *UDC PO PRN (14:40)
[2023-01-06 19:18] VITALS: BP 158/71
[2023-01-06] MEDS: LOSARTAN 50MG TABLET PO SCH (21:00)
[2023-01-06] MEDS: VANICREAM MOISTURIZING SKIN CREAM 113GM TUBE TOP SCH (21:00)
[2023-01-06] MEDS: TRIAMCINOLONE ACET 0.1% CREAM 80GM TOP SCH (21:00)
[2023-01-06] MEDS: QUEtiapine FUMARATE 50MG TAB PO SCH (21:46)
[2023-01-06] MEDS: risperiDONE 0.5 MG TAB PO SCH (21:46)
[2023-01-06] MEDS: VALPROIC ACID 250MG CAP PO SCH (21:46)
[2023-01-06] MEDS: SPIRONOLACTONE 25 MG TAB PO SCH (21:47)
[2023-01-06] MEDS: SODIUM CHLORIDE 1 GM TAB PO SCH (21:47)
[2023-01-06] MEDS: DOCUSATE SODIUM 100MG CAPSULE PO SCH (21:47)
[2023-01-07] MEDS: VITAMIN D 1,000 INTERNATIONAL UNITS TABLET PO SCH (09:59)
[2023-01-07] MEDS: MIRALAX *UNIT DOSE* 17GM PACKET PO SCH (09:59)
[2023-01-07] MEDS: DOCUSATE SODIUM 100MG CAPSULE PO SCH ×2 (09:59→21:56)
[2023-01-07] MEDS: risperiDONE 0.5 MG TAB PO SCH ×3 (09:59→23:29)
[2023-01-07] MEDS: SODIUM CHLORIDE 1 GM TAB PO SCH ×2 (09:59→21:56)
[2023-01-07] MEDS: VALPROIC ACID 250MG CAP PO SCH ×2 (10:00→21:55)
[2023-01-07] MEDS: VANICREAM MOISTURIZING SKIN CREAM 113GM TUBE TOP SCH ×2 (10:00→21:57)
[2023-01-07] MEDS: TRIAMCINOLONE ACET 0.1% CREAM 80GM TOP SCH ×2 (12:06→21:57)
[2023-01-07 17:10] VITALS: BP 129/73
[2023-01-07] MEDS: LOSARTAN 50MG TABLET PO SCH (21:00)
[2023-01-07] MEDS: QUEtiapine FUMARATE 50MG TAB PO SCH (21:00)
[2023-01-07] MEDS: SPIRONOLACTONE 25 MG TAB PO SCH (21:00)
[2023-01-08] MEDS: TRIAMCINOLONE ACET 0.1% CREAM 80GM TOP SCH ×2 (09:00→21:00)
[2023-01-08] MEDS: VANICREAM MOISTURIZING SKIN CREAM 113GM TUBE TOP SCH ×2 (09:00→21:00)
[2023-01-08] MEDS: DOCUSATE SODIUM 100MG CAPSULE PO SCH (09:49)
[2023-01-08] MEDS: risperiDONE 0.5 MG TAB PO SCH (09:50)
[2023-01-08] MEDS: VALPROIC ACID 250MG CAP PO SCH (09:51)
[2023-01-08] MEDS: SODIUM CHLORIDE 1 GM TAB PO SCH (09:51)
[2023-01-08] MEDS: VITAMIN D 1,000 INTERNATIONAL UNITS TABLET PO SCH (09:52)
[2023-01-08] MEDS: MIRALAX *UNIT DOSE* 17GM PACKET PO SCH (09:54)
[2023-01-08] MEDS ORDERED: NAPROXEN 250 MG TAB PO PRN (10:00)
[2023-01-08] MEDS ORDERED: ACETAMINOPHEN TAB 650MG DOSE (2X325MG) PO PRN (10:00)
[2023-01-08 18:18] VITALS: BP 135/77
[2023-01-09] MEDS: SODIUM CHLORIDE 1 GM TAB PO SCH ×3 (00:22→22:08)
[2023-01-09] MEDS: VALPROIC ACID 250MG CAP PO SCH ×3 (00:23→22:08)
[2023-01-09] MEDS: risperiDONE 0.5 MG TAB PO SCH ×3 (00:23→22:07)
[2023-01-09] MEDS: DOCUSATE SODIUM 100MG CAPSULE PO SCH ×3 (00:23→22:09)
[2023-01-09] MEDS: QUEtiapine FUMARATE 50MG TAB PO SCH ×2 (00:23→22:09)
[2023-01-09] MEDS: SPIRONOLACTONE 25 MG TAB PO SCH ×2 (00:24→22:09)
[2023-01-09] MEDS: LOSARTAN 50MG TABLET PO SCH ×2 (00:49→22:08)
[2023-01-09 06:29] VITALS: BP 150/69
[2023-01-09 07:48] LABS: VALPROIC ACID (DEPAKOTE) 75.1 UG/ML (50.0-100.0)
[2023-01-09] MEDS: VANICREAM MOISTURIZING SKIN CREAM 113GM TUBE TOP SCH ×2 (09:00→21:00)
[2023-01-09] MEDS: TRIAMCINOLONE ACET 0.1% CREAM 80GM TOP SCH ×2 (09:00→21:00)
[2023-01-09] MEDS: MIRALAX *UNIT DOSE* 17GM PACKET PO SCH (09:44)
[2023-01-09] MEDS: VITAMIN D 1,000 INTERNATIONAL UNITS TABLET PO SCH (09:44)
[2023-01-09 10:20] LABS: ALBUMIN 3.3 G/DL (3.2-5.2); ALKALINE PHOSPHATASE 81 U/L (46-116); ALT/SGPT 23 U/L (7.0-40); AST/SGOT 18 U/L (<34); BILIRUBIN,TOTAL 1.4 MG/DL (0.3-1.2); BLOOD UREA NITROGEN 21 MG/DL (9-23); CALCIUM LEVEL 9.1 MG/DL (8.3-10.6); CARBON DIOXIDE LEVEL 29 MMOL/L (20-31); CHLORIDE LEVEL 100 MMOL/L (98-107); CREATININE FOR GFR 0.44 MG/DL (0.55-1.30); GLOMERULAR FILTRATION RATE > 60.0 (>45); GLUCOSE, FASTING 88 MG/DL (74-106); POTASSIUM SERUM 4.6 MMOL/L (3.5-5.1); SODIUM LEVEL 135 MMOL/L (136-145); TOTAL PROTEIN 6.3 G/DL (5.7-8.2)
[2023-01-09 10:49] LABS: BASO # 0.1 10^3/uL (0.0-0.2); BASO % 1.5 % (0.0-1.0); EOS # 0.3 10^3/uL (0.0-0.5); EOS % 4.2 % (0.0-3.0); HEMATOCRIT 36.3 % (36.0-47.0); HEMOGLOBIN 11.5 g/dl (12.0-15.5); LYMPH # 1.9 10^3/uL (1.5-5.0); LYMPH % 31.3 % (24.0-44.0); MEAN CORPUSCULAR VOLUME 88.5 fl (80.0-96.0); MONO # 0.6 10^3/uL (0.0-0.8); MONO % 9.6 % (2.0-8.0); NEUTROPHILS # 3.1 10^3/uL (1.5-8.5); NEUTROPHILS % 52.7 % (36.0-66.0); PLATELET COUNT, AUTOMATED 371 10^3/uL (150-450)
[2023-01-09 10:50] LABS: MEAN CORPUSCULAR HGB CONC 31.7 g/dl (32.0-36.5)
[2023-01-09 18:25] VITALS: BP 122/68
[2023-01-10 06:21] VITALS: BP 140/82
[2023-01-10] MEDS: MIRALAX *UNIT DOSE* 17GM PACKET PO SCH (09:00)
[2023-01-10] MEDS: VITAMIN D 1,000 INTERNATIONAL UNITS TABLET PO SCH (09:22)
[2023-01-10] MEDS: DOCUSATE SODIUM 100MG CAPSULE PO SCH ×2 (09:22→20:56)
[2023-01-10] MEDS: SODIUM CHLORIDE 1 GM TAB PO SCH ×2 (09:22→20:56)
[2023-01-10] MEDS: risperiDONE 0.5 MG TAB PO SCH ×2 (09:22→20:57)
[2023-01-10] MEDS: VALPROIC ACID 250MG CAP PO SCH ×2 (09:22→20:56)
[2023-01-10] MEDS: TRIAMCINOLONE ACET 0.1% CREAM 80GM TOP SCH (09:23)
[2023-01-10] MEDS: VANICREAM MOISTURIZING SKIN CREAM 113GM TUBE TOP SCH ×2 (09:23→20:58)
[2023-01-10] MEDS: LIDOCAINE 5% (LIDODERM) PATCH TD SCH (10:40)
[2023-01-10 18:05] VITALS: BP 132/77
[2023-01-10] MEDS: SPIRONOLACTONE 25 MG TAB PO SCH (20:56)
[2023-01-10] MEDS: QUEtiapine FUMARATE 50MG TAB PO SCH (20:57)
[2023-01-10] MEDS: LOSARTAN 50MG TABLET PO SCH (20:57)
[2023-01-10 21:00] VITALS: BP 158/92
[2023-01-10 23:05] VITALS: BP 115/64
[2023-01-11] MEDS: VANICREAM MOISTURIZING SKIN CREAM 113GM TUBE TOP SCH ×2 (09:00→21:00)
[2023-01-11] MEDS: LIDOCAINE 5% (LIDODERM) PATCH TD SCH (09:00)
[2023-01-11] MEDS: MIRALAX *UNIT DOSE* 17GM PACKET PO SCH (09:00)
[2023-01-11] MEDS: DOCUSATE SODIUM 100MG CAPSULE PO SCH ×2 (09:38→21:48)
[2023-01-11] MEDS: risperiDONE 0.5 MG TAB PO SCH ×2 (09:38→21:47)
[2023-01-11] MEDS: SODIUM CHLORIDE 1 GM TAB PO SCH ×2 (09:39→21:48)
[2023-01-11] MEDS: VITAMIN D 1,000 INTERNATIONAL UNITS TABLET PO SCH (09:39)
[2023-01-11] MEDS: VALPROIC ACID 250MG CAP PO SCH ×2 (14:28→21:48)
[2023-01-11 18:25] VITALS: BP 130/86
[2023-01-11] MEDS: LOSARTAN 50MG TABLET PO SCH (21:47)
[2023-01-11] MEDS: SPIRONOLACTONE 25 MG TAB PO SCH (21:48)
[2023-01-11] MEDS: QUEtiapine FUMARATE 50MG TAB PO SCH (21:48)
[2023-01-12] MEDS: diphenhydrAMINE 25MG CAP PO PRN (08:09)
[2023-01-12] MEDS: risperiDONE 0.5 MG TAB PO SCH (08:10)
[2023-01-12] MEDS: VALPROIC ACID 250MG CAP PO SCH (08:13)
[2023-01-12] MEDS: DOCUSATE SODIUM 100MG CAPSULE PO SCH (08:25)
[2023-01-12] MEDS: LIDOCAINE 5% (LIDODERM) PATCH TD SCH (08:25)
[2023-01-12] MEDS: VITAMIN D 1,000 INTERNATIONAL UNITS TABLET PO SCH (08:25)
[2023-01-12] MEDS: SODIUM CHLORIDE 1 GM TAB PO SCH (08:25)
[2023-01-12] MEDS: MIRALAX *UNIT DOSE* 17GM PACKET PO SCH (08:25)
[2023-01-12] MEDS: VANICREAM MOISTURIZING SKIN CREAM 113GM TUBE TOP SCH ×2 (08:25→21:00)
[2023-01-13] MEDS: SPIRONOLACTONE 25 MG TAB PO SCH ×2 (02:32→21:00)
[2023-01-13] MEDS: DOCUSATE SODIUM 100MG CAPSULE PO SCH ×3 (02:32→23:36)
[2023-01-13] MEDS: SODIUM CHLORIDE 1 GM TAB PO SCH ×3 (02:32→23:34)
[2023-01-13] MEDS: QUEtiapine FUMARATE 50MG TAB PO SCH ×2 (02:33→23:36)
[2023-01-13] MEDS: VALPROIC ACID 250MG CAP PO SCH ×3 (02:33→21:00)
[2023-01-13] MEDS: diphenhydrAMINE 25MG CAP PO PRN (02:33)
[2023-01-13] MEDS: LOSARTAN 50MG TABLET PO SCH ×2 (02:33→23:35)
[2023-01-13] MEDS: risperiDONE 0.5 MG TAB PO SCH ×3 (02:34→23:36)
[2023-01-13] MEDS: VANICREAM MOISTURIZING SKIN CREAM 113GM TUBE TOP SCH ×2 (09:00→21:00)
[2023-01-13] MEDS: LIDOCAINE 5% (LIDODERM) PATCH TD SCH (09:00)
[2023-01-13] MEDS: MIRALAX *UNIT DOSE* 17GM PACKET PO SCH (09:00)
[2023-01-13] MEDS: VITAMIN D 1,000 INTERNATIONAL UNITS TABLET PO SCH (09:49)
[2023-01-13 16:10] VITALS: BP 130/72
[2023-01-13 23:35] VITALS: BP 157/88
[2023-01-14] MEDS: MIRALAX *UNIT DOSE* 17GM PACKET PO SCH (09:00)
[2023-01-14] MEDS: VANICREAM MOISTURIZING SKIN CREAM 113GM TUBE TOP SCH (09:00)
[2023-01-14] MEDS: SODIUM CHLORIDE 1 GM TAB PO SCH (09:00)
[2023-01-14] MEDS: VALPROIC ACID 250MG CAP PO SCH (09:00)
[2023-01-14] MEDS: LIDOCAINE 5% (LIDODERM) PATCH TD SCH (09:00)
[2023-01-14] MEDS: risperiDONE 0.5 MG TAB PO SCH (09:37)
[2023-01-14] MEDS: DOCUSATE SODIUM 100MG CAPSULE PO SCH (09:37)
[2023-01-14] MEDS: VITAMIN D 1,000 INTERNATIONAL UNITS TABLET PO SCH (09:37)
[2023-01-14] MEDS ORDERED: QUET50TA4 PO (10:07)
[2023-01-14] MEDS ORDERED: LIDO5TD TD (10:07)
[2023-01-14] MEDS ORDERED: DEPA1TAB3 PO (10:07)
[2023-01-14] MEDS ORDERED: RISP-7 PO (10:07)
[2023-01-14] MEDS ORDERED: DEPA250T32 PO (10:08)
[2023-01-14 12:01] LABS: BLOOD UREA NITROGEN 27 MG/DL (9-23); CALCIUM LEVEL 9.1 MG/DL (8.3-10.6); CARBON DIOXIDE LEVEL 31 MMOL/L (20-31); CHLORIDE LEVEL 97 MMOL/L (98-107); CREATININE FOR GFR 0.48 MG/DL (0.55-1.30); GLOMERULAR FILTRATION RATE > 60.0 (>45); GLUCOSE, FASTING 78 MG/DL (74-106); POTASSIUM SERUM 4.5 MMOL/L (3.5-5.1); SODIUM LEVEL 134 MMOL/L (136-145)
[2023-01-14] MEDS ORDERED: SPIR-10 PO (14:17)
[2023-01-14] MEDS ORDERED: SODI1TAB6 PO (14:17)
[2023-01-14] MEDS ORDERED: LOSA100T46 PO (14:17)
== END 2023-01-14 15:27 | disposition home or self-care (01) | DRG 885 ==
LOC: M PSY 16:51 → EEVIPCON 16:51
PROVIDERS: ADMIT Student in an Organized Health Care Education/Training Program; ATTEND Student in an Organized Health Care Education/Training Program
DX: F31.9 Bipolar disorder, unspecified (principal); G93.41 Metabolic encephalopathy; L97.919 Non-pressure chronic ulcer of unspecified part of right lower leg with unspecified severity; E87.1 Hypo-osmolality and hyponatremia; L97.929 Non-pressure chronic ulcer of unspecified part of left lower leg with unspecified severity; F03.90 Unspecified dementia, unspecified severity, without behavioral disturbance, psychotic disturbance, mood disturbance, and anxiety; L30.9 Dermatitis, unspecified; L29.9 Pruritus, unspecified; K43.9 Ventral hernia without obstruction or gangrene; E78.5 Hyperlipidemia, unspecified; J44.9 Chronic obstructive pulmonary disease, unspecified; I10 Essential (primary) hypertension; R26.89 Other abnormalities of gait and mobility; R73.03 Prediabetes; Z86.718 Personal history of other venous thrombosis and embolism; S72.91XG Unspecified fracture of right femur, subsequent encounter for closed fracture with delayed healing; S32.009G Unspecified fracture of unspecified lumbar vertebra, subsequent encounter for fracture with delayed healing; R41.82 Altered mental status, unspecified; M54.9 Dorsalgia, unspecified; Z88.0 Allergy status to penicillin; Z88.8 Allergy status to other drugs, medicaments and biological substances; Z91.018 Allergy to other foods; Z79.899 Other long term (current) drug therapy; Z90.49 Acquired absence of other specified parts of digestive tract; K59.00 Constipation, unspecified

== ENCOUNTER 2023-02-03 00:30 | Inpatient (IN) | payer MEDICARE, MEDICAID ==
[~2023-02-03] VITALS: Ht 170.2 cm; Wt 55.7 kg
[~2023-02-03 00:30] MED LIST changes: +ALBU8.5H INH; +DEPA250T32 PO; +LIDO5TD TD; +MIRA1POW3 PO; +SODI1TAB6 PO; +TRIA1CR80 TOP; +VALP1CAP2 PO; +VANI1CRE5 TOP; +VITAD1000T PO
[2023-02-03 01:59] LABS: HEMATOCRIT 32.6 % (36.0-47.0); HEMOGLOBIN 10.7 g/dl (12.0-15.5); MEAN CORPUSCULAR HEMOGLOBIN 28.2 pg (27.0-33.0); MEAN CORPUSCULAR HGB CONC 32.8 g/dl (32.0-36.5); PLATELET COUNT, AUTOMATED 334 10^3/uL (150-450); RED BLOOD COUNT 3.79 10^6/uL (4.00-5.40); WHITE BLOOD COUNT 8.2 10^3/uL (4.0-10.0)
[2023-02-03 02:19] LABS: AMPHETAMINES LEVEL URINE NEGATIVE (NEGATIVE); BARBITURATES URINE NEGATIVE (NEGATIVE); BENZODIAZEPINES URINE NEGATIVE (NEGATIVE); COCAINE METABOLITE URINE NEGATIVE (NEGATIVE); METHADONE URINE NEGATIVE (NEGATIVE)
[2023-02-03 02:20] LABS: CANNABINOIDS URINE NEGATIVE (NEGATIVE); OPIATES URINE NEGATIVE (NEGATIVE); PHENCYCLIDINE URINE NEGATIVE (NEGATIVE)
[2023-02-03 02:22] LABS: ETHYL ALCOHOL (ETHANOL) 0.004 % (0.000-0.010)
[2023-02-03 02:23] LABS: ACETAMINOPHEN LEVEL < 2.0 UG/ML (10.0-20.0); SALICYLATE LEVEL < 3.0 MG/DL (<30)
[2023-02-03 02:24] LABS: ALBUMIN 3.2 G/DL (3.2-5.2); ALKALINE PHOSPHATASE 83 U/L (46-116); ALT/SGPT 18 U/L (7.0-40); AST/SGOT 21 U/L (<34); BILIRUBIN,DIRECT 0.3 MG/DL (<0.4); BILIRUBIN,TOTAL 0.8 MG/DL (0.3-1.2); BLOOD UREA NITROGEN 19 MG/DL (9-23); CALCIUM LEVEL 9.2 MG/DL (8.3-10.6); CARBON DIOXIDE LEVEL 27 MMOL/L (20-31); CHLORIDE LEVEL 98 MMOL/L (98-107); CREATININE FOR GFR 0.45 MG/DL (0.55-1.30); GLOMERULAR FILTRATION RATE > 60.0 (>45); GLUCOSE, FASTING 89 MG/DL (74-106); POTASSIUM SERUM 4.4 MMOL/L (3.5-5.1); SODIUM LEVEL 131 MMOL/L (136-145); TOTAL PROTEIN 6.1 G/DL (5.7-8.2)
[2023-02-03 02:26] LABS: THYROID STIMULATING HORMONE 4.914 uIU/ML (0.55-4.78)
[2023-02-03 05:17] LABS: VALPROIC ACID (DEPAKOTE) < 3.0 UG/ML (50.0-100.0)
[2023-02-03] MEDS ORDERED: risperiDONE 1 MG TAB PO ONE (06:05)
[2023-02-03] MEDS ORDERED: MED REC COMMENT (08:28)
[2023-02-03] MEDS ORDERED: HOME MED LIST COMPLETE! XX SCH (08:30)
[2023-02-03] MEDS: DIVALPROEX 500MG *ER* TAB PO ONE ×2 (13:30→15:23)
[2023-02-03] MEDS ORDERED: traZODone 50 MG TAB PO PRN (15:55)
[2023-02-03] MEDS ORDERED: IBUPROFEN 400MG TAB PO PRN (15:55)
[2023-02-03] MEDS ORDERED: MOM 30ML SUSPENSION UDC PO PRN (15:55)
[2023-02-03] MEDS ORDERED: MAALOX 30 ML SUSP *UDC PO PRN (15:55)
[2023-02-03] MEDS ORDERED: ALBUTEROL 90 MCG/ACT 8GM HFA INHALER INH PRN (15:55)
[2023-02-03] MEDS ORDERED: diphenhydrAMINE 25MG CAP PO PRN ×2 (15:55)
[2023-02-03] MEDS ORDERED: ACETAMINOPHEN TAB 650MG DOSE (2X325MG) PO PRN (15:55)
[2023-02-03 17:44] VITALS: BP 148/94
[2023-02-03 18:00] VITALS: BP 115/58
[2023-02-03] MEDS ORDERED: DIVALPROEX 500MG *ER* TAB PO SCH (21:00)
[2023-02-03] MEDS ORDERED: risperiDONE 0.5 MG TAB PO SCH ×2 (21:00)
[2023-02-03] MEDS: QUEtiapine FUMARATE 50MG TAB PO SCH (21:00)
[2023-02-03] MEDS: DIVALPROEX 250MG TAB PO SCH (22:06)
[2023-02-03] MEDS: DOCUSATE SODIUM 100MG CAPSULE PO SCH (22:06)
[2023-02-03] MEDS: SPIRONOLACTONE 25 MG TAB PO SCH (22:06)
[2023-02-03] MEDS: VANICREAM MOISTURIZING SKIN CREAM 113GM TUBE TOP SCH (22:08)
[2023-02-03] MEDS: TRIAMCINOLONE ACET 0.1% CREAM 80GM TOP SCH (22:08)
[2023-02-03] MEDS: LOSARTAN 50MG TABLET PO SCH (23:01)
[2023-02-04 06:26] VITALS: BP 146/84
[2023-02-04] MEDS: MIRALAX *UNIT DOSE* 17GM PACKET PO SCH (09:00)
[2023-02-04] MEDS: LIDOCAINE 5% (LIDODERM) PATCH TD SCH ×2 (09:00)
[2023-02-04] MEDS: DIVALPROEX 250MG TAB PO SCH ×2 (09:56→21:00)
[2023-02-04] MEDS: VITAMIN D 1,000 INTERNATIONAL UNITS TABLET PO SCH (09:56)
[2023-02-04] MEDS: DOCUSATE SODIUM 100MG CAPSULE PO SCH ×2 (09:58→22:00)
[2023-02-04] MEDS: risperiDONE 2 MG TAB PO SCH (09:58)
[2023-02-04] MEDS: TRIAMCINOLONE ACET 0.1% CREAM 80GM TOP SCH ×2 (10:22→21:00)
[2023-02-04] MEDS: VANICREAM MOISTURIZING SKIN CREAM 113GM TUBE TOP SCH ×2 (10:23→21:00)
[2023-02-04 16:07] VITALS: BP 143/82
[2023-02-04] MEDS: QUEtiapine FUMARATE 50MG TAB PO SCH (21:00)
[2023-02-04] MEDS: SPIRONOLACTONE 25 MG TAB PO SCH (22:01)
[2023-02-04 22:42] VITALS: BP 134/96
[2023-02-04] MEDS: LOSARTAN 50MG TABLET PO SCH (22:42)
[2023-02-05 06:39] VITALS: BP 145/87
[2023-02-05] MEDS: risperiDONE 2 MG TAB PO SCH (09:54)
[2023-02-05] MEDS: DOCUSATE SODIUM 100MG CAPSULE PO SCH (09:54)
[2023-02-05] MEDS: VITAMIN D 1,000 INTERNATIONAL UNITS TABLET PO SCH (09:54)
[2023-02-05] MEDS: DIVALPROEX 250MG TAB PO SCH ×2 (09:54→10:11)
[2023-02-05] MEDS: LIDOCAINE 5% (LIDODERM) PATCH TD SCH ×2 (10:11)
[2023-02-05] MEDS: MIRALAX *UNIT DOSE* 17GM PACKET PO SCH (10:11)
[2023-02-05] MEDS: VANICREAM MOISTURIZING SKIN CREAM 113GM TUBE TOP SCH (10:12)
[2023-02-05] MEDS: TRIAMCINOLONE ACET 0.1% CREAM 80GM TOP SCH (10:12)
[2023-02-05] MEDS ORDERED: QUET1TAB17 PO (10:59)
[2023-02-05] MEDS ORDERED: DEPA250T32 PO (10:59)
[2023-02-05] MEDS ORDERED: RISP-9 PO (10:59)
== END 2023-02-05 12:42 | disposition home or self-care (01) | DRG 885 ==
LOC: EDBD 00:30 → M ED 00:30 → M ED INP 15:54 → M PSY 17:19
PROVIDERS: ADMIT Student in an Organized Health Care Education/Training Program; ATTEND Student in an Organized Health Care Education/Training Program
DX: F31.9 Bipolar disorder, unspecified (principal); I10 Essential (primary) hypertension; R73.03 Prediabetes; F03.90 Unspecified dementia, unspecified severity, without behavioral disturbance, psychotic disturbance, mood disturbance, and anxiety; L30.9 Dermatitis, unspecified; Z79.899 Other long term (current) drug therapy; Z88.0 Allergy status to penicillin; Z88.8 Allergy status to other drugs, medicaments and biological substances; Z91.018 Allergy to other foods; Z74.1 Need for assistance with personal care; E78.5 Hyperlipidemia, unspecified; J44.9 Chronic obstructive pulmonary disease, unspecified; Z86.718 Personal history of other venous thrombosis and embolism; K43.9 Ventral hernia without obstruction or gangrene

== ENCOUNTER 2023-02-20 07:17 | Emergency (ER) | payer MEDICARE, MEDICAID ==
[~2023-02-20] VITALS: Ht 167.6 cm; Wt 64.1 kg
[~2023-02-20 07:17] MED LIST changes: +MED REC COMMENT; +RISP-9 PO
[2023-02-20] MEDS ORDERED: hydrOXYzine 50 MG TAB PO STA (07:37)
[2023-02-20] MEDS ORDERED: DIMETHICONE 2% OINTMENT(VANICREAM) 70GM TUBE TOP ONE (07:40)
[2023-02-20 08:09] LABS: BASO # 0.1 10^3/uL (0.0-0.2); BASO % 0.8 % (0.0-1.0); EOS # 0.3 10^3/uL (0.0-0.5); EOS % 3.7 % (0.0-3.0); HEMATOCRIT 31.4 % (36.0-47.0); HEMOGLOBIN 10.4 g/dl (12.0-15.5); LYMPH # 1.3 10^3/uL (1.5-5.0); LYMPH % 14.5 % (24.0-44.0); MEAN CORPUSCULAR HGB CONC 33.1 g/dl (32.0-36.5); MEAN CORPUSCULAR VOLUME 84.6 fl (80.0-96.0); MONO % 11.6 % (2.0-8.0); NEUTROPHILS # 6.1 10^3/uL (1.5-8.5); NEUTROPHILS % 68.8 % (36.0-66.0); PLATELET COUNT, AUTOMATED 326 10^3/uL (150-450); RED BLOOD COUNT 3.71 10^6/uL (4.00-5.40); WHITE BLOOD COUNT 8.9 10^3/uL (4.0-10.0)
[2023-02-20 08:30] LABS: ALBUMIN 3.3 G/DL (3.2-5.2); ALKALINE PHOSPHATASE 96 U/L (46-116); ALT/SGPT 16 U/L (7.0-40); AST/SGOT 14 U/L (<34); BILIRUBIN,TOTAL 0.9 MG/DL (0.3-1.2); BLOOD UREA NITROGEN 24 MG/DL (9-23); CALCIUM LEVEL 9.7 MG/DL (8.3-10.6); CARBON DIOXIDE LEVEL 30 MMOL/L (20-31); CHLORIDE LEVEL 92 MMOL/L (98-107); CREATININE FOR GFR 0.46 MG/DL (0.55-1.30); GLOMERULAR FILTRATION RATE > 60.0 (>45); GLUCOSE, FASTING 99 MG/DL (74-106); POTASSIUM SERUM 4.3 MMOL/L (3.5-5.1); SODIUM LEVEL 125 MMOL/L (136-145); TOTAL PROTEIN 6.3 G/DL (5.7-8.2)
[2023-02-20 08:48] LABS: ERYTHROCYTE SEDIMENTATION RATE 19 mm/hr (0-30)
[2023-02-20] MEDS ORDERED: HYDR-3363 PO (10:39)
[2023-02-20 11:54] VITALS: BP 148/77; TEMP 97.9; O2SAT 100
== END 2023-02-20 11:28 | disposition home or self-care (01) ==
LOC: M ED 07:17
DX: I87.332 Chronic venous hypertension (idiopathic) with ulcer and inflammation of left lower extremity (principal); T07.XXXA Unspecified multiple injuries, initial encounter; X58.XXXA Exposure to other specified factors, initial encounter; Y92.89 Other specified places as the place of occurrence of the external cause; Y93.89 Activity, other specified; Y99.8 Other external cause status; E78.00 Pure hypercholesterolemia, unspecified; Z88.0 Allergy status to penicillin; Z91.018 Allergy to other foods; Z79.899 Other long term (current) drug therapy; Z79.51 Long term (current) use of inhaled steroids

== ENCOUNTER → 2023-03-18 | Outpatient (CLI) | payer MEDICARE, MEDICAID ==
[~2023-03-18] MED LIST changes: +HYDR-3363 PO
== END ==
LOC: M SOG 08:05
PROVIDERS: ATTEND Physician Assistant
DX: Z53.9 Procedure and treatment not carried out, unspecified reason (principal)

== ENCOUNTER 2023-04-02 16:42 | Inpatient (IN) | payer MEDICARE, MEDICAID ==
[~2023-04-02] VITALS: Ht 167.6 cm; Wt 54.0 kg
[2023-04-02 19:03] LABS: BLOOD UREA NITROGEN 23 MG/DL (9-23); CALCIUM LEVEL 8.8 MG/DL (8.3-10.6); CARBON DIOXIDE LEVEL 29 MMOL/L (20-31); CHLORIDE LEVEL 93 MMOL/L (98-107); CREATININE FOR GFR 0.39 MG/DL (0.55-1.30); GLOMERULAR FILTRATION RATE > 60.0 (>45); GLUCOSE, FASTING 99 MG/DL (74-106); POTASSIUM SERUM 3.7 MMOL/L (3.5-5.1); SODIUM LEVEL 131 MMOL/L (136-145)
[2023-04-02 19:12] LABS: RSV AMPLIFICATION NEGATIVE (NEGATIVE)
[2023-04-02 19:14] LABS: BASO # 0.1 10^3/uL (0.0-0.2); BASO % 0.7 % (0.0-1.0); EOS # 0.3 10^3/uL (0.0-0.5); EOS % 3.1 % (0.0-3.0); HEMATOCRIT 27.3 % (36.0-47.0); HEMOGLOBIN 8.9 g/dl (12.0-15.5); LYMPH # 1.4 10^3/uL (1.5-5.0); LYMPH % 17.6 % (24.0-44.0); MEAN CORPUSCULAR HEMOGLOBIN 27.4 pg (27.0-33.0); MEAN CORPUSCULAR HGB CONC 32.6 g/dl (32.0-36.5); MONO # 1.1 10^3/uL (0.0-0.8); MONO % 13.1 % (2.0-8.0); NEUTROPHILS # 5.3 10^3/uL (1.5-8.5); NEUTROPHILS % 64.6 % (36.0-66.0); PLATELET COUNT, AUTOMATED 350 10^3/uL (150-450); RED BLOOD COUNT 3.25 10^6/uL (4.00-5.40); WHITE BLOOD COUNT 8.2 10^3/uL (4.0-10.0)
[2023-04-02] MEDS ORDERED: MORPHINE 4 MG/ML 1ML VIAL IV ONE (19:55)
[2023-04-02] MEDS ORDERED: ONDANSETRON 4MG 2ML VIAL IV ONE (19:55)
[2023-04-03] MEDS ORDERED: UNRESOLVED CLARIFICATION ENTRY XX SCH (00:01)
[2023-04-03] MEDS ORDERED: QUEtiapine FUMARATE 25 MG TAB PO ONE (00:05)
[2023-04-03] MEDS ORDERED: risperiDONE 2 MG TAB PO ONE (00:05)
[2023-04-03] MEDS ORDERED: MORPHINE 4 MG/ML 1ML VIAL IV ONE (00:05)
[2023-04-03] MEDS ORDERED: LIDOCAINE 5% (LIDODERM) PATCH TD PRN (06:00)
[2023-04-03] MEDS ORDERED: DEXTROSE 50% 50ML SYRINGE IV PRN (06:10)
[2023-04-03] MEDS ORDERED: GLUCAGON INJ 1MG VIAL SC PRN (06:10)
[2023-04-03] MEDS ORDERED: GLUCOSE 4GM CHEW TABLET PO PRN (06:10)
[2023-04-03] MEDS ORDERED: INSULIN LISPRO (NovoLOG) PER UNIT SC SCH ×2 (07:30→21:00)
[2023-04-03] MEDS ORDERED: MED REC IN PROGRESS XX SCH (07:55)
[2023-04-03] MEDS: VANICREAM MOISTURIZING SKIN CREAM 113GM TUBE TOP SCH (08:00)
[2023-04-03] MEDS: ENOXAPARIN 40MG/0.4ML SYRINGE (J1650 PER 10MG) SC SCH (08:04)
[2023-04-03] MEDS: ACETAMINOPHEN TAB 650MG DOSE (2X325MG) PO PRN ×2 (08:50→20:44)
[2023-04-03] MEDS: FERROUS SULFATE 325MG TAB PO SCH (09:00)
[2023-04-03] MEDS: CLOBETASOL PROPIONATE EMOLLIENT 0.05% CR 60 GM TOP SCH ×2 (09:00→20:45)
[2023-04-03] MEDS ORDERED: HYDR-3363 PO (09:28)
[2023-04-03] MEDS ORDERED: SPIR-10 PO (09:28)
[2023-04-03] MEDS ORDERED: RISP-7 PO (09:28)
[2023-04-03] MEDS ORDERED: HYDR12.55 PO (09:28)
[2023-04-03] MEDS ORDERED: LOSA100T46 PO (09:28)
[2023-04-03] MEDS ORDERED: HOME MED LIST COMPLETE! XX SCH (09:30)
[2023-04-03] MEDS ORDERED: ALBUTEROL SULFATE 2.5MG/0.5ML INH NEB SOLN NEB PRN (09:55)
[2023-04-03 12:12] LABS: BASO # 0.1 10^3/uL (0.0-0.2); BASO % 0.8 % (0.0-1.0); EOS # 0.3 10^3/uL (0.0-0.5); EOS % 3.2 % (0.0-3.0); HEMATOCRIT 27.3 % (36.0-47.0); HEMOGLOBIN 8.7 g/dl (12.0-15.5); LYMPH # 1.5 10^3/uL (1.5-5.0); LYMPH % 17.5 % (24.0-44.0); MEAN CORPUSCULAR HEMOGLOBIN 27.1 pg (27.0-33.0); MEAN CORPUSCULAR HGB CONC 31.9 g/dl (32.0-36.5); MONO # 1.1 10^3/uL (0.0-0.8); MONO % 12.7 % (2.0-8.0); NEUTROPHILS # 5.7 10^3/uL (1.5-8.5); NEUTROPHILS % 65.1 % (36.0-66.0); PLATELET COUNT, AUTOMATED 314 10^3/uL (150-450); RED BLOOD COUNT 3.21 10^6/uL (4.00-5.40); WHITE BLOOD COUNT 8.8 10^3/uL (4.0-10.0)
[2023-04-03 12:28] LABS: BLOOD UREA NITROGEN 15 MG/DL (9-23); CALCIUM LEVEL 8.5 MG/DL (8.3-10.6); CARBON DIOXIDE LEVEL 31 MMOL/L (20-31); CHLORIDE LEVEL 97 MMOL/L (98-107); CREATININE FOR GFR 0.39 MG/DL (0.55-1.30); GLOMERULAR FILTRATION RATE > 60.0 (>45); GLUCOSE, FASTING 109 MG/DL (74-106); IRON (FE) 21 UG/DL (50-170); PERCENT SATURATION 6.8 % (13.2-45.0); POTASSIUM SERUM 4.2 MMOL/L (3.5-5.1); SODIUM LEVEL 133 MMOL/L (136-145); TOTAL IRON BINDING CAPACITY 311 UG/DL (250-425)
[2023-04-03 12:30] LABS: FERRITIN 12.7 NG/ML (7.3-270.7)
[2023-04-03 12:31] LABS: FOLATE 19.02 NG/ML (>5.4); VITAMIN B12 LEVEL 820 PG/ML (211-911)
[2023-04-03] MEDS: risperiDONE 0.5 MG TAB PO SCH ×3 (12:42→21:00)
[2023-04-03] MEDS: LOSARTAN 50MG TABLET PO SCH (12:43)
[2023-04-03 14:05] LABS: THYROID STIMULATING HORMONE 5.623 uIU/ML (0.55-4.78)
[2023-04-03 14:17] LABS: PROCALCITONIN <0.04 ng/ml
[2023-04-03 14:30] VITALS: TEMP 97.9
[2023-04-04] MEDS: ACETAMINOPHEN TAB 650MG DOSE (2X325MG) PO PRN ×2 (00:48→09:40)
[2023-04-04 05:52] LABS: BASO # 0.1 10^3/uL (0.0-0.2); BASO % 0.6 % (0.0-1.0); EOS % 0.5 % (0.0-3.0); HEMOGLOBIN 8.6 g/dl (12.0-15.5); LYMPH # 0.9 10^3/uL (1.5-5.0); LYMPH % 10.8 % (24.0-44.0); MEAN CORPUSCULAR HEMOGLOBIN 27.2 pg (27.0-33.0); MEAN CORPUSCULAR HGB CONC 31.9 g/dl (32.0-36.5); MEAN CORPUSCULAR VOLUME 85.4 fl (80.0-96.0); MONO # 0.9 10^3/uL (0.0-0.8); MONO % 11.7 % (2.0-8.0); NEUTROPHILS # 6.1 10^3/uL (1.5-8.5); NEUTROPHILS % 75.4 % (36.0-66.0); PLATELET COUNT, AUTOMATED 336 10^3/uL (150-450); RED BLOOD COUNT 3.16 10^6/uL (4.00-5.40); WHITE BLOOD COUNT 8.1 10^3/uL (4.0-10.0)
[2023-04-04 06:27] VITALS: BP 112/74; TEMP 98.1; O2SAT 97
[2023-04-04 06:27] LABS: BLOOD UREA NITROGEN 24 MG/DL (9-23); CALCIUM LEVEL 8.3 MG/DL (8.3-10.6); CARBON DIOXIDE LEVEL 29 MMOL/L (20-31); CHLORIDE LEVEL 96 MMOL/L (98-107); CREATININE FOR GFR 0.51 MG/DL (0.55-1.30); GLOMERULAR FILTRATION RATE > 60.0 (>45); GLUCOSE, FASTING 118 MG/DL (74-106); POTASSIUM SERUM 4.9 MMOL/L (3.5-5.1); SODIUM LEVEL 132 MMOL/L (136-145)
[2023-04-04 08:03] LABS: MAGNESIUM LEVEL 1.5 MG/DL (1.8-2.4)
[2023-04-04] MEDS: MAGNESIUM OXIDE 400MG TAB (MAG-OX) PO SCH ×2 (09:00→20:51)
[2023-04-04] MEDS: ENOXAPARIN 40MG/0.4ML SYRINGE (J1650 PER 10MG) SC SCH (09:00)
[2023-04-04] MEDS: risperiDONE 0.5 MG TAB PO SCH ×2 (09:39→20:51)
[2023-04-04] MEDS: FERROUS SULFATE 325MG TAB PO SCH (09:40)
[2023-04-04] MEDS: LOSARTAN 50MG TABLET PO SCH (09:41)
[2023-04-04] MEDS: VANICREAM MOISTURIZING SKIN CREAM 113GM TUBE TOP SCH (09:41)
[2023-04-04] MEDS: CLOBETASOL PROPIONATE EMOLLIENT 0.05% CR 60 GM TOP SCH ×2 (09:41→20:52)
[2023-04-04] MEDS ORDERED: MAG SULF 1GM/100ML (MAG RUN) 1 GM in IV 1 EA IV SCH (11:00)
[2023-04-04 12:09] LABS: THYROID PEROXIDASE ANTIBODY > 1300.0 U/ML (<60.0)
[2023-04-04 14:00] VITALS: BP 110/72; TEMP 98.1; O2SAT 96
[2023-04-04 19:41] VITALS: BP 102/56; TEMP 98.1; O2SAT 96
[2023-04-05 06:44] LABS: BASO % 0.5 % (0.0-1.0); EOS # 0.1 10^3/uL (0.0-0.5); EOS % 0.7 % (0.0-3.0); HEMOGLOBIN 8.9 g/dl (12.0-15.5); LYMPH # 1.2 10^3/uL (1.5-5.0); LYMPH % 14.8 % (24.0-44.0); MEAN CORPUSCULAR HEMOGLOBIN 26.9 pg (27.0-33.0); MEAN CORPUSCULAR HGB CONC 31.8 g/dl (32.0-36.5); MEAN CORPUSCULAR VOLUME 84.6 fl (80.0-96.0); MONO # 0.7 10^3/uL (0.0-0.8); MONO % 9.1 % (2.0-8.0); NEUTROPHILS % 73.8 % (36.0-66.0); PLATELET COUNT, AUTOMATED 340 10^3/uL (150-450); RED BLOOD COUNT 3.31 10^6/uL (4.00-5.40); WHITE BLOOD COUNT 8.2 10^3/uL (4.0-10.0)
[2023-04-05 06:46] VITALS: BP 140/59; TEMP 97.9; O2SAT 96
[2023-04-05 07:09] LABS: BLOOD UREA NITROGEN 22 MG/DL (9-23); CALCIUM LEVEL 8.3 MG/DL (8.3-10.6); CARBON DIOXIDE LEVEL 29 MMOL/L (20-31); CHLORIDE LEVEL 94 MMOL/L (98-107); CREATININE FOR GFR 0.38 MG/DL (0.55-1.30); GLOMERULAR FILTRATION RATE > 60.0 (>45); GLUCOSE, FASTING 155 MG/DL (74-106); MAGNESIUM LEVEL 1.4 MG/DL (1.8-2.4); POTASSIUM SERUM 4.4 MMOL/L (3.5-5.1); SODIUM LEVEL 130 MMOL/L (136-145)
[2023-04-05] MEDS: ENOXAPARIN 40MG/0.4ML SYRINGE (J1650 PER 10MG) SC SCH (09:00)
[2023-04-05] MEDS: FERROUS SULFATE 325MG TAB PO SCH (10:24)
[2023-04-05] MEDS: LOSARTAN 50MG TABLET PO SCH (10:25)
[2023-04-05] MEDS: risperiDONE 0.5 MG TAB PO SCH ×2 (10:25→20:54)
[2023-04-05] MEDS: CLOBETASOL PROPIONATE EMOLLIENT 0.05% CR 60 GM TOP SCH ×2 (10:31→20:56)
[2023-04-05] MEDS: VANICREAM MOISTURIZING SKIN CREAM 113GM TUBE TOP SCH (10:31)
[2023-04-05 17:35] LABS: HEMOGLOBIN A1c 6.2 % (4.0-6.0)
[2023-04-05] MEDS: MAGNESIUM OXIDE 400MG TAB (MAG-OX) PO SCH ×2 (18:54→20:54)
[2023-04-05] MEDS ORDERED: diphenhydrAMINE 50MG/ML VIAL IM STA (23:57)
[2023-04-06] MEDS ORDERED: diphenhydrAMINE 50MG/ML VIAL IV STA (05:13)
[2023-04-06] MEDS: ENOXAPARIN 40MG/0.4ML SYRINGE (J1650 PER 10MG) SC SCH (09:00)
[2023-04-06 09:17] LABS: BLOOD UREA NITROGEN 18 MG/DL (9-23); CALCIUM LEVEL 8.4 MG/DL (8.3-10.6); CARBON DIOXIDE LEVEL 32 MMOL/L (20-31); CHLORIDE LEVEL 93 MMOL/L (98-107); GLOMERULAR FILTRATION RATE > 60.0 (>45); GLUCOSE, FASTING 160 MG/DL (74-106); MAGNESIUM LEVEL 1.5 MG/DL (1.8-2.4); POTASSIUM SERUM 4.8 MMOL/L (3.5-5.1); SODIUM LEVEL 130 MMOL/L (136-145)
[2023-04-06] MEDS: FERROUS SULFATE 325MG TAB PO SCH (09:47)
[2023-04-06] MEDS: MAGNESIUM OXIDE 400MG TAB (MAG-OX) PO SCH ×3 (09:47→21:06)
[2023-04-06] MEDS: risperiDONE 0.5 MG TAB PO SCH ×2 (09:52→21:04)
[2023-04-06] MEDS: LOSARTAN 50MG TABLET PO SCH (09:52)
[2023-04-06] MEDS: CLOBETASOL PROPIONATE EMOLLIENT 0.05% CR 60 GM TOP SCH ×2 (09:58→21:08)
[2023-04-06] MEDS: VANICREAM MOISTURIZING SKIN CREAM 113GM TUBE TOP SCH (09:59)
[2023-04-06] MEDS: ACETAMINOPHEN TAB 650MG DOSE (2X325MG) PO PRN (21:06)
[2023-04-06 21:28] VITALS: BP 131/85; TEMP 98.4; O2SAT 96
[2023-04-07 06:00] VITALS: BP 135/88; TEMP 98.4; O2SAT 96
[2023-04-07 06:07] LABS: HEMATOCRIT 28.5 % (36.0-47.0); MEAN CORPUSCULAR HGB CONC 31.6 g/dl (32.0-36.5); MEAN CORPUSCULAR VOLUME 85.6 fl (80.0-96.0); PLATELET COUNT, AUTOMATED 317 10^3/uL (150-450); RED BLOOD COUNT 3.33 10^6/uL (4.00-5.40); WHITE BLOOD COUNT 8.3 10^3/uL (4.0-10.0)
[2023-04-07 06:21] LABS: ALBUMIN 2.7 G/DL (3.2-5.2); ALKALINE PHOSPHATASE 81 U/L (46-116); ALT/SGPT 17 U/L (7.0-40); AST/SGOT 14 U/L (<34); BILIRUBIN,TOTAL 0.4 MG/DL (0.3-1.2); BLOOD UREA NITROGEN 21 MG/DL (9-23); CALCIUM LEVEL 8.7 MG/DL (8.3-10.6); CARBON DIOXIDE LEVEL 31 MMOL/L (20-31); CHLORIDE LEVEL 92 MMOL/L (98-107); CREATININE FOR GFR 0.42 MG/DL (0.55-1.30); GLOMERULAR FILTRATION RATE > 60.0 (>45); GLUCOSE, FASTING 103 MG/DL (74-106); MAGNESIUM LEVEL 1.5 MG/DL (1.8-2.4); POTASSIUM SERUM 4.7 MMOL/L (3.5-5.1); SODIUM LEVEL 129 MMOL/L (136-145); TOTAL PROTEIN 5.7 G/DL (5.7-8.2)
[2023-04-07] MEDS: MAGNESIUM OXIDE 400MG TAB (MAG-OX) PO SCH ×3 (08:41→21:30)
[2023-04-07] MEDS: risperiDONE 0.5 MG TAB PO SCH ×2 (08:41→21:30)
[2023-04-07] MEDS: FERROUS SULFATE 325MG TAB PO SCH (08:41)
[2023-04-07] MEDS: VANICREAM MOISTURIZING SKIN CREAM 113GM TUBE TOP SCH (08:42)
[2023-04-07] MEDS: ENOXAPARIN 40MG/0.4ML SYRINGE (J1650 PER 10MG) SC SCH (08:43)
[2023-04-07] MEDS: LOSARTAN 50MG TABLET PO SCH (08:43)
[2023-04-07] MEDS: CLOBETASOL PROPIONATE EMOLLIENT 0.05% CR 60 GM TOP SCH ×2 (08:43→21:31)
[2023-04-07] MEDS: ACETAMINOPHEN TAB 650MG DOSE (2X325MG) PO PRN (21:30)
[2023-04-08 05:54] VITALS: BP 134/92; TEMP 98.1; O2SAT 96
[2023-04-08 06:46] LABS: HEMATOCRIT 28.6 % (36.0-47.0); HEMOGLOBIN 9.3 g/dl (12.0-15.5); MEAN CORPUSCULAR HEMOGLOBIN 27.4 pg (27.0-33.0); MEAN CORPUSCULAR HGB CONC 32.5 g/dl (32.0-36.5); MEAN CORPUSCULAR VOLUME 84.4 fl (80.0-96.0); PLATELET COUNT, AUTOMATED 338 10^3/uL (150-450); RED BLOOD COUNT 3.39 10^6/uL (4.00-5.40); WHITE BLOOD COUNT 8.1 10^3/uL (4.0-10.0)
[2023-04-08 07:10] LABS: BLOOD UREA NITROGEN 20 MG/DL (9-23); CALCIUM LEVEL 8.6 MG/DL (8.3-10.6); CARBON DIOXIDE LEVEL 32 MMOL/L (20-31); CHLORIDE LEVEL 92 MMOL/L (98-107); CREATININE FOR GFR 0.37 MG/DL (0.55-1.30); GLOMERULAR FILTRATION RATE > 60.0 (>45); GLUCOSE, FASTING 108 MG/DL (74-106); POTASSIUM SERUM 4.5 MMOL/L (3.5-5.1); SODIUM LEVEL 128 MMOL/L (136-145)
[2023-04-08 08:16] VITALS: BP 134/92
[2023-04-08] MEDS: FERROUS SULFATE 325MG TAB PO SCH (08:16)
[2023-04-08] MEDS: MAGNESIUM OXIDE 400MG TAB (MAG-OX) PO SCH (08:16)
[2023-04-08] MEDS: risperiDONE 0.5 MG TAB PO SCH (08:16)
[2023-04-08] MEDS: LOSARTAN 50MG TABLET PO SCH (08:16)
[2023-04-08] MEDS: VANICREAM MOISTURIZING SKIN CREAM 113GM TUBE TOP SCH (08:17)
[2023-04-08] MEDS: ENOXAPARIN 40MG/0.4ML SYRINGE (J1650 PER 10MG) SC SCH (08:17)
[2023-04-08] MEDS: CLOBETASOL PROPIONATE EMOLLIENT 0.05% CR 60 GM TOP SCH (08:17)
[2023-04-08] MEDS ORDERED: CLOB5CR TOP (11:32)
[2023-04-08] MEDS ORDERED: MAGN400T2 PO (11:32)
[2023-04-08] MEDS ORDERED: VANI1CRE5 TOP (11:32)
[2023-04-08] MEDS ORDERED: ACET1TAB55 PO (12:16)
[2023-04-08] MEDS ORDERED: FERR1TAB8 PO (12:16)
[2023-04-08] MEDS ORDERED: ATOR40TA75 PO (12:25)
[2023-04-08] MEDS ORDERED: ASPI81TA26 PO (12:25)
[2023-04-08] MEDS ORDERED: PANT40TA29 PO (12:26)
== END 2023-04-08 14:05 | disposition home health service (06) | DRG 184 ==
LOC: M ED 16:42 → M ED INP 04-03 02:58 → ENRESERV 04-03 09:10 → M MS5PR 04-03 10:30
PROVIDERS: ADMIT Family Medicine; ATTEND Internal Medicine
DX: S22.42XA Multiple fractures of ribs, left side, initial encounter for closed fracture (principal); E87.1 Hypo-osmolality and hyponatremia; G93.49 Other encephalopathy; M80.051A Age-related osteoporosis with current pathological fracture, right femur, initial encounter for fracture; L30.9 Dermatitis, unspecified; F03.90 Unspecified dementia, unspecified severity, without behavioral disturbance, psychotic disturbance, mood disturbance, and anxiety; G43.909 Migraine, unspecified, not intractable, without status migrainosus; E11.51 Type 2 diabetes mellitus with diabetic peripheral angiopathy without gangrene; E78.5 Hyperlipidemia, unspecified; I10 Essential (primary) hypertension; J44.9 Chronic obstructive pulmonary disease, unspecified; K21.9 Gastro-esophageal reflux disease without esophagitis; F41.9 Anxiety disorder, unspecified; F25.0 Schizoaffective disorder, bipolar type; E06.3 Autoimmune thyroiditis; R32 Unspecified urinary incontinence; E83.42 Hypomagnesemia; K59.00 Constipation, unspecified; R26.89 Other abnormalities of gait and mobility; I87.2 Venous insufficiency (chronic) (peripheral); R53.81 Other malaise; D50.9 Iron deficiency anemia, unspecified; L85.3 Xerosis cutis; Z86.718 Personal history of other venous thrombosis and embolism; Z98.41 Cataract extraction status, right eye; Z98.42 Cataract extraction status, left eye; Z90.49 Acquired absence of other specified parts of digestive tract; Z87.891 Personal history of nicotine dependence; R29.6 Repeated falls; W19.XXXA Unspecified fall, initial encounter; Y92.009 Unspecified place in unspecified non-institutional (private) residence as the place of occurrence of the external cause; Y93.9 Activity, unspecified; Y99.8 Other external cause status; Z79.899 Other long term (current) drug therapy; Z88.0 Allergy status to penicillin; Z88.8 Allergy status to other drugs, medicaments and biological substances; Z91.018 Allergy to other foods

== ENCOUNTER → 2023-04-16 | Outpatient (REF) | payer MEDICAID, MEDICARE ==
[~2023-04-16] MED LIST changes: +ATOR40TA75 PO; +CLOB5CR TOP; +FERR1TAB8 PO; +PANT40TA29 PO
[2023-04-16 17:56] LABS: CREATININE, URINE 24.6 MG/DL; MAU/CREAT RATIO 77.2 MCG/MG (0.0-30.0)
== END ==
LOC: M LAB REF 16:56
PROVIDERS: ATTEND Nurse Practitioner Family
DX: E11.65 Type 2 diabetes mellitus with hyperglycemia (principal)

== ENCOUNTER 2023-04-30 18:13 | Emergency (ER) | payer MEDICARE, MEDICAID ==
[~2023-04-30] VITALS: Ht 175.3 cm; Wt 142.0 kg
[2023-05-01 01:22] LABS: HEMATOCRIT 35.4 % (36.0-47.0); HEMOGLOBIN 11.4 g/dl (12.0-15.5); MEAN CORPUSCULAR HEMOGLOBIN 26.9 pg (27.0-33.0); MEAN CORPUSCULAR HGB CONC 32.2 g/dl (32.0-36.5); MEAN CORPUSCULAR VOLUME 83.5 fl (80.0-96.0); PLATELET COUNT, AUTOMATED 286 10^3/uL (150-450); RED BLOOD COUNT 4.24 10^6/uL (4.00-5.40); WHITE BLOOD COUNT 9.1 10^3/uL (4.0-10.0)
[2023-05-01 01:31] LABS: AMPHETAMINES LEVEL URINE NEGATIVE (NEGATIVE); BARBITURATES URINE NEGATIVE (NEGATIVE); BENZODIAZEPINES URINE NEGATIVE (NEGATIVE); COCAINE METABOLITE URINE NEGATIVE (NEGATIVE); METHADONE URINE NEGATIVE (NEGATIVE); OPIATES URINE NEGATIVE (NEGATIVE); PHENCYCLIDINE URINE NEGATIVE (NEGATIVE)
[2023-05-01 01:32] LABS: CANNABINOIDS URINE NEGATIVE (NEGATIVE)
[2023-05-01 01:33] LABS: ETHYL ALCOHOL (ETHANOL) < 0.003 % (0.000-0.010)
[2023-05-01 01:34] LABS: ACETAMINOPHEN LEVEL < 2.0 UG/ML (10.0-20.0); SALICYLATE LEVEL < 3.0 MG/DL (<30)
[2023-05-01 01:35] LABS: ALBUMIN 3.5 G/DL (3.2-5.2); ALKALINE PHOSPHATASE 110 U/L (46-116); ALT/SGPT 17 U/L (7.0-40); AST/SGOT 16 U/L (<34); BILIRUBIN,DIRECT 0.3 MG/DL (<0.4); BILIRUBIN,TOTAL 0.7 MG/DL (0.3-1.2); BLOOD UREA NITROGEN 19 MG/DL (9-23); CALCIUM LEVEL 9.2 MG/DL (8.3-10.6); CARBON DIOXIDE LEVEL 29 MMOL/L (20-31); CHLORIDE LEVEL 96 MMOL/L (98-107); CREATININE FOR GFR 0.45 MG/DL (0.55-1.30); GLOMERULAR FILTRATION RATE > 60.0 (>45); GLUCOSE, FASTING 111 MG/DL (74-106); POTASSIUM SERUM 4.3 MMOL/L (3.5-5.1); SODIUM LEVEL 130 MMOL/L (136-145); TOTAL PROTEIN 6.6 G/DL (5.7-8.2)
[2023-05-01 01:37] LABS: THYROID STIMULATING HORMONE 4.474 uIU/ML (0.55-4.78)
[2023-05-01] MEDS ORDERED: HYDR12.55 (08:38)
[2023-05-01] MEDS ORDERED: SPIR-10 (08:38)
[2023-05-01] MEDS ORDERED: ACETAMINOPHEN 325 MG TAB PO PRN (08:40)
[2023-05-01] MEDS ORDERED: hydroCHLOROthiazide 12.5 MG CAPSULE PO SCH (09:00)
[2023-05-01] MEDS ORDERED: CLOBETASOL PROPIONATE EMOLLIENT 0.05% CR 60 GM TOP SCH ×2 (09:00→09:27)
[2023-05-01] MEDS ORDERED: ATORVASTATIN 20 MG TAB PO SCH (09:00)
[2023-05-01] MEDS ORDERED: risperiDONE 0.5 MG TAB PO SCH (09:00)
[2023-05-01] MEDS ORDERED: FERROUS SULFATE 325MG TAB PO SCH (09:00)
[2023-05-01] MEDS ORDERED: SPIRONOLACTONE 25 MG TAB PO SCH (09:00)
[2023-05-01] MEDS ORDERED: PANTOPRAZOLE 40MG TAB (PROTONIX) PO SCH (09:00)
[2023-05-01] MEDS ORDERED: LOSARTAN 50MG TABLET PO SCH (09:00)
[2023-05-01 13:16] VITALS: BP 156/96; TEMP 97.7; O2SAT 97
== END 2023-05-01 13:35 | disposition home or self-care (01) ==
LOC: M ED 18:13
DX: F31.9 Bipolar disorder, unspecified (principal); I44.4 Left anterior fascicular block; F20.9 Schizophrenia, unspecified; I10 Essential (primary) hypertension; J44.9 Chronic obstructive pulmonary disease, unspecified; G43.909 Migraine, unspecified, not intractable, without status migrainosus; Z87.891 Personal history of nicotine dependence; Z88.0 Allergy status to penicillin; Z91.018 Allergy to other foods; Z79.02 Long term (current) use of antithrombotics/antiplatelets; Z79.811 Long term (current) use of aromatase inhibitors; Z79.899 Other long term (current) drug therapy

== ENCOUNTER 2023-05-11 18:27 | Observation (INO) | payer MEDICARE, MEDICAID ==
[~2023-05-11] VITALS: Ht 170.2 cm; Wt 60.7 kg
[~2023-05-11 18:27] MED LIST changes: +HYDR12.55; +SPIR-10
[2023-05-11] MEDS ORDERED: LIDOCAINE 5% (LIDODERM) PATCH TD ONE (20:35)
[2023-05-11] MEDS ORDERED: ACETAMINOPHEN 325MG/10.15ML UDC PO ONE (20:35)
[2023-05-11 21:41] LABS: BASO # 0.1 10^3/uL (0.0-0.2); BASO % 0.9 % (0.0-1.0); EOS # 0.3 10^3/uL (0.0-0.5); EOS % 2.6 % (0.0-3.0); HEMATOCRIT 31.1 % (36.0-47.0); LYMPH # 2.5 10^3/uL (1.5-5.0); LYMPH % 21.7 % (24.0-44.0); MEAN CORPUSCULAR HEMOGLOBIN 27.1 pg (27.0-33.0); MEAN CORPUSCULAR HGB CONC 32.2 g/dl (32.0-36.5); MEAN CORPUSCULAR VOLUME 84.3 fl (80.0-96.0); MONO # 1.1 10^3/uL (0.0-0.8); MONO % 9.6 % (2.0-8.0); NEUTROPHILS # 7.3 10^3/uL (1.5-8.5); NEUTROPHILS % 64.2 % (36.0-66.0); PLATELET COUNT, AUTOMATED 260 10^3/uL (150-450); RED BLOOD COUNT 3.69 10^6/uL (4.00-5.40); WHITE BLOOD COUNT 11.4 10^3/uL (4.0-10.0)
[2023-05-11] MEDS ORDERED: risperiDONE 0.5 MG TAB PO ONE (22:00)
[2023-05-11 22:15] LABS: ALKALINE PHOSPHATASE 84 U/L (46-116); ALT/SGPT 21 U/L (7.0-40); AST/SGOT 22 U/L (<34); BILIRUBIN,DIRECT 0.1 MG/DL (<0.4); BILIRUBIN,TOTAL 0.3 MG/DL (0.3-1.2); BLOOD UREA NITROGEN 31 MG/DL (9-23); CALCIUM LEVEL 8.5 MG/DL (8.3-10.6); CARBON DIOXIDE LEVEL 30 MMOL/L (20-31); CHLORIDE LEVEL 96 MMOL/L (98-107); CREATININE FOR GFR 0.44 MG/DL (0.55-1.30); GLOMERULAR FILTRATION RATE > 60.0 (>45); GLUCOSE, FASTING 60 MG/DL (74-106); POTASSIUM SERUM 4.4 MMOL/L (3.5-5.1); SODIUM LEVEL 131 MMOL/L (136-145)
[2023-05-12] MEDS ORDERED: LevoFLOXacin IV 750 MG in IV 1 EA IV ONE (00:05)
[2023-05-12] MEDS ORDERED: DOXYCYCLINE HYCLATE 100MG TABLET PO ONE (01:40)
[2023-05-12] MEDS ORDERED: ACETAMINOPHEN TAB 650MG DOSE (2X325MG) PO PRN (01:40)
[2023-05-12] MEDS ORDERED: traMADol 50 MG TAB PO PRN (01:40)
[2023-05-12] MEDS ORDERED: DEXTROSE 50% 50ML SYRINGE IV PRN (04:15)
[2023-05-12] MEDS ORDERED: GLUCOSE 4GM CHEW TABLET PO PRN (04:15)
[2023-05-12] MEDS ORDERED: GLUCAGON INJ 1MG VIAL SC PRN (04:15)
[2023-05-12 04:22] VITALS: BP 132/83; TEMP 97.7; O2SAT 97
[2023-05-12] MEDS: CLINDAMYCIN 150MG CAPSULE PO SCH ×4 (05:10→23:43)
[2023-05-12 05:42] LABS: HEMATOCRIT 27.6 % (36.0-47.0); HEMOGLOBIN 8.7 g/dl (12.0-15.5); MEAN CORPUSCULAR HEMOGLOBIN 26.9 pg (27.0-33.0); MEAN CORPUSCULAR HGB CONC 31.5 g/dl (32.0-36.5); MEAN CORPUSCULAR VOLUME 85.4 fl (80.0-96.0); PLATELET COUNT, AUTOMATED 266 10^3/uL (150-450); RED BLOOD COUNT 3.23 10^6/uL (4.00-5.40); WHITE BLOOD COUNT 9.9 10^3/uL (4.0-10.0)
[2023-05-12 06:13] LABS: BLOOD UREA NITROGEN 24 MG/DL (9-23); CALCIUM LEVEL 8.1 MG/DL (8.3-10.6); CARBON DIOXIDE LEVEL 29 MMOL/L (20-31); CHLORIDE LEVEL 96 MMOL/L (98-107); CREATININE FOR GFR 0.39 MG/DL (0.55-1.30); GLOMERULAR FILTRATION RATE > 60.0 (>45); GLUCOSE, FASTING 162 MG/DL (74-106); MAGNESIUM LEVEL 1.3 MG/DL (1.8-2.4); SODIUM LEVEL 133 MMOL/L (136-145)
[2023-05-12 06:18] LABS: PROCALCITONIN <0.04 ng/ml
[2023-05-12] MEDS: INSULIN LISPRO (NovoLOG) PER UNIT SC SCH ×3 (07:30→16:25)
[2023-05-12] MEDS: MAG SULF 1GM/100ML (MAG RUN) 1 GM in IV 1 EA IV SCH ×2 (08:00→08:23)
[2023-05-12] MEDS: ENOXAPARIN 40MG/0.4ML SYRINGE (J1650 PER 10MG) SC SCH (09:00)
[2023-05-12] MEDS ORDERED: DOXYCYCLINE HYCLATE 100MG TABLET PO SCH (09:00)
[2023-05-12] MEDS ORDERED: CLOB0.0548 TOP (09:05)
[2023-05-12] MEDS ORDERED: ATOR40TA75 PO (09:05)
[2023-05-12] MEDS ORDERED: NAPR220C14 PO (09:07)
[2023-05-12] MEDS ORDERED: FERR325T3 PO (09:07)
[2023-05-12] MEDS ORDERED: PANT40TA29 PO (09:07)
[2023-05-12] MEDS ORDERED: HOME MED LIST COMPLETE! XX SCH (09:15)
[2023-05-12] MEDS: MAGNESIUM OXIDE 400MG TAB (MAG-OX) PO SCH ×2 (09:49→19:58)
[2023-05-12 11:50] LABS: IRON (FE) 17 UG/DL (50-170)
[2023-05-12 11:51] LABS: PERCENT SATURATION 5.6 % (13.2-45.0); TOTAL IRON BINDING CAPACITY 305 UG/DL (250-425)
[2023-05-12 11:53] LABS: FERRITIN 11.9 NG/ML (7.3-270.7); FOLATE 20.6 NG/ML (>5.4); VITAMIN B12 LEVEL 567 PG/ML (211-911)
[2023-05-12] MEDS: FERROUS SULFATE 325MG TAB PO SCH (13:15)
[2023-05-12] MEDS: ATORVASTATIN 20 MG TAB PO SCH (13:16)
[2023-05-12] MEDS: PANTOPRAZOLE 40MG TAB (PROTONIX) PO SCH (13:16)
[2023-05-12] MEDS: LOSARTAN 50MG TABLET PO SCH (13:19)
[2023-05-12 14:00] VITALS: BP 133/92; TEMP 98.2; O2SAT 98
[2023-05-12] MEDS: risperiDONE 0.5 MG TAB PO SCH (19:57)
[2023-05-12] MEDS ORDERED: INSULIN LISPRO (NovoLOG) PER UNIT SC SCH (21:00)
[2023-05-12 22:00] VITALS: BP 158/93; TEMP 97.7; O2SAT 98
[2023-05-13] MEDS ORDERED: DIMETHICONE 2% OINTMENT(VANICREAM) 70GM TUBE TOP PRN (01:45)
[2023-05-13] MEDS: CLINDAMYCIN 150MG CAPSULE PO SCH (04:34)
[2023-05-13 07:32] LABS: BASO # 0.1 10^3/uL (0.0-0.2); BASO % 0.7 % (0.0-1.0); EOS # 0.2 10^3/uL (0.0-0.5); EOS % 2.7 % (0.0-3.0); HEMATOCRIT 26.3 % (36.0-47.0); HEMOGLOBIN 8.6 g/dl (12.0-15.5); LYMPH # 1.6 10^3/uL (1.5-5.0); LYMPH % 17.9 % (24.0-44.0); MEAN CORPUSCULAR HEMOGLOBIN 27.3 pg (27.0-33.0); MEAN CORPUSCULAR HGB CONC 32.7 g/dl (32.0-36.5); MEAN CORPUSCULAR VOLUME 83.5 fl (80.0-96.0); MONO % 10.9 % (2.0-8.0); PLATELET COUNT, AUTOMATED 286 10^3/uL (150-450); RED BLOOD COUNT 3.15 10^6/uL (4.00-5.40)
[2023-05-13 07:59] LABS: BLOOD UREA NITROGEN 23 MG/DL (9-23); CALCIUM LEVEL 7.9 MG/DL (8.3-10.6); CARBON DIOXIDE LEVEL 29 MMOL/L (20-31); CHLORIDE LEVEL 96 MMOL/L (98-107); CREATININE FOR GFR 0.39 MG/DL (0.55-1.30); GLOMERULAR FILTRATION RATE > 60.0 (>45); GLUCOSE, FASTING 116 MG/DL (74-106); MAGNESIUM LEVEL 1.4 MG/DL (1.8-2.4); POTASSIUM SERUM 4.5 MMOL/L (3.5-5.1); SODIUM LEVEL 129 MMOL/L (136-145)
[2023-05-13] MEDS: ENOXAPARIN 40MG/0.4ML SYRINGE (J1650 PER 10MG) SC SCH (09:00)
[2023-05-13] MEDS: INSULIN LISPRO (NovoLOG) PER UNIT SC SCH ×2 (09:33→11:00)
[2023-05-13] MEDS: LOSARTAN 50MG TABLET PO SCH (09:34)
[2023-05-13] MEDS: PANTOPRAZOLE 40MG TAB (PROTONIX) PO SCH (09:35)
[2023-05-13] MEDS: ATORVASTATIN 20 MG TAB PO SCH (09:35)
[2023-05-13] MEDS: MAGNESIUM OXIDE 400MG TAB (MAG-OX) PO SCH ×3 (09:35→21:25)
[2023-05-13] MEDS: risperiDONE 0.5 MG TAB PO SCH ×2 (09:35→21:24)
[2023-05-13] MEDS: predniSONE 20 MG TAB PO SCH (09:35)
[2023-05-13] MEDS: FERROUS SULFATE 325MG TAB PO SCH ×2 (09:35→09:38)
[2023-05-13 11:20] LABS: CORTISOL BASELINE 9.8 UG/DL (4.3-22.4)
[2023-05-13 11:24] LABS: FREE T4 0.98 NG/DL (0.89-1.76); THYROID STIMULATING HORMONE 5.385 uIU/ML (0.55-4.78)
[2023-05-13 11:29] LABS: OSMOLALITY SERUM 276 MOSM/KG (280-301)
[2023-05-13 11:47] LABS: HEMOGLOBIN A1c 5.6 % (4.0-6.0)
[2023-05-13 21:00] VITALS: BP 140/78; TEMP 98.1; O2SAT 96
[2023-05-14 06:12] LABS: BASO % 0.3 % (0.0-1.0); EOS # 0.1 10^3/uL (0.0-0.5); EOS % 0.5 % (0.0-3.0); HEMATOCRIT 27.1 % (36.0-47.0); HEMOGLOBIN 8.8 g/dl (12.0-15.5); LYMPH # 1.8 10^3/uL (1.5-5.0); LYMPH % 18.1 % (24.0-44.0); MEAN CORPUSCULAR HEMOGLOBIN 26.9 pg (27.0-33.0); MEAN CORPUSCULAR HGB CONC 32.5 g/dl (32.0-36.5); MEAN CORPUSCULAR VOLUME 82.9 fl (80.0-96.0); MONO # 0.9 10^3/uL (0.0-0.8); MONO % 9.7 % (2.0-8.0); NEUTROPHILS # 6.8 10^3/uL (1.5-8.5); NEUTROPHILS % 70.6 % (36.0-66.0); PLATELET COUNT, AUTOMATED 359 10^3/uL (150-450); RED BLOOD COUNT 3.27 10^6/uL (4.00-5.40); WHITE BLOOD COUNT 9.7 10^3/uL (4.0-10.0)
[2023-05-14 06:42] LABS: BLOOD UREA NITROGEN 25 MG/DL (9-23); CARBON DIOXIDE LEVEL 28 MMOL/L (20-31); CHLORIDE LEVEL 94 MMOL/L (98-107); CREATININE FOR GFR 0.42 MG/DL (0.55-1.30); GLOMERULAR FILTRATION RATE > 60.0 (>45); GLUCOSE, FASTING 199 MG/DL (74-106); MAGNESIUM LEVEL 1.4 MG/DL (1.8-2.4); POTASSIUM SERUM 4.6 MMOL/L (3.5-5.1); SODIUM LEVEL 129 MMOL/L (136-145)
[2023-05-14] MEDS ORDERED: NS 1,000 ML IV SCH (06:50)
[2023-05-14] MEDS ORDERED: MAG SULF 1GM/100ML (MAG RUN) 1 GM in IV 1 EA IV SCH (08:00)
[2023-05-14] MEDS: ENOXAPARIN 40MG/0.4ML SYRINGE (J1650 PER 10MG) SC SCH (09:00)
[2023-05-14] MEDS: ATORVASTATIN 20 MG TAB PO SCH (09:54)
[2023-05-14] MEDS: DOCUSATE SODIUM 100MG CAPSULE PO SCH ×2 (09:54→21:00)
[2023-05-14] MEDS: risperiDONE 0.5 MG TAB PO SCH ×2 (09:54→21:00)
[2023-05-14 09:55] VITALS: BP 138/79
[2023-05-14] MEDS: MAGNESIUM OXIDE 400MG TAB (MAG-OX) PO SCH ×3 (09:55→20:57)
[2023-05-14] MEDS: predniSONE 20 MG TAB PO SCH (09:55)
[2023-05-14] MEDS: PANTOPRAZOLE 40MG TAB (PROTONIX) PO SCH (09:55)
[2023-05-14] MEDS: LOSARTAN 50MG TABLET PO SCH (09:55)
[2023-05-14] MEDS: oxyBUTYnin 5 MG TAB PO SCH ×3 (09:55→20:57)
[2023-05-14] MEDS: FERROUS SULFATE 325MG TAB PO SCH (09:55)
[2023-05-14 14:00] VITALS: BP 114/64; TEMP 97.9; O2SAT 97
[2023-05-14 16:59] LABS: BLOOD UREA NITROGEN 22 MG/DL (9-23); CALCIUM LEVEL 8.2 MG/DL (8.3-10.6); CARBON DIOXIDE LEVEL 30 MMOL/L (20-31); CHLORIDE LEVEL 98 MMOL/L (98-107); CREATININE FOR GFR 0.46 MG/DL (0.55-1.30); GLOMERULAR FILTRATION RATE > 60.0 (>45); GLUCOSE, FASTING 268 MG/DL (74-106); POTASSIUM SERUM 4.5 MMOL/L (3.5-5.1); SODIUM LEVEL 132 MMOL/L (136-145)
[2023-05-15 06:00] VITALS: BP 160/92; TEMP 97.8; O2SAT 92
[2023-05-15] MEDS ORDERED: predniSONE 20 MG TAB PO SCH (09:00)
[2023-05-15] MEDS: ENOXAPARIN 40MG/0.4ML SYRINGE (J1650 PER 10MG) SC SCH (09:00)
[2023-05-15] MEDS: DOCUSATE SODIUM 100MG CAPSULE PO SCH (09:18)
[2023-05-15] MEDS: risperiDONE 0.5 MG TAB PO SCH (09:20)
[2023-05-15] MEDS: FERROUS SULFATE 325MG TAB PO SCH (09:20)
[2023-05-15] MEDS: LOSARTAN 50MG TABLET PO SCH (09:20)
[2023-05-15] MEDS: ATORVASTATIN 20 MG TAB PO SCH (09:20)
[2023-05-15] MEDS: oxyBUTYnin 5 MG TAB PO SCH (09:20)
[2023-05-15] MEDS: PANTOPRAZOLE 40MG TAB (PROTONIX) PO SCH (09:20)
[2023-05-15] MEDS: MAGNESIUM OXIDE 400MG TAB (MAG-OX) PO SCH (09:20)
[2023-05-15] MEDS ORDERED: PRED10TA2 PO (10:03)
[2023-05-15] MEDS ORDERED: COLA100C5 PO (10:03)
[2023-05-15] MEDS ORDERED: RISP-7 PO (10:03)
[2023-05-15] MEDS ORDERED: MAGN400T2 PO (10:03)
[2023-05-15] MEDS ORDERED: OXYB5TAB10 PO (10:03)
[2023-05-15 14:00] VITALS: BP 152/94; TEMP 98.1; O2SAT 96
== END 2023-05-15 16:40 | disposition home health service (06) ==
LOC: M ED 18:27 → CMPBEDREQ 05-12 01:07 → M MSPAV 05-12 01:39 → M ED INP 05-12 01:39 → M MSPAV 05-12 03:55
PROVIDERS: ADMIT Internal Medicine; ATTEND Internal Medicine
DX: L53.9 Erythematous condition, unspecified (principal); L25.9 Unspecified contact dermatitis, unspecified cause; I87.8 Other specified disorders of veins; F25.0 Schizoaffective disorder, bipolar type; R41.9 Unspecified symptoms and signs involving cognitive functions and awareness; E87.1 Hypo-osmolality and hyponatremia; E11.649 Type 2 diabetes mellitus with hypoglycemia without coma; Z91.199 Patient's noncompliance with other medical treatment and regimen due to unspecified reason; I73.9 Peripheral vascular disease, unspecified; M79.604 Pain in right leg; M79.605 Pain in left leg; M79.601 Pain in right arm; M79.602 Pain in left arm; I10 Essential (primary) hypertension; D50.9 Iron deficiency anemia, unspecified; J44.9 Chronic obstructive pulmonary disease, unspecified; K21.9 Gastro-esophageal reflux disease without esophagitis; E03.9 Hypothyroidism, unspecified; E78.5 Hyperlipidemia, unspecified; M81.0 Age-related osteoporosis without current pathological fracture; S72.001G Fracture of unspecified part of neck of right femur, subsequent encounter for closed fracture with delayed healing; Z87.891 Personal history of nicotine dependence; Z88.0 Allergy status to penicillin; Z88.8 Allergy status to other drugs, medicaments and biological substances; Z91.018 Allergy to other foods; Z79.899 Other long term (current) drug therapy
CPT/HCPCS: 36415; 71045; 72192; 73700; 74018; 80048; 80076; 81001; 82533; 82607; 82728; 82746; 83036; 83550; 83735; 83930; 84145; 84439; 84443; 85025; 85027; 86140; 87040; 87086; 87486; 87581; 87633; 87798; 93041; 93970; 94760; 97161; 97165; 97530; 97535; 99285; G0378; J7512

== ENCOUNTER 2023-05-26 01:43 | Emergency (ER) | payer MEDICARE, MEDICAID ==
[~2023-05-26] VITALS: Ht 167.6 cm; Wt 72.7 kg
[~2023-05-26 01:43] MED LIST changes: +CLOB0.0548 TOP; +FERR325T3 PO; +NAPR220C14 PO; +OXYB5TAB10 PO; +PRED10TA2 PO
[2023-05-26 01:55] VITALS: TEMP 97.1
[2023-05-26] MEDS ORDERED: hydrOXYzine 50 MG TAB PO ONE (02:40)
[2023-05-26 03:01] LABS: BASO # 0.1 10^3/uL (0.0-0.2); BASO % 0.5 % (0.0-1.0); EOS # 0.2 10^3/uL (0.0-0.5); EOS % 1.6 % (0.0-3.0); LYMPH # 2.3 10^3/uL (1.5-5.0); LYMPH % 17.3 % (24.0-44.0); MEAN CORPUSCULAR HGB CONC 31.7 g/dl (32.0-36.5); MEAN CORPUSCULAR VOLUME 85.2 fl (80.0-96.0); MONO # 1.5 10^3/uL (0.0-0.8); MONO % 11.2 % (2.0-8.0); NEUTROPHILS % 66.8 % (36.0-66.0); PLATELET COUNT, AUTOMATED 376 10^3/uL (150-450); RED BLOOD COUNT 2.44 10^6/uL (4.00-5.40); WHITE BLOOD COUNT 13.5 10^3/uL (4.0-10.0)
[2023-05-26 03:25] LABS: LIPASE 83 U/L (12-53)
[2023-05-26 03:27] LABS: ALBUMIN 2.8 G/DL (3.2-5.2); ALKALINE PHOSPHATASE 77 U/L (46-116); ALT/SGPT 20 U/L (7.0-40); AST/SGOT 13 U/L (<34); BILIRUBIN,DIRECT 0.2 MG/DL (<0.4); BILIRUBIN,TOTAL 0.6 MG/DL (0.3-1.2); BLOOD UREA NITROGEN 18 MG/DL (9-23); CALCIUM LEVEL 8.4 MG/DL (8.3-10.6); CARBON DIOXIDE LEVEL 32 MMOL/L (20-31); CHLORIDE LEVEL 99 MMOL/L (98-107); GLOMERULAR FILTRATION RATE > 60.0 (>45); GLUCOSE, FASTING 100 MG/DL (74-106); MAGNESIUM LEVEL 1.6 MG/DL (1.8-2.4); POTASSIUM SERUM 4.3 MMOL/L (3.5-5.1); SODIUM LEVEL 134 MMOL/L (136-145); TOTAL PROTEIN 5.4 G/DL (5.7-8.2)
[2023-05-26 03:28] LABS: HEMATOCRIT 20.8 % (36.0-47.0)
[2023-05-26 03:29] LABS: HEMOGLOBIN 6.6 g/dl (12.0-15.5)
[2023-05-26] MEDS ORDERED: FUROSEMIDE 40MG/4ML VIAL IV ONE (04:15)
[2023-05-26 04:58] VITALS: BP 127/72; O2SAT 98
[2023-05-28] MEDS ORDERED: RISP-7 PO (11:51)
== END 2023-05-26 05:39 | disposition left against medical advice (07) ==
LOC: M ED 01:43 → EDBD 01:43 → M ED 05:39
DX: R22.43 Localized swelling, mass and lump, lower limb, bilateral (principal); D64.9 Anemia, unspecified; I10 Essential (primary) hypertension; E78.5 Hyperlipidemia, unspecified; K21.9 Gastro-esophageal reflux disease without esophagitis; F31.9 Bipolar disorder, unspecified; F20.9 Schizophrenia, unspecified; Z88.0 Allergy status to penicillin; Z88.8 Allergy status to other drugs, medicaments and biological substances; Z79.811 Long term (current) use of aromatase inhibitors; Z79.02 Long term (current) use of antithrombotics/antiplatelets; Z91.018 Allergy to other foods; Z53.9 Procedure and treatment not carried out, unspecified reason

== ENCOUNTER 2023-07-25 23:00 | Emergency (ER) | payer MEDICARE, MEDICAID ==
[~2023-07-25] VITALS: Ht 167.6 cm; Wt 67.3 kg
[~2023-07-25 23:00] MED LIST changes: -OXYB5TAB10 PO; +OXYB5TAB11 PO
[2023-07-25 23:22] VITALS: BP 113/62; TEMP 96.8; O2SAT 96
[2023-07-26] MEDS ORDERED: CLEO300C2 PO (01:47)
== END 2023-07-26 02:26 | disposition home or self-care (01) ==
LOC: M ED 23:00 → EDBD 23:00 → M ED 07-26 02:26
DX: L03.116 Cellulitis of left lower limb (principal); L03.115 Cellulitis of right lower limb; Z53.9 Procedure and treatment not carried out, unspecified reason; I10 Essential (primary) hypertension; E78.5 Hyperlipidemia, unspecified; J45.909 Unspecified asthma, uncomplicated; Z79.899 Other long term (current) drug therapy; Z88.0 Allergy status to penicillin; Z88.8 Allergy status to other drugs, medicaments and biological substances; Z91.018 Allergy to other foods

== ENCOUNTER 2023-09-11 23:38 | Emergency (ER) | payer MEDICARE, MEDICAID ==
[~2023-09-11] VITALS: Ht 167.6 cm; Wt 66.8 kg
[~2023-09-11 23:38] MED LIST changes: -FLUT50SP17; +FLUTISP
[2023-09-12] MEDS ORDERED: diphenhydrAMINE 50MG/ML VIAL IV STA (02:28)
[2023-09-12] MEDS ORDERED: KETOROLAC 30 MG/ML 1ML VIAL IV ONE (02:30)
[2023-09-12 03:05] LABS: BASO # 0.1 10^3/uL (0.0-0.2); BASO % 1.2 % (0.0-1.0); EOS # 0.2 10^3/uL (0.0-0.5); EOS % 1.9 % (0.0-3.0); HEMOGLOBIN 10.8 g/dl (12.0-15.5); LYMPH # 1.7 10^3/uL (1.5-5.0); LYMPH % 20.1 % (24.0-44.0); MEAN CORPUSCULAR HGB CONC 31.8 g/dl (32.0-36.5); MEAN CORPUSCULAR VOLUME 78.7 fl (80.0-96.0); MONO # 0.9 10^3/uL (0.0-0.8); MONO % 10.4 % (2.0-8.0); NEUTROPHILS # 5.6 10^3/uL (1.5-8.5); NEUTROPHILS % 65.9 % (36.0-66.0); PLATELET COUNT, AUTOMATED 248 10^3/uL (150-450); RED BLOOD COUNT 4.32 10^6/uL (4.00-5.40); WHITE BLOOD COUNT 8.5 10^3/uL (4.0-10.0)
[2023-09-12 08:40] VITALS: BP 121/90; TEMP 96.4; O2SAT 98
== END 2023-09-12 08:55 | disposition home or self-care (01) ==
LOC: M ED 23:38
DX: F41.9 Anxiety disorder, unspecified (principal); F42.4 Excoriation (skin-picking) disorder; F31.9 Bipolar disorder, unspecified; I10 Essential (primary) hypertension; E78.5 Hyperlipidemia, unspecified; J45.909 Unspecified asthma, uncomplicated; Z88.0 Allergy status to penicillin; Z88.8 Allergy status to other drugs, medicaments and biological substances; Z91.018 Allergy to other foods; Z79.899 Other long term (current) drug therapy; Z79.02 Long term (current) use of antithrombotics/antiplatelets; Z79.52 Long term (current) use of systemic steroids; Z79.811 Long term (current) use of aromatase inhibitors; Z79.83 Long term (current) use of bisphosphonates
CPT/HCPCS: 85025; 86140; 96374; 96375; 99285; J1200; J1885

== ENCOUNTER 2023-10-05 20:28 | Inpatient (IN) | payer MEDICAID, MEDICARE ==
[~2023-10-05] VITALS: Ht 167.6 cm; Wt 65.0 kg
[~2023-10-05 20:28] MED LIST changes: +RISP-105; +RISP-105 PO; -RISP-8; -RISP-8 PO
[2023-10-05] MEDS ORDERED: OLANZapine ORAL DISINTEGRATING TAB 5MG PO ONE (21:30)
[2023-10-05] MEDS ORDERED: LORazepam 2 MG TAB PO STA (21:30)
[2023-10-05 22:46] LABS: BASO # 0.1 10^3/uL (0.0-0.2); BASO % 1.2 % (0.0-1.0); EOS # 0.1 10^3/uL (0.0-0.5); EOS % 1.8 % (0.0-3.0); HEMATOCRIT 35.2 % (36.0-47.0); HEMOGLOBIN 11.5 g/dl (12.0-15.5); LYMPH # 1.6 10^3/uL (1.5-5.0); LYMPH % 23.3 % (24.0-44.0); MEAN CORPUSCULAR HEMOGLOBIN 26.1 pg (27.0-33.0); MEAN CORPUSCULAR HGB CONC 32.7 g/dl (32.0-36.5); MEAN CORPUSCULAR VOLUME 79.8 fl (80.0-96.0); MONO % 15.1 % (2.0-8.0); PLATELET COUNT, AUTOMATED 260 10^3/uL (150-450); RED BLOOD COUNT 4.41 10^6/uL (4.00-5.40); WHITE BLOOD COUNT 6.8 10^3/uL (4.0-10.0)
[2023-10-05 23:10] LABS: ETHYL ALCOHOL (ETHANOL) 0.004 % (0.000-0.010); LIPASE 86 U/L (12-53)
[2023-10-05 23:13] LABS: SALICYLATE LEVEL < 3.0 MG/DL (<30)
[2023-10-05 23:16] LABS: CPK CREATINE PHOSPHOKINASE 90 U/L (34-145)
[2023-10-05 23:26] LABS: ALBUMIN 3.3 G/DL (3.2-5.2); ALKALINE PHOSPHATASE 97 U/L (46-116); ALT/SGPT 19 U/L (7.0-40); AST/SGOT 20 U/L (<34); BILIRUBIN,DIRECT 0.1 MG/DL (<0.4); BILIRUBIN,TOTAL 0.5 MG/DL (0.3-1.2); BLOOD UREA NITROGEN 30 MG/DL (9-23); CALCIUM LEVEL 9.1 MG/DL (8.3-10.6); CARBON DIOXIDE LEVEL 31 MMOL/L (20-31); CHLORIDE LEVEL 94 MMOL/L (98-107); CK-MB VALUE MASS 2.4 NG/ML (<3.6); CREATININE FOR GFR 0.71 MG/DL (0.55-1.30); GLOMERULAR FILTRATION RATE > 60.0 (>39); GLUCOSE, FASTING 88 MG/DL (74-106); MB/CK RELATIVE INDEX 2.66 (< OR =4); POTASSIUM SERUM 4.4 MMOL/L (3.5-5.1); SODIUM LEVEL 129 MMOL/L (136-145); THYROID STIMULATING HORMONE 6.085 uIU/ML (0.55-4.78); TOTAL PROTEIN 6.8 G/DL (5.7-8.2)
[2023-10-05] MEDS ORDERED: ISOVUE-370 76% 100ML VIAL As Ordered ONE (23:46)
[2023-10-06 00:26] LABS: CK-MB VALUE MASS 2.2 NG/ML (<3.6); VALPROIC ACID (DEPAKOTE) < 3.0 UG/ML (50.0-100.0)
[2023-10-06 00:28] LABS: CPK CREATINE PHOSPHOKINASE 66 U/L (34-145); MB/CK RELATIVE INDEX 3.33 (< OR =4)
[2023-10-06 00:53] LABS: AMPHETAMINES LEVEL URINE NEGATIVE (NEGATIVE); BENZODIAZEPINES URINE NEGATIVE (NEGATIVE)
[2023-10-06 00:54] LABS: BARBITURATES URINE NEGATIVE (NEGATIVE); CANNABINOIDS URINE NEGATIVE (NEGATIVE); COCAINE METABOLITE URINE NEGATIVE (NEGATIVE); METHADONE URINE NEGATIVE (NEGATIVE); OPIATES URINE NEGATIVE (NEGATIVE); PHENCYCLIDINE URINE NEGATIVE (NEGATIVE)
[2023-10-06] MEDS ORDERED: hydroCHLOROthiazide 12.5 MG CAPSULE PO ONE (10:00)
[2023-10-06] MEDS: risperiDONE 0.5 MG TAB PO ONE ×2 (10:00→10:45)
[2023-10-06] MEDS ORDERED: LOSARTAN 25 MG TAB PO ONE (10:00)
[2023-10-06] MEDS: SPIRONOLACTONE 25 MG TAB PO SCH (10:45)
[2023-10-07] MEDS ORDERED: OLANZapine ORAL DISINTEGRATING TAB 5MG PO ONE (01:45)
[2023-10-07] MEDS: DIVALPROEX 250MG *ER* TAB PO STA ×2 (04:10→04:48)
[2023-10-07] MEDS: risperiDONE 1 MG TAB PO ONE ×2 (04:10→04:48)
[2023-10-07] MEDS: risperiDONE 0.5 MG TAB PO ONE ×2 (04:10→04:47)
[2023-10-07] MEDS: QUEtiapine FUMARATE 25 MG TAB PO STA ×2 (04:10→04:48)
[2023-10-07] MEDS ORDERED: RISP-7 PO (06:21)
[2023-10-07] MEDS ORDERED: LOSA25TA13 PO (06:21)
[2023-10-07] MEDS ORDERED: SPIR-10 PO (06:21)
[2023-10-07] MEDS ORDERED: OMEG10002 PO (06:21)
[2023-10-07] MEDS ORDERED: HYDR12.55 PO (06:21)
[2023-10-07] MEDS ORDERED: HOME MED LIST COMPLETE! XX SCH (06:25)
[2023-10-07] MEDS ORDERED: FERROUS SULFATE 325MG TAB PO SCH (09:00)
[2023-10-07] MEDS ORDERED: hydroCHLOROthiazide 12.5 MG CAPSULE PO SCH (09:00)
[2023-10-07] MEDS ORDERED: ATORVASTATIN 20 MG TAB PO SCH (09:00)
[2023-10-07] MEDS ORDERED: LOSARTAN 25 MG TAB PO SCH (09:00)
[2023-10-07] MEDS: risperiDONE 0.5 MG TAB PO SCH ×2 (09:14→20:38)
[2023-10-07] MEDS: SPIRONOLACTONE 25 MG TAB PO SCH (09:17)
[2023-10-07] MEDS ORDERED: IBUPROFEN 400MG TAB PO PRN (13:20)
[2023-10-07] MEDS ORDERED: ACETAMINOPHEN TAB 650MG DOSE (2X325MG) PO PRN (13:20)
[2023-10-07] MEDS ORDERED: MOM 30ML SUSPENSION UDC PO PRN (13:20)
[2023-10-07] MEDS ORDERED: MAALOX 30 ML SUSP *UDC PO PRN (13:20)
[2023-10-07] MEDS ORDERED: OLANZapine ORAL DISINTEGRATING TAB 5MG PO PRN (13:25)
[2023-10-07] MEDS: traZODone 50 MG TAB PO PRN (20:38)
[2023-10-08 06:41] VITALS: BP 156/83; TEMP 97.6; O2SAT 95
[2023-10-08] MEDS ORDERED: hydroCHLOROthiazide 12.5 MG CAPSULE PO SCH (09:00)
[2023-10-08] MEDS ORDERED: LOSARTAN 25 MG TAB PO SCH (09:00)
[2023-10-08 09:59] VITALS: BP 158/86
[2023-10-08] MEDS: risperiDONE 0.5 MG TAB PO SCH ×2 (10:14→21:35)
[2023-10-08] MEDS: FERROUS SULFATE 325MG TAB PO SCH (10:14)
[2023-10-08] MEDS: SPIRONOLACTONE 25 MG TAB PO SCH (10:14)
[2023-10-08] MEDS: OMEGA-3 1000MG CAPSULE PO SCH (10:14)
[2023-10-08] MEDS: ATORVASTATIN 20 MG TAB PO SCH (10:15)
[2023-10-08 11:09] LABS: ALBUMIN 3.2 G/DL (3.2-5.2); ALKALINE PHOSPHATASE 101 U/L (46-116); ALT/SGPT 21 U/L (7.0-40); AST/SGOT 20 U/L (<34); BILIRUBIN,TOTAL 0.5 MG/DL (0.3-1.2); BLOOD UREA NITROGEN 22 MG/DL (9-23); CALCIUM LEVEL 8.9 MG/DL (8.3-10.6); CARBON DIOXIDE LEVEL 29 MMOL/L (20-31); CHLORIDE LEVEL 93 MMOL/L (98-107); CREATININE FOR GFR 0.46 MG/DL (0.55-1.30); GLOMERULAR FILTRATION RATE > 60.0 (>39); GLUCOSE, FASTING 123 MG/DL (74-106); POTASSIUM SERUM 4.2 MMOL/L (3.5-5.1); SODIUM LEVEL 128 MMOL/L (136-145); TOTAL PROTEIN 6.7 G/DL (5.7-8.2)
[2023-10-08] MEDS ORDERED: ALBUTEROL 90 MCG/ACT 8GM HFA INHALER INH PRN (13:40)
[2023-10-08 14:38] LABS: FREE T4 1.15 NG/DL (0.89-1.76)
[2023-10-08] MEDS: traZODone 50 MG TAB PO PRN (21:35)
[2023-10-08] MEDS: DOCUSATE SODIUM 100MG CAPSULE PO SCH (21:35)
[2023-10-09] MEDS: OMEGA-3 1000MG CAPSULE PO SCH (07:41)
[2023-10-09] MEDS: ATORVASTATIN 20 MG TAB PO SCH ×2 (07:41→09:00)
[2023-10-09] MEDS: FERROUS SULFATE 325MG TAB PO SCH (07:41)
[2023-10-09] MEDS: SPIRONOLACTONE 25 MG TAB PO SCH ×2 (07:41→08:37)
[2023-10-09] MEDS: risperiDONE 0.5 MG TAB PO SCH (07:42)
[2023-10-09] MEDS: PANTOPRAZOLE 40MG TAB (PROTONIX) PO SCH (07:42)
[2023-10-09] MEDS: DOCUSATE SODIUM 100MG CAPSULE PO SCH ×3 (07:42→21:09)
[2023-10-09] MEDS: diphenhydrAMINE 25MG CAP PO PRN (07:42)
[2023-10-09] MEDS: LOSARTAN 50MG TABLET PO SCH (07:43)
[2023-10-09] MEDS: MIRALAX *UNIT DOSE* 17GM PACKET PO SCH (07:57)
[2023-10-09] MEDS: DIVALPROEX 250MG TAB PO SCH ×2 (09:00→21:09)
[2023-10-09] MEDS ORDERED: risperiDONE 0.5 MG TAB PO ONE ×2 (10:00→12:15)
[2023-10-09 18:45] VITALS: BP 135/71; TEMP 97.8; O2SAT 98
[2023-10-09 19:49] VITALS: BP_SYST 127; BP_SYST 130; BP_DIAS 76; BP_DIAS 86
[2023-10-09] MEDS ORDERED: risperiDONE 1 MG TAB PO SCH (21:00)
[2023-10-09] MEDS: risperiDONE 1 MG TAB PO SCH ×2 (21:00→21:09)
[2023-10-10] MEDS: diphenhydrAMINE 25MG CAP PO PRN (01:45)
[2023-10-10] MEDS: traZODone 50 MG TAB PO PRN (01:45)
[2023-10-10] MEDS: MIRALAX *UNIT DOSE* 17GM PACKET PO SCH (09:00)
[2023-10-10] MEDS ORDERED: FLUTICASONE PROP 0.05% NASAL SPRAY 16 GM (FLONASE) NARES SCH (09:00)
[2023-10-10] MEDS: DIVALPROEX 250MG TAB PO SCH (09:00)
[2023-10-10] MEDS ORDERED: LOSA-528 PO (09:08)
[2023-10-10] MEDS ORDERED: RISP1TAB42 PO (09:08)
[2023-10-10] MEDS ORDERED: DEPA250T32 PO (09:08)
[2023-10-10] MEDS ORDERED: TRAZ-252 PO (09:08)
[2023-10-10] MEDS ORDERED: COLA100C5 PO (09:08)
[2023-10-10] MEDS ORDERED: OLAN5ZYD PO (09:08)
[2023-10-10] MEDS ORDERED: MIRA1POW3 PO (09:08)
[2023-10-10 09:52] VITALS: BP 147/98
[2023-10-10] MEDS: SPIRONOLACTONE 25 MG TAB PO SCH (09:52)
[2023-10-10] MEDS: ATORVASTATIN 20 MG TAB PO SCH (09:52)
[2023-10-10] MEDS: PANTOPRAZOLE 40MG TAB (PROTONIX) PO SCH (09:52)
[2023-10-10] MEDS: DOCUSATE SODIUM 100MG CAPSULE PO SCH (09:52)
[2023-10-10] MEDS: LOSARTAN 50MG TABLET PO SCH (09:52)
[2023-10-10] MEDS: risperiDONE 1 MG TAB PO SCH (09:53)
[2023-10-10] MEDS: FERROUS SULFATE 325MG TAB PO SCH (09:53)
[2023-10-10] MEDS: OMEGA-3 1000MG CAPSULE PO SCH (09:53)
== END 2023-10-10 11:30 | disposition home or self-care (01) | DRG 753 ==
LOC: M ED 20:28 → EDBD 20:28 → M ED INP 10-07 13:18 → M PSY 10-07 16:41
PROVIDERS: ADMIT Student in an Organized Health Care Education/Training Program; ATTEND Student in an Organized Health Care Education/Training Program
DX: F31.9 Bipolar disorder, unspecified (principal); F03.911 Unspecified dementia, unspecified severity, with agitation; I10 Essential (primary) hypertension; R73.03 Prediabetes; L30.9 Dermatitis, unspecified; E87.1 Hypo-osmolality and hyponatremia; E02 Subclinical iodine-deficiency hypothyroidism; D64.9 Anemia, unspecified; E78.5 Hyperlipidemia, unspecified; K44.9 Diaphragmatic hernia without obstruction or gangrene; J44.9 Chronic obstructive pulmonary disease, unspecified; Z79.899 Other long term (current) drug therapy; Z88.8 Allergy status to other drugs, medicaments and biological substances; Z88.0 Allergy status to penicillin; Z91.018 Allergy to other foods; Z20.822 Contact with and (suspected) exposure to COVID-19; M80.051D Age-related osteoporosis with current pathological fracture, right femur, subsequent encounter for fracture with routine healing

== ENCOUNTER 2024-01-23 00:49 | Observation (INO) | payer MEDICARE, MEDICAID ==
[~2024-01-23] VITALS: Ht 167.6 cm; Wt 55.4 kg
[~2024-01-23 00:49] MED LIST changes: +DOXY-323 PO; +DOXY-440 PO; -DOXY-443 PO; -DOXY-444 PO; +LOSA-528 PO; +LOSA25TA13 PO; -MIRA1POW3 PO; +MIRA33506 PO; +OLAN5ZYD PO; +OMEG10002 PO; -OXYB5TAB11 PO; +OXYB5TAB14 PO; +RISP-106 PO; -RISP-7 PO; -RISP-9 PO; +RISP0.5T82 PO; +RISP1TAB42 PO; +TRAZ-252 PO
[2024-01-23 02:01] LABS: ETHYL ALCOHOL (ETHANOL) 0.007 % (0.000-0.010)
[2024-01-23 02:03] LABS: ALBUMIN 3.9 G/DL (3.2-5.2); ALKALINE PHOSPHATASE 91 U/L (46-116); ALT/SGPT 17 U/L (7.0-40); AST/SGOT 33 U/L (<34); BILIRUBIN,DIRECT 0.3 MG/DL (<0.4); BILIRUBIN,TOTAL 1.3 MG/DL (0.3-1.2); BLOOD UREA NITROGEN 16 MG/DL (9-23); CALCIUM LEVEL 9.3 MG/DL (8.3-10.6); CARBON DIOXIDE LEVEL 27 MMOL/L (20-31); CHLORIDE LEVEL 88 MMOL/L (98-107); CREATININE FOR GFR 0.42 MG/DL (0.55-1.30); GLOMERULAR FILTRATION RATE > 60.0 (>39); GLUCOSE, FASTING 92 MG/DL (74-106); POTASSIUM SERUM 4.6 MMOL/L (3.5-5.1); SALICYLATE LEVEL < 3.0 MG/DL (<30); SODIUM LEVEL 122 MMOL/L (136-145); TOTAL PROTEIN 6.9 G/DL (5.7-8.2)
[2024-01-23 02:05] LABS: THYROID STIMULATING HORMONE 4.738 uIU/ML (0.55-4.78)
[2024-01-23 02:50] LABS: HEMATOCRIT 37.8 % (36.0-47.0); HEMOGLOBIN 12.8 g/dl (12.0-15.5); MEAN CORPUSCULAR HEMOGLOBIN 29.9 pg (27.0-33.0); MEAN CORPUSCULAR HGB CONC 33.9 g/dl (32.0-36.5); MEAN CORPUSCULAR VOLUME 88.3 fl (80.0-96.0); PLATELET COUNT, AUTOMATED 261 10^3/uL (150-450); RED BLOOD COUNT 4.28 10^6/uL (4.00-5.40); WHITE BLOOD COUNT 7.6 10^3/uL (4.0-10.0)
[2024-01-23 03:37] LABS: AMPHETAMINES LEVEL URINE NEGATIVE (NEGATIVE); BARBITURATES URINE NEGATIVE (NEGATIVE); CANNABINOIDS URINE NEGATIVE (NEGATIVE); COCAINE METABOLITE URINE NEGATIVE (NEGATIVE); METHADONE URINE NEGATIVE (NEGATIVE); OPIATES URINE NEGATIVE (NEGATIVE); PHENCYCLIDINE URINE NEGATIVE (NEGATIVE)
[2024-01-23 03:38] LABS: BENZODIAZEPINES URINE NEGATIVE (NEGATIVE)
[2024-01-23 03:40] LABS: CREATININE,RANDOM URINE 38.2 MG/DL
[2024-01-23 03:57] LABS: FREE T4 1.19 NG/DL (0.89-1.76)
[2024-01-23] MEDS ORDERED: TRAZ-252 PO (08:12)
[2024-01-23] MEDS ORDERED: OLAN5ZYD PO (08:12)
[2024-01-23] MEDS ORDERED: DIVA250T67 PO (08:12)
[2024-01-23] MEDS ORDERED: POLY17PO18 PO (08:12)
[2024-01-23] MEDS ORDERED: RISP-105 PO (08:12)
[2024-01-23] MEDS ORDERED: HOME MED LIST COMPLETE! XX SCH (08:15)
[2024-01-23] MEDS ORDERED: MIRALAX *UNIT DOSE* 17GM PACKET PO PRN (09:00)
[2024-01-23] MEDS: LIDOCAINE 5% (LIDODERM) PATCH TD SCH (09:00)
[2024-01-23] MEDS: NS 1,000 ML IV SCH (09:36)
[2024-01-23] MEDS ORDERED: ACETAMINOPHEN TAB 650MG DOSE (2X325MG) PO PRN (11:05)
[2024-01-23] MEDS ORDERED: MORPHINE 2 MG/ML 1ML VIAL IV PRN (11:10)
[2024-01-23] MEDS ORDERED: MORPHINE 4 MG/ML 1ML VIAL IV PRN (11:10)
[2024-01-23] MEDS: ACETAMINOPHEN 500 MG TAB PO SCH (12:00)
[2024-01-23] MEDS: DICLOFENAC EPOLAMINE 1.3% PATCH TOP SCH (12:00)
[2024-01-23] MEDS: MORPHINE 2 MG/ML 1ML VIAL IV ONE (12:01)
[2024-01-23 12:40] LABS: URIC ACID 3.4 MG/DL (3.1-7.8)
[2024-01-23 12:43] LABS: BLOOD UREA NITROGEN 13 MG/DL (9-23); CALCIUM LEVEL 8.7 MG/DL (8.3-10.6); CARBON DIOXIDE LEVEL 29 MMOL/L (20-31); CHLORIDE LEVEL 93 MMOL/L (98-107); CREATININE FOR GFR 0.37 MG/DL (0.55-1.30); GLOMERULAR FILTRATION RATE > 60.0 (>39); GLUCOSE, FASTING 76 MG/DL (74-106); POTASSIUM SERUM 3.8 MMOL/L (3.5-5.1); SODIUM LEVEL 127 MMOL/L (136-145)
[2024-01-23 13:15] VITALS: BP 147/90; TEMP 97.7; O2SAT 92
[2024-01-23] MEDS: CYCLOBENZAPRINE 5MG TABLET PO SCH (13:32)
[2024-01-23] MEDS: HEPARIN SOD (PORCINE) 5000UNITS/ML 1ML VIAL/SYRINGE SC SCH (13:32)
[2024-01-23] MEDS ORDERED: PROHANCE 279.3MG/ML 5ML VIAL As Ordered ONE (17:21)
[2024-01-23] MEDS ORDERED: risperiDONE 1 MG TAB PO SCH (21:00)
[2024-01-23] MEDS: DOCUSATE SODIUM 100MG CAPSULE PO SCH (21:00)
[2024-01-23] MEDS: OLANZapine ORAL DISINTEGRATING TAB 5MG PO PRN (21:51)
[2024-01-23 22:37] VITALS: BP 149/90; TEMP 97.3; O2SAT 90
[2024-01-23] MEDS: TAMSULOSIN 0.4 MG CAP PO ONE (22:56)
[2024-01-24 06:01] VITALS: BP 140/90; TEMP 97; O2SAT 91
[2024-01-24 06:25] LABS: HEMOGLOBIN 12.4 g/dl (12.0-15.5); MEAN CORPUSCULAR HEMOGLOBIN 29.7 pg (27.0-33.0); MEAN CORPUSCULAR HGB CONC 33.5 g/dl (32.0-36.5); MEAN CORPUSCULAR VOLUME 88.5 fl (80.0-96.0); PLATELET COUNT, AUTOMATED 269 10^3/uL (150-450); RED BLOOD COUNT 4.18 10^6/uL (4.00-5.40); WHITE BLOOD COUNT 6.6 10^3/uL (4.0-10.0)
[2024-01-24 06:45] LABS: BLOOD UREA NITROGEN 14 MG/DL (9-23); CALCIUM LEVEL 9.1 MG/DL (8.3-10.6); CARBON DIOXIDE LEVEL 30 MMOL/L (20-31); CHLORIDE LEVEL 94 MMOL/L (98-107); CREATININE FOR GFR 0.47 MG/DL (0.55-1.30); GLOMERULAR FILTRATION RATE > 60.0 (>39); GLUCOSE, FASTING 107 MG/DL (74-106); POTASSIUM SERUM 4.3 MMOL/L (3.5-5.1); SODIUM LEVEL 128 MMOL/L (136-145)
[2024-01-24] MEDS: SPIRONOLACTONE 25 MG TAB PO SCH (09:00)
[2024-01-24] MEDS: FERROUS SULFATE 325MG TAB PO SCH (09:00)
[2024-01-24] MEDS: ATORVASTATIN 20 MG TAB PO SCH (09:00)
[2024-01-24] MEDS ORDERED: DIVALPROEX 250MG TAB PO SCH (09:00)
[2024-01-24] MEDS: OMEGA-3 1000MG CAPSULE PO SCH (09:00)
[2024-01-24 14:00] VITALS: BP 116/68; TEMP 97.9; O2SAT 96
[2024-01-24] MEDS: traZODone 50 MG TAB PO PRN (23:53)
[2024-01-25] MEDS: MIRALAX *UNIT DOSE* 17GM PACKET PO SCH (09:00)
[2024-01-25 14:00] VITALS: BP 147/107; TEMP 97.9; O2SAT 96
[2024-01-25] MEDS: SENOKOT S TAB PO SCH (19:59)
[2024-01-25 21:00] VITALS: BP 147/101; TEMP 97.7; O2SAT 96
[2024-01-26 06:29] LABS: BLOOD UREA NITROGEN 17 MG/DL (9-23); CALCIUM LEVEL 8.7 MG/DL (8.3-10.6); CARBON DIOXIDE LEVEL 29 MMOL/L (20-31); CHLORIDE LEVEL 98 MMOL/L (98-107); CREATININE FOR GFR 0.47 MG/DL (0.55-1.30); GLOMERULAR FILTRATION RATE > 60.0 (>39); GLUCOSE, FASTING 105 MG/DL (74-106); MAGNESIUM LEVEL 1.5 MG/DL (1.8-2.4); POTASSIUM SERUM 4.8 MMOL/L (3.5-5.1); SODIUM LEVEL 131 MMOL/L (136-145)
[2024-01-26] MEDS: CEFDINIR 300 MG CAP (OMNICEF) PO SCH (06:31)
[2024-01-26 06:34] VITALS: BP 138/90; TEMP 97.7; O2SAT 95
[2024-01-26] MEDS: MAG SULF 1GM/100ML (MAG RUN) 1 GM in IV 1 EA IV SCH (08:00)
[2024-01-26] MEDS ORDERED: MAGNESIUM OXIDE 400MG TAB (MAG-OX) PO SCH (09:00)
[2024-01-26] MEDS: risperiDONE 0.5 MG TAB PO SCH (10:19)
[2024-01-26] MEDS: MAGNESIUM OXIDE 400MG TAB (MAG-OX) PO SCH (10:19)
[2024-01-26] MEDS: LOSARTAN 25 MG TAB PO SCH (10:20)
[2024-01-26 18:00] VITALS: BP 164/105; TEMP 97.2; O2SAT 97
[2024-01-26 18:28] VITALS: BP 148/90
[2024-01-26 20:09] VITALS: BP 132/88; TEMP 97.5; O2SAT 96
[2024-01-27 06:26] VITALS: BP 160/90; TEMP 97.7; O2SAT 96
[2024-01-27 07:13] LABS: BLOOD UREA NITROGEN 11 MG/DL (9-23); CARBON DIOXIDE LEVEL 32 MMOL/L (20-31); CHLORIDE LEVEL 96 MMOL/L (98-107); CREATININE FOR GFR 0.43 MG/DL (0.55-1.30); GLOMERULAR FILTRATION RATE > 60.0 (>39); GLUCOSE, FASTING 106 MG/DL (74-106); MAGNESIUM LEVEL 1.6 MG/DL (1.8-2.4); POTASSIUM SERUM 4.2 MMOL/L (3.5-5.1); SODIUM LEVEL 130 MMOL/L (136-145)
[2024-01-27 14:00] VITALS: BP 172/101; TEMP 98.1; O2SAT 98
[2024-01-27] MEDS: **hydrALAZINE** 10 MG TAB PO PRN (14:55)
[2024-01-27 16:00] VITALS: BP 158/99
[2024-01-27 20:00] VITALS: BP 150/96; TEMP 97.9; O2SAT 95
[2024-01-28 05:12] VITALS: BP 141/91; TEMP 98.1; O2SAT 94
[2024-01-28 06:37] LABS: BLOOD UREA NITROGEN 13 MG/DL (9-23); CALCIUM LEVEL 8.9 MG/DL (8.3-10.6); CARBON DIOXIDE LEVEL 30 MMOL/L (20-31); CHLORIDE LEVEL 95 MMOL/L (98-107); CREATININE FOR GFR 0.49 MG/DL (0.55-1.30); GLOMERULAR FILTRATION RATE > 60.0 (>39); GLUCOSE, FASTING 98 MG/DL (74-106); MAGNESIUM LEVEL 1.6 MG/DL (1.8-2.4); POTASSIUM SERUM 4.4 MMOL/L (3.5-5.1); SODIUM LEVEL 129 MMOL/L (136-145)
[2024-01-28 14:00] VITALS: BP 127/87; TEMP 98.1; O2SAT 92
[2024-01-28 19:40] VITALS: BP 128/92; TEMP 97.9; O2SAT 93
[2024-01-28] MEDS: SODIUM BICARBONATE 325 MG TAB PO SCH (21:00)
[2024-01-29 10:16] LABS: BLOOD UREA NITROGEN 15 MG/DL (9-23); CARBON DIOXIDE LEVEL 31 MMOL/L (20-31); CHLORIDE LEVEL 94 MMOL/L (98-107); GLOMERULAR FILTRATION RATE > 60.0 (>39); GLUCOSE, FASTING 112 MG/DL (74-106); MAGNESIUM LEVEL 1.6 MG/DL (1.8-2.4); POTASSIUM SERUM 5.3 MMOL/L (3.5-5.1); SODIUM LEVEL 127 MMOL/L (136-145)
[2024-01-29 14:00] VITALS: BP 120/77; TEMP 98.2; O2SAT 92
[2024-01-29 21:01] VITALS: BP 146/76; TEMP 98.4; O2SAT 91
[2024-01-30 05:40] VITALS: BP 162/103; TEMP 97.5; O2SAT 93
[2024-01-30 09:41] LABS: BLOOD UREA NITROGEN 12 MG/DL (9-23); CALCIUM LEVEL 9.3 MG/DL (8.3-10.6); CARBON DIOXIDE LEVEL 33 MMOL/L (20-31); CHLORIDE LEVEL 92 MMOL/L (98-107); CREATININE FOR GFR 0.48 MG/DL (0.55-1.30); GLOMERULAR FILTRATION RATE > 60.0 (>39); GLUCOSE, FASTING 111 MG/DL (74-106); MAGNESIUM LEVEL 1.6 MG/DL (1.8-2.4); POTASSIUM SERUM 4.6 MMOL/L (3.5-5.1); SODIUM LEVEL 126 MMOL/L (136-145)
[2024-01-30 14:00] VITALS: BP 117/84; TEMP 98.1; O2SAT 100
[2024-01-30 20:36] VITALS: BP 128/92; TEMP 98.2; O2SAT 93
[2024-01-31 13:02] LABS: SODIUM,RANDOM URINE 54 MMOL/L
[2024-01-31 14:07] LABS: OSMOLALITY URINE 492 MOSM/KG (50-1400)
[2024-01-31] MEDS: MOM 30ML SUSPENSION UDC PO PRN (14:41)
[2024-02-01 05:46] VITALS: BP 124/90; TEMP 97.9; O2SAT 94
[2024-02-01] MEDS: SODIUM CHLORIDE 1 GM TAB PO SCH (11:34)
[2024-02-01] MEDS: ASENAPINE 5MG SUBLINGUAL TAB (SAPHRIS) SL SCH (11:34)
[2024-02-01 11:35] LABS: BASO # 0.1 10^3/uL (0.0-0.2); BASO % 1.1 % (0.0-1.0); EOS # 0.2 10^3/uL (0.0-0.5); EOS % 2.9 % (0.0-3.0); HEMATOCRIT 36.7 % (36.0-47.0); HEMOGLOBIN 12.2 g/dl (12.0-15.5); LYMPH # 1.3 10^3/uL (1.5-5.0); MEAN CORPUSCULAR HEMOGLOBIN 30.1 pg (27.0-33.0); MEAN CORPUSCULAR HGB CONC 33.2 g/dl (32.0-36.5); MEAN CORPUSCULAR VOLUME 90.6 fl (80.0-96.0); MONO # 0.9 10^3/uL (0.0-0.8); MONO % 16.2 % (2.0-8.0); NEUTROPHILS # 3.1 10^3/uL (1.5-8.5); NEUTROPHILS % 56.3 % (36.0-66.0); PLATELET COUNT, AUTOMATED 195 10^3/uL (150-450); RED BLOOD COUNT 4.05 10^6/uL (4.00-5.40); WHITE BLOOD COUNT 5.6 10^3/uL (4.0-10.0)
[2024-02-01 11:41] LABS: BLOOD UREA NITROGEN 17 MG/DL (9-23); CALCIUM LEVEL 8.3 MG/DL (8.3-10.6); CARBON DIOXIDE LEVEL 30 MMOL/L (20-31); CHLORIDE LEVEL 94 MMOL/L (98-107); CREATININE FOR GFR 0.46 MG/DL (0.55-1.30); GLOMERULAR FILTRATION RATE > 60.0 (>39); GLUCOSE, FASTING 146 MG/DL (74-106); MAGNESIUM LEVEL 1.8 MG/DL (1.8-2.4); POTASSIUM SERUM 4.3 MMOL/L (3.5-5.1); SODIUM LEVEL 128 MMOL/L (136-145)
[2024-02-01 14:00] VITALS: BP 113/85; TEMP 98.1; O2SAT 95
[2024-02-01 21:44] VITALS: BP 146/94; TEMP 97.9; O2SAT 95
[2024-02-02 06:42] LABS: BLOOD UREA NITROGEN 16 MG/DL (9-23); CALCIUM LEVEL 8.7 MG/DL (8.3-10.6); CARBON DIOXIDE LEVEL 31 MMOL/L (20-31); CHLORIDE LEVEL 97 MMOL/L (98-107); GLOMERULAR FILTRATION RATE > 60.0 (>39); GLUCOSE, FASTING 151 MG/DL (74-106); MAGNESIUM LEVEL 1.8 MG/DL (1.8-2.4); POTASSIUM SERUM 4.3 MMOL/L (3.5-5.1); SODIUM LEVEL 132 MMOL/L (136-145)
[2024-02-02 07:31] VITALS: BP 144/99; TEMP 98.1; O2SAT 95
[2024-02-02 22:03] VITALS: BP 184/125; TEMP 97.9; O2SAT 94
[2024-02-02 22:11] VITALS: BP_SYST 138; BP_SYST 168; BP_DIAS 120
[2024-02-02 23:30] VITALS: BP 138/98
[2024-02-03 06:09] VITALS: BP 142/96; TEMP 98.1; O2SAT 96
[2024-02-03 13:07] LABS: BLOOD UREA NITROGEN 11 MG/DL (9-23); CALCIUM LEVEL 8.9 MG/DL (8.3-10.6); CARBON DIOXIDE LEVEL 33 MMOL/L (20-31); CHLORIDE LEVEL 94 MMOL/L (98-107); CREATININE FOR GFR 0.46 MG/DL (0.55-1.30); GLOMERULAR FILTRATION RATE > 60.0 (>39); GLUCOSE, FASTING 136 MG/DL (74-106); MAGNESIUM LEVEL 1.7 MG/DL (1.8-2.4); POTASSIUM SERUM 4.3 MMOL/L (3.5-5.1); SODIUM LEVEL 129 MMOL/L (136-145)
[2024-02-04 00:26] VITALS: BP 148/98; TEMP 97.9; O2SAT 94
[2024-02-04] MEDS: ACETAMINOPHEN 500 MG TAB PO PRN (00:35)
[2024-02-04 06:41] VITALS: BP 117/79; TEMP 97.9; O2SAT 94
[2024-02-04] MEDS ORDERED: OLANZapine 5 MG TAB PO PRN (10:25)
[2024-02-04 16:52] VITALS: BP 141/90; TEMP 97.2; O2SAT 95
[2024-02-04 20:11] VITALS: BP 137/90; TEMP 98.2; O2SAT 95
[2024-02-05 08:02] VITALS: BP 140/65
[2024-02-05] MEDS ORDERED: MAGN400T2 PO (10:25)
[2024-02-05] MEDS ORDERED: LIDO5TD TD (10:25)
[2024-02-05] MEDS ORDERED: ASEN5TA SL (10:25)
[2024-02-05] MEDS ORDERED: SODI1TAB6 PO (10:25)
[2024-02-05] MEDS ORDERED: ACET-683 PO (10:25)
[2024-02-05] MEDS ORDERED: MIRA3350 PO (10:25)
[2024-02-05] MEDS ORDERED: CYCL5TAB PO (10:25)
== END 2024-02-05 16:57 | disposition home health service (06) ==
LOC: M ED 00:49 → M ED INP 11:03 → INTOOBSV 11:03 → M MSPAV 13:19
PROVIDERS: ADMIT Student in an Organized Health Care Education/Training Program; ATTEND Student in an Organized Health Care Education/Training Program
DX: M54.9 Dorsalgia, unspecified (principal); M80.08XA Age-related osteoporosis with current pathological fracture, vertebra(e), initial encounter for fracture; M80.051K Age-related osteoporosis with current pathological fracture, right femur, subsequent encounter for fracture with nonunion; R32 Unspecified urinary incontinence; E87.1 Hypo-osmolality and hyponatremia; R26.2 Difficulty in walking, not elsewhere classified; N39.0 Urinary tract infection, site not specified; B95.1 Streptococcus, group B, as the cause of diseases classified elsewhere; F31.9 Bipolar disorder, unspecified; Z91.148 Patient's other noncompliance with medication regimen for other reason; R53.1 Weakness; Z99.89 Dependence on other enabling machines and devices; F02.811 Dementia in other diseases classified elsewhere, unspecified severity, with agitation; F05 Delirium due to known physiological condition; R41.9 Unspecified symptoms and signs involving cognitive functions and awareness; I10 Essential (primary) hypertension; E03.9 Hypothyroidism, unspecified; J44.9 Chronic obstructive pulmonary disease, unspecified; Z86.718 Personal history of other venous thrombosis and embolism; K59.00 Constipation, unspecified; D50.9 Iron deficiency anemia, unspecified; E78.5 Hyperlipidemia, unspecified; Z98.41 Cataract extraction status, right eye; Z98.42 Cataract extraction status, left eye; Z90.89 Acquired absence of other organs; Z88.0 Allergy status to penicillin; Z88.8 Allergy status to other drugs, medicaments and biological substances; Z91.018 Allergy to other foods; Z79.899 Other long term (current) drug therapy; F17.210 Nicotine dependence, cigarettes, uncomplicated; Z66 Do not resuscitate
CPT/HCPCS: 36415; 72110; 72131; 72148; 73552; 80048; 80076; 80143; 80307; 81001; 82077; 82570; 83735; 83930; 83935; 84295; 84300; 84439; 84443; 84550; 85025; 85027; 87086; 87088; 87186; 93005; 93041; 96361; 96372; 96374; 99285; A9576; G0378

== ENCOUNTER 2024-03-28 16:18 | Observation (INO) | payer MEDICARE, MEDICAID ==
[~2024-03-28] VITALS: Ht 167.6 cm; Wt 52.5 kg
[~2024-03-28 16:18] MED LIST changes: +ACET-683 PO; +CYCL5TAB PO; +DIVA250T67 PO; -DOXY-323 PO; +DOXY-441 PO; +GABA-1172 PO; -GABA-282 PO; +POLY17PO18 PO
[2024-03-28] MEDS: NS 500 ML IV ONE (16:40)
[2024-03-28 17:12] LABS: BASO # 0.1 10^3/uL (0.0-0.2); BASO % 1.2 % (0.0-1.0); EOS # 0.1 10^3/uL (0.0-0.5); EOS % 1.7 % (0.0-3.0); HEMATOCRIT 39.9 % (36.0-47.0); HEMOGLOBIN 13.2 g/dl (12.0-15.5); LYMPH # 1.5 10^3/uL (1.5-5.0); MEAN CORPUSCULAR HEMOGLOBIN 29.5 pg (27.0-33.0); MEAN CORPUSCULAR HGB CONC 33.1 g/dl (32.0-36.5); MEAN CORPUSCULAR VOLUME 89.1 fl (80.0-96.0); MONO # 0.8 10^3/uL (0.0-0.8); MONO % 13.7 % (2.0-8.0); NEUTROPHILS # 3.4 10^3/uL (1.5-8.5); NEUTROPHILS % 57.4 % (36.0-66.0); PLATELET COUNT, AUTOMATED 270 10^3/uL (150-450); RED BLOOD COUNT 4.48 10^6/uL (4.00-5.40)
[2024-03-28 17:38] LABS: ETHYL ALCOHOL (ETHANOL) < 0.003 % (0.000-0.010)
[2024-03-28 17:40] LABS: ALBUMIN 3.3 G/DL (3.2-5.2); ALKALINE PHOSPHATASE 81 U/L (46-116); ALT/SGPT 13 U/L (7.0-40); AST/SGOT 12 U/L (<34); BILIRUBIN,DIRECT 0.4 MG/DL (<0.4); BILIRUBIN,TOTAL 1.4 MG/DL (0.3-1.2); BLOOD UREA NITROGEN 25 MG/DL (9-23); CALCIUM LEVEL 9.6 MG/DL (8.3-10.6); CARBON DIOXIDE LEVEL 33 MMOL/L (20-31); CHLORIDE LEVEL 99 MMOL/L (98-107); CREATININE FOR GFR 0.78 MG/DL (0.55-1.30); GLOMERULAR FILTRATION RATE > 60.0 (>39); GLUCOSE, FASTING 92 MG/DL (74-106); SALICYLATE LEVEL < 3.0 MG/DL (<30); SODIUM LEVEL 135 MMOL/L (136-145); TOTAL PROTEIN 6.1 G/DL (5.7-8.2)
[2024-03-28 17:42] LABS: THYROID STIMULATING HORMONE 5.925 uIU/ML (0.55-4.78)
[2024-03-28] MEDS ORDERED: HYDR-3490 PO (19:14)
[2024-03-28] MEDS ORDERED: HOME MED LIST COMPLETE! XX SCH (19:20)
[2024-03-29 21:07] LABS: FREE T4 1.19 NG/DL (0.89-1.76)
[2024-03-30] MEDS: SPIRONOLACTONE 25 MG TAB PO SCH (09:00)
[2024-03-30] MEDS: LOSARTAN 25 MG TAB PO SCH (09:00)
[2024-03-30] MEDS: ENOXAPARIN 40MG/0.4ML SYRINGE (J1650 PER 10MG) SC SCH (09:00)
[2024-03-30] MEDS: ACETAMINOPHEN TAB 650MG DOSE (2X325MG) PO PRN (09:41)
[2024-03-30 17:06] VITALS: BP 144/96; TEMP 98.2; O2SAT 96
[2024-03-31] MEDS ORDERED: OLANZapine INTRAMUSCULAR 10MG VIAL IM PRN (14:00)
[2024-03-31 17:00] VITALS: O2SAT 95
[2024-03-31] MEDS: OLANZapine INTRAMUSCULAR 10MG VIAL IM SCH (18:24)
[2024-03-31] MEDS: NYSTATIN 100,000 UNITS/GM TOPICAL PWD 15GM TOP SCH (21:00)
[2024-04-01 06:00] VITALS: TEMP 98.1; O2SAT 95
[2024-04-01] MEDS: HALOPERIDOL LACTATE 5MG/ML VIAL IM PRN (08:10)
[2024-04-01] MEDS: OLANZapine INTRAMUSCULAR 10MG VIAL IM SCH (12:09)
[2024-04-01 21:35] VITALS: TEMP 98.1; O2SAT 97
[2024-04-02 05:00] VITALS: TEMP 98.1; O2SAT 98
[2024-04-02 15:17] VITALS: BP 185/115; TEMP 98.1; O2SAT 96
[2024-04-02 19:40] VITALS: BP 130/90; TEMP 98.1; O2SAT 97
[2024-04-03] MEDS ORDERED: LORazepam 2 MG/ML 1ML VIAL IV PRN ×2 (07:40→07:50)
[2024-04-03 08:04] LABS: HEMATOCRIT 35.6 % (36.0-47.0); HEMOGLOBIN 11.9 g/dl (12.0-15.5); MEAN CORPUSCULAR HEMOGLOBIN 29.8 pg (27.0-33.0); MEAN CORPUSCULAR HGB CONC 33.4 g/dl (32.0-36.5); PLATELET COUNT, AUTOMATED 239 10^3/uL (150-450)
[2024-04-03 08:33] LABS: ALBUMIN 2.5 G/DL (3.2-5.2); ALKALINE PHOSPHATASE 70 U/L (46-116); ALT/SGPT 11 U/L (7.0-40); AST/SGOT 9 U/L (<34); BILIRUBIN,TOTAL 1.8 MG/DL (0.3-1.2); BLOOD UREA NITROGEN 13 MG/DL (9-23); CALCIUM LEVEL 8.3 MG/DL (8.3-10.6); CARBON DIOXIDE LEVEL 31 MMOL/L (20-31); CHLORIDE LEVEL 99 MMOL/L (98-107); CREATININE FOR GFR 0.34 MG/DL (0.55-1.30); GLOMERULAR FILTRATION RATE > 60.0 (>39); GLUCOSE, FASTING 132 MG/DL (74-106); POTASSIUM SERUM 3.8 MMOL/L (3.5-5.1); SODIUM LEVEL 134 MMOL/L (136-145); TOTAL PROTEIN 5.4 G/DL (5.7-8.2)
[2024-04-03 12:00] VITALS: BP 128/94; TEMP 98.6; O2SAT 90
[2024-04-03 14:40] VITALS: BP 130/94; TEMP 98.8; O2SAT 93
[2024-04-03] MEDS: DOCUSATE SODIUM 100MG CAPSULE PO ONE (16:07)
[2024-04-03] MEDS: BREXPIPRAZOLE 0.5MG TABLET (REXULTI) PO SCH (17:30)
[2024-04-03 20:00] VITALS: BP 150/90; TEMP 97; O2SAT 95
[2024-04-03] MEDS: SENNA 8.6 MG TAB (SENOKOT) PO SCH (20:40)
[2024-04-03] MEDS: DOCUSATE SODIUM 100MG CAPSULE PO SCH (20:40)
[2024-04-03] MEDS: OLANZapine INTRAMUSCULAR 10MG VIAL IM SCH (20:41)
[2024-04-04 04:00] VITALS: BP 139/98; TEMP 97.7; O2SAT 95
[2024-04-04] MEDS ORDERED: BREXPIPRAZOLE 0.5MG TABLET (REXULTI) PO SCH (09:00)
[2024-04-04] MEDS: OLANZapine 5 MG TAB PO SCH (09:57)
[2024-04-04 12:00] VITALS: BP 134/95; TEMP 98.8; O2SAT 95
[2024-04-04] MEDS: METOPROLOL TART 12.5 MG PER 1/2 TAB PO SCH (15:28)
[2024-04-04 20:39] VITALS: BP 130/94; TEMP 98.6; O2SAT 95
[2024-04-05 04:00] VITALS: BP 150/98; TEMP 98.1; O2SAT 96
[2024-04-05 19:40] VITALS: TEMP 98.6; O2SAT 95
[2024-04-05] MEDS: METOPROLOL TART 25 MG TABLET PO SCH (21:08)
[2024-04-05] MEDS: MOM 30ML SUSPENSION UDC PO PRN (21:24)
[2024-04-06 05:53] VITALS: BP 119/90; TEMP 98.1; O2SAT 95
[2024-04-06] MEDS ORDERED: REXU1TAB2 PO (08:29)
[2024-04-06] MEDS: RIVAROXABAN 10MG TAB (XARELTO) PO SCH (18:00)
[2024-04-07] MEDS ORDERED: PILL CUTTER 1 EACH XX PRN (00:15)
[2024-04-07] MEDS: LORazepam 2 MG/ML 1ML VIAL IM PRN (03:27)
[2024-04-07] MEDS: LOSARTAN 25 MG TAB PO SCH (09:00)
[2024-04-07] MEDS: BREXPIPRAZOLE 0.5MG TABLET (REXULTI) PO SCH (09:00)
[2024-04-07 12:00] VITALS: BP 130/82; TEMP 97.5; O2SAT 96
[2024-04-08 20:05] VITALS: BP 139/92; TEMP 98.6; O2SAT 94
[2024-04-09 06:15] VITALS: BP 161/118; TEMP 97.7; O2SAT 94
[2024-04-09 12:00] VITALS: BP 108/89; TEMP 97.3
[2024-04-09] MEDS: risperiDONE 3 MG TAB PO SCH (13:18)
[2024-04-09 19:40] VITALS: BP 134/82; TEMP 97.7; O2SAT 95
[2024-04-10 12:00] VITALS: BP 137/99; TEMP 98.1; O2SAT 97
[2024-04-11 04:17] VITALS: BP 132/91; TEMP 97.9; O2SAT 98
[2024-04-11 19:37] VITALS: BP 106/66; TEMP 98.1; O2SAT 96
[2024-04-12] MEDS: VITAMIN E 400 INTERNATIONAL UNITS CAP PO SCH (10:06)
[2024-04-12] MEDS: CALCIUM/VITAMIN D 500 MG TAB PO SCH (10:08)
[2024-04-12] MEDS: MULTIVITAMINS/MINERALS THERAP 1 TAB PO SCH (10:08)
[2024-04-12] MEDS: OMEGA-3 1000MG CAPSULE PO SCH (10:08)
[2024-04-12 12:00] VITALS: BP 141/87; TEMP 98.1; O2SAT 95
[2024-04-12 21:15] VITALS: BP 138/98; TEMP 98.2; O2SAT 96
[2024-04-13 03:00] VITALS: BP 134/86; TEMP 98.6; O2SAT 91
[2024-04-13 12:00] VITALS: BP 134/89; TEMP 98.2; O2SAT 95
[2024-04-13] MEDS ORDERED: COLA100C5 PO (18:58)
[2024-04-13] MEDS ORDERED: OLAN1TAB16 PO (18:58)
[2024-04-13] MEDS ORDERED: METO1TAB87 PO (18:58)
[2024-04-13] MEDS ORDERED: XARE10TA PO (18:58)
[2024-04-13] MEDS ORDERED: LOSA-527 PO (18:58)
[2024-04-13] MEDS ORDERED: RISP3TAB20 PO (18:58)
[2024-04-13] MEDS ORDERED: SENO8.6T5 PO (18:58)
[2024-04-13 20:00] VITALS: BP 150/98; TEMP 97.9; O2SAT 97
[2024-04-14 04:00] VITALS: BP 140/86; TEMP 97.8; O2SAT 98
[2024-04-14 12:00] VITALS: BP 122/78; TEMP 97.7; O2SAT 96
[2024-04-14 20:00] VITALS: TEMP 97.2; O2SAT 93
[2024-04-15 03:44] VITALS: BP 128/94; TEMP 97.2; O2SAT 94
[2024-04-15] MEDS: OLANZapine INTRAMUSCULAR 10MG VIAL IM PRN (12:38)
[2024-04-15 19:55] VITALS: BP 132/98; TEMP 97.7; O2SAT 93
[2024-04-16] MEDS: NAPROXEN 250 MG TAB PO PRN (09:56)
[2024-04-16 12:00] VITALS: BP 107/83; TEMP 97.5; O2SAT 95
[2024-04-16 20:00] VITALS: BP 126/85; TEMP 98.1; O2SAT 94
[2024-04-17 04:00] VITALS: BP 118/76; TEMP 97.8; O2SAT 94
[2024-04-17] MEDS: RIVAROXABAN 10MG TAB (XARELTO) PO SCH (16:22)
[2024-04-17 20:00] VITALS: BP 131/87; TEMP 97.7; O2SAT 93
[2024-04-18 04:00] VITALS: BP 144/90; TEMP 97; O2SAT 96
[2024-04-19 03:00] VITALS: BP 122/91; TEMP 98.4; O2SAT 94
[2024-04-19] MEDS: RIVAROXABAN 10MG TAB (XARELTO) PO SCH (18:00)
[2024-04-19 19:39] VITALS: BP 125/84; TEMP 97.9; O2SAT 100
[2024-04-20 05:45] VITALS: BP 134/90; TEMP 98.1; O2SAT 93
[2024-04-20 12:00] VITALS: BP 129/81; TEMP 98; O2SAT 96
[2024-04-20 19:39] VITALS: BP 116/86; TEMP 98.2; O2SAT 94
[2024-04-21 03:54] VITALS: BP 140/76; TEMP 98; O2SAT 95
[2024-04-21] MEDS: METOPROLOL SUCC *XL* 25MG TAB (TopROL *XL*) PO SCH (09:34)
[2024-04-21] MEDS ORDERED: METO1TAB32 PO (13:28)
[2024-04-22 05:00] VITALS: BP 135/90; TEMP 98.2; O2SAT 93
[2024-04-22 12:00] VITALS: BP 124/83; TEMP 98.1; O2SAT 95
[2024-04-22 20:00] VITALS: BP 136/88; TEMP 98; O2SAT 96
[2024-04-23] MEDS ORDERED: propofoL 200 MG/20 ML VIAL As Ordered ONE (09:04)
[2024-04-23] MEDS ORDERED: LIDOCAINE 2% 100MG/5ML SDV (FOR ANES.) As Ordered ONE (09:04)
[2024-04-23 12:00] VITALS: BP 123/80; TEMP 98.1; O2SAT 96
[2024-04-23 19:43] VITALS: BP 154/97; TEMP 97.9; O2SAT 94
[2024-04-24 04:44] VITALS: BP 148/84; TEMP 97.9; O2SAT 98
[2024-04-24 12:00] VITALS: BP 129/76; TEMP 97.4; O2SAT 94
[2024-04-24 19:38] VITALS: BP 129/92; TEMP 98.6; O2SAT 97
[2024-04-25 12:00] VITALS: BP 135/87; TEMP 98.1; O2SAT 94
[2024-04-25 20:20] VITALS: BP_SYST 149; BP_SYST 165; BP_DIAS 88; BP_DIAS 94
[2024-04-26 04:00] VITALS: BP 147/95; TEMP 97.7; O2SAT 96
[2024-04-26 12:00] VITALS: BP 147/86; TEMP 98.2; O2SAT 94
[2024-04-26 20:50] VITALS: BP 117/75; TEMP 97.9; O2SAT 95
[2024-04-27 04:15] VITALS: BP 134/72; TEMP 97.7; O2SAT 94
[2024-04-27 12:00] VITALS: BP 127/81; TEMP 98.2; O2SAT 95
[2024-04-27 20:00] VITALS: BP 130/66; TEMP 98.2; O2SAT 95
[2024-04-28 12:00] VITALS: BP 135/88; TEMP 98.2; O2SAT 95
[2024-04-28 20:00] VITALS: BP 138/80; TEMP 98.1; O2SAT 99
[2024-04-29 04:00] VITALS: BP 140/84; TEMP 97.9; O2SAT 96
[2024-04-29 12:00] VITALS: BP 148/107; TEMP 97.2; O2SAT 94
[2024-04-29 20:00] VITALS: BP 130/78; TEMP 98.1; O2SAT 97
[2024-04-30 20:23] VITALS: BP 136/78; TEMP 97.5; O2SAT 96
[2024-05-01 20:18] VITALS: BP 134/82; TEMP 98.1; O2SAT 96
[2024-05-02 04:00] VITALS: BP 138/80; TEMP 97.7; O2SAT 95
[2024-05-02 12:16] VITALS: TEMP 97.2; O2SAT 94
[2024-05-02 20:00] VITALS: BP 134/89; TEMP 97.6; O2SAT 97
[2024-05-03 12:00] VITALS: BP 123/74; TEMP 98.4; O2SAT 97
[2024-05-03 20:00] VITALS: BP 152/93; TEMP 97.9; O2SAT 96
[2024-05-04 20:03] VITALS: BP 150/80; TEMP 98; O2SAT 98
[2024-05-05 23:00] VITALS: BP 127/83; TEMP 98.2; O2SAT 92
[2024-05-07 09:00] VITALS: BP 127/83; TEMP 98.1; O2SAT 94
[2024-05-08 20:00] VITALS: BP 159/94; TEMP 97.8; O2SAT 97
[2024-05-09 12:00] VITALS: TEMP 98.4; O2SAT 97
[2024-05-09 19:22] VITALS: BP 108/77; TEMP 97.9; O2SAT 97
[2024-05-10 20:00] VITALS: BP 108/73; TEMP 97.3; O2SAT 96
[2024-05-13 03:55] VITALS: BP 114/74; TEMP 97.7; O2SAT 95
[2024-05-14 04:00] VITALS: BP 106/68; TEMP 97.7; O2SAT 97
[2024-05-14] MEDS ORDERED: ACETAMINOPHEN 500 MG TAB PO PRN (12:20)
[2024-05-14] MEDS: NAPROXEN 250 MG TAB PO PRN (16:50)
[2024-05-14 20:40] VITALS: BP 123/81; TEMP 98.6; O2SAT 99
[2024-05-15 20:00] VITALS: BP 147/94; TEMP 98.4; O2SAT 95
[2024-05-15] MEDS: METOPROLOL SUCC *XL* 25MG TAB (TopROL *XL*) PO SCH (20:40)
[2024-05-17] MEDS: CARBAMIDE PEROXIDE 6.5% OTIC SOLN 15ML AS SCH (21:00)
[2024-05-18 20:28] VITALS: BP 140/90; TEMP 98.6; O2SAT 96
[2024-05-19 20:00] VITALS: BP 156/99; TEMP 98; O2SAT 98
[2024-05-20] MEDS ORDERED: PERMETHRIN 5% CREAM 60 GM TOP SCH
[2024-05-20] MEDS: PERMETHRIN 5% CREAM 60 GM TOP ONE (17:12)
[2024-05-20 20:00] VITALS: BP 129/99; TEMP 98.1; O2SAT 98
[2024-05-22 04:00] VITALS: BP 144/87; TEMP 98.6; O2SAT 97
[2024-05-22 21:00] VITALS: BP 138/85; TEMP 98.2; O2SAT 99
[2024-05-23 20:00] VITALS: BP 134/80; TEMP 98; O2SAT 97
[2024-05-24 20:00] VITALS: BP 114/68; TEMP 97.6; O2SAT 96
[2024-05-26] VITALS: BP 157/88; TEMP 98; O2SAT 99
[2024-05-26 04:00] VITALS: BP 135/81; TEMP 98.6; O2SAT 96
[2024-05-26 08:00] VITALS: BP 137/86; TEMP 97.7; O2SAT 96
[2024-05-26] MEDS: ARTIFICIAL TEARS DROPS 15ML BTL (VISINE DRY RELIEF) OU SCH (13:40)
[2024-05-27 04:00] VITALS: BP 129/77; TEMP 98.2; O2SAT 93
[2024-05-27] MEDS: PERMETHRIN 5% CREAM 60 GM TOP ONE (09:00)
[2024-05-27 20:38] VITALS: BP 111/78; TEMP 98.4; O2SAT 95
[2024-05-28] MEDS: PERMETHRIN 5% CREAM 60 GM TOP ONE (08:55)
[2024-05-29 05:29] VITALS: BP 115/79; TEMP 98.1; O2SAT 97
[2024-05-30 07:26] VITALS: BP 154/98; TEMP 98.1; O2SAT 93
[2024-05-31 04:35] VITALS: BP 119/81; TEMP 98.2; O2SAT 96
[2024-05-31 21:01] VITALS: BP 112/81
[2024-06-01 06:00] VITALS: BP 116/79; TEMP 97.9; O2SAT 98
[2024-06-01 08:15] VITALS: BP 141/97
[2024-06-01 21:37] VITALS: BP 120/85; TEMP 97.9; O2SAT 96
[2024-06-02 21:18] VITALS: BP 120/79; TEMP 98.1; O2SAT 96
[2024-06-03 05:31] VITALS: BP 147/83; TEMP 98.1; O2SAT 96
[2024-06-03] MEDS: CALCIUM CARBONATE 500 MG CHEW U/D PO PRN (09:56)
[2024-06-04 03:56] VITALS: BP 141/78; TEMP 97.9; O2SAT 98
[2024-06-04 21:20] VITALS: BP 125/78; TEMP 98.4; O2SAT 96
[2024-06-05 05:19] VITALS: BP 133/79; TEMP 97.7; O2SAT 96
[2024-06-05 20:58] VITALS: BP 137/95; TEMP 98.4; O2SAT 97
[2024-06-06 04:36] VITALS: BP 135/86; TEMP 98.4; O2SAT 94
[2024-06-06 19:39] VITALS: BP 82/54; TEMP 97.7; O2SAT 96
[2024-06-07 00:35] VITALS: BP 131/73; TEMP 97.1; O2SAT 92
[2024-06-07 11:25] VITALS: BP 141/91; TEMP 98.2; O2SAT 97
[2024-06-07 20:00] VITALS: BP 114/72; TEMP 97.9; O2SAT 97
[2024-06-08 20:00] VITALS: BP 126/79; TEMP 97.9; O2SAT 96
[2024-06-10 05:36] VITALS: BP 136/79; TEMP 97.9; O2SAT 96
[2024-06-11 04:13] VITALS: BP 139/74; TEMP 97; O2SAT 95
[2024-06-11 08:24] VITALS: BP 122/68
[2024-06-11] MEDS: LORazepam 1 MG TAB PO PRN (08:50)
[2024-06-11] MEDS ORDERED: FISH1CAP26 PO (10:37)
[2024-06-11] MEDS ORDERED: CALCD50TA PO (10:37)
[2024-06-11] MEDS ORDERED: METO1TAB32 PO (10:37)
[2024-06-11] MEDS ORDERED: Multivitamins PO (10:37)
[2024-06-11] MEDS: LORazepam 2 MG/ML 1ML VIAL IM PRN (11:11)
== END 2024-06-11 14:49 ==
LOC: M ED 16:18 → INTOOBSV 03-30 12:44 → M ED INP 03-30 12:44 → M MSPAV 03-30 16:59
PROVIDERS: ADMIT Internal Medicine; ATTEND Internal Medicine
DX: R41.9 Unspecified symptoms and signs involving cognitive functions and awareness (principal); F31.9 Bipolar disorder, unspecified; R45.1 Restlessness and agitation; I10 Essential (primary) hypertension; E78.5 Hyperlipidemia, unspecified; E87.1 Hypo-osmolality and hyponatremia; E02 Subclinical iodine-deficiency hypothyroidism; D50.9 Iron deficiency anemia, unspecified; S72.011S Unspecified intracapsular fracture of right femur, sequela; M48.50XS Collapsed vertebra, not elsewhere classified, site unspecified, sequela of fracture; R00.0 Tachycardia, unspecified; F29 Unspecified psychosis not due to a substance or known physiological condition; R45.4 Irritability and anger; Z91.148 Patient's other noncompliance with medication regimen for other reason; H92.02 Otalgia, left ear; R54 Age-related physical debility; K59.00 Constipation, unspecified; Z90.89 Acquired absence of other organs; Z98.49 Cataract extraction status, unspecified eye; Z98.890 Other specified postprocedural states; Z79.899 Other long term (current) drug therapy; Z88.0 Allergy status to penicillin; Z88.8 Allergy status to other drugs, medicaments and biological substances; Z91.018 Allergy to other foods
CPT/HCPCS: 36415; 80048; 80053; 80076; 80143; 81001; 82077; 82140; 83605; 84439; 84443; 85025; 85027; 87635; 93005; 93041; 94760; 96372; 97161; 97530; 99285; G0378; J1630; J1650; J2060; J2359

== ENCOUNTER 2024-11-16 17:15 | Emergency (ER) | payer MEDICAID, MEDICARE, OTHER, SELFPAY ==
[~2024-11-16] VITALS: Ht 167.6 cm; Wt 52.5 kg
[~2024-11-16 17:15] MED LIST changes: +CALCD50TA PO; -CYCL5TAB PO; +CYCL5TAB4 PO; +FISH1CAP26 PO; +HYDR-3490 PO; +LEVA15HF2 INH; -LEVAINH INH; +LOSA-527 PO; +METO1TAB32 PO; +METO1TAB87 PO; +Multivitamins PO; +OLAN1TAB16 PO; +REXU1TAB2 PO; +RISP3TAB20 PO; +SENO8.6T5 PO; +XARE10TA PO
[2024-11-16 17:28] VITALS: TEMP 97.1
[2024-11-16 18:32] LABS: BASO # 0.1 10^3/uL (0.0-0.2); BASO % 0.8 % (0.0-1.0); EOS # 0.1 10^3/uL (0.0-0.5); EOS % 1.8 % (0.0-3.0); HEMATOCRIT 25.3 % (36.0-47.0); HEMOGLOBIN 7.7 g/dl (12.0-15.5); LYMPH # 1.7 10^3/uL (1.5-5.0); MEAN CORPUSCULAR HEMOGLOBIN 24.4 pg (27.0-33.0); MEAN CORPUSCULAR HGB CONC 30.4 g/dl (32.0-36.5); MEAN CORPUSCULAR VOLUME 80.3 fl (80.0-96.0); MONO # 0.7 10^3/uL (0.0-0.8); MONO % 11.1 % (2.0-8.0); NEUTROPHILS # 3.5 10^3/uL (1.5-8.5); NEUTROPHILS % 57.8 % (36.0-66.0); PLATELET COUNT, AUTOMATED 249 10^3/uL (150-450); RED BLOOD COUNT 3.15 10^6/uL (4.00-5.40); WHITE BLOOD COUNT 6.1 10^3/uL (4.0-10.0)
[2024-11-16 18:57] LABS: BLOOD UREA NITROGEN 25 MG/DL (9-23); CALCIUM LEVEL 8.8 MG/DL (8.3-10.6); CARBON DIOXIDE LEVEL 35 MMOL/L (20-31); CHLORIDE LEVEL 92 MMOL/L (98-107); CREATININE FOR GFR 0.53 MG/DL (0.55-1.30); GLOMERULAR FILTRATION RATE > 60.0 (>39); GLUCOSE, FASTING 112 MG/DL (74-106); POTASSIUM SERUM 5.3 MMOL/L (3.5-5.1); SODIUM LEVEL 130 MMOL/L (136-145)
[2024-11-16 21:52] VITALS: O2SAT 97
[2024-11-16 22:08] LABS: MAGNESIUM LEVEL 1.6 MG/DL (1.8-2.4)
[2024-11-16] MEDS ORDERED: ISOVUE-370 76% 100ML VIAL As Ordered ONE (22:10)
[2024-11-16 22:13] LABS: THYROID STIMULATING HORMONE 4.456 uIU/ML (0.55-4.78)
[2024-11-16 22:32] VITALS: BP 192/96
== END 2024-11-17 00:18 | disposition left against medical advice (07) ==
LOC: M ED 17:15 → EDBD 17:15 → M ED 11-17 00:18
DX: K64.8 Other hemorrhoids (principal); E87.1 Hypo-osmolality and hyponatremia; E83.42 Hypomagnesemia; D64.9 Anemia, unspecified; J44.9 Chronic obstructive pulmonary disease, unspecified; E78.5 Hyperlipidemia, unspecified; F32.A Depression, unspecified; Z88.0 Allergy status to penicillin; Z88.8 Allergy status to other drugs, medicaments and biological substances; Z91.018 Allergy to other foods; Z79.899 Other long term (current) drug therapy; Z79.810 Long term (current) use of selective estrogen receptor modulators (SERMs); Z53.9 Procedure and treatment not carried out, unspecified reason

== ENCOUNTER 2025-01-19 15:45 | Emergency (ER) | payer MEDICARE ==
[~2025-01-19] VITALS: Ht 167.6 cm; Wt 71.7 kg
[2025-01-19 15:59] VITALS: BP 111/68; TEMP 96.5; O2SAT 100
[2025-01-21] MEDS ORDERED: METO1TAB7 PO (14:48)
[2025-01-21] MEDS ORDERED: DICL100G10 TOP (14:48)
[2025-01-21] MEDS ORDERED: IPRA0.00 INH (14:48)
[2025-01-21] MEDS ORDERED: CITA10TA6 PO (14:48)
[2025-01-21] MEDS ORDERED: RISP-106 PO (14:48)
== END 2025-01-19 16:51 | disposition left against medical advice (07) ==
LOC: EDBD 15:45 → M ED 15:45
DX: K62.5 Hemorrhage of anus and rectum (principal); I10 Essential (primary) hypertension; E78.5 Hyperlipidemia, unspecified; D50.9 Iron deficiency anemia, unspecified; E03.9 Hypothyroidism, unspecified; Z88.0 Allergy status to penicillin; Z88.8 Allergy status to other drugs, medicaments and biological substances; Z91.018 Allergy to other foods; Z79.899 Other long term (current) drug therapy; Z53.9 Procedure and treatment not carried out, unspecified reason

== ENCOUNTER 2025-03-08 22:23 | Emergency (ER) | payer MEDICAID, MEDICARE ==
[~2025-03-08] VITALS: Ht 167.6 cm; Wt 72.0 kg
[~2025-03-08 22:23] MED LIST changes: +CITA10TA6 PO; -DEPA250T32 PO; +DICL100G10 TOP; +DIVA-65 PO; +IPRA0.00 INH; +METO1TAB7 PO; -PRAV20TA2; +PRAV20TA78
[2025-03-08] MEDS: MIDAZOLAM INJ 2 MG/2 ML VIAL IV STA (22:53)
[2025-03-08] MEDS: MIDAZOLAM 5 MG/ML 1 ML VIAL IM ONE (23:29)
[2025-03-08] MEDS ORDERED: ISOVUE-370 76% 100 ML VIAL As Ordered ONE (23:50)
[2025-03-09 00:29] LABS: INR 0.95
[2025-03-09 00:30] LABS: CALCIUM LEVEL 9.2 MG/DL (8.3-10.6); CARBON DIOXIDE LEVEL 27 MMOL/L (20-31); CHLORIDE LEVEL 96 MMOL/L (98-107); CK-MB VALUE MASS 1.9 NG/ML (<3.6); CPK CREATINE PHOSPHOKINASE 43 U/L (34-145); CREATININE FOR GFR 0.46 MG/DL (0.55-1.30); GLOMERULAR FILTRATION RATE > 90.0 (>39); LITHIUM LEVEL 0.47 MMOL/L (1.0-1.20); MB/CK RELATIVE INDEX 4.41 (< OR =4); POTASSIUM SERUM 4.1 MMOL/L (3.5-5.1); SODIUM LEVEL 134 MMOL/L (136-145)
[2025-03-09 00:35] LABS: BASO # 0.1 10^3/uL (0.0-0.2); BASO % 1.0 % (0.0-1.0); EOS # 0.2 10^3/uL (0.0-0.5); EOS % 1.9 % (0.0-3.0); LYMPH # 2.0 10^3/uL (1.5-5.0); LYMPH % 24.2 % (24.0-44.0); MONO # 0.8 10^3/uL (0.0-0.8); MONO % 10.0 % (2.0-8.0); NEUTROPHILS # 5.0 10^3/uL (1.5-8.5); NEUTROPHILS % 62.2 % (36.0-66.0); PLATELET COUNT, AUTOMATED 326 10^3/uL (150-450)
[2025-03-09] MEDS: ENOXAPARIN 80 MG/0.8 ML SYRINGE (J1650 PER 10MG) SC ONE (01:30)
[2025-03-09] MEDS: hydrALAZINE 20 MG/ML 1 ML VIAL IV STA (01:50)
[2025-03-09] MEDS: APIXABAN 5 MG TAB PO ONE (08:32)
[2025-03-09 10:21] VITALS: BP 97/54; TEMP 97.7; O2SAT 95
[2025-03-12] MEDS ORDERED: CEFD1CAP9 PO (23:54)
[2025-03-15] MEDS ORDERED: NITR100C3 PO (10:18)
== END 2025-03-09 11:09 | disposition home or self-care (01) ==
LOC: EDBD 22:23 → M ED 22:23
DX: J96.00 Acute respiratory failure, unspecified whether with hypoxia or hypercapnia (principal); I26.09 Other pulmonary embolism with acute cor pulmonale; I25.119 Atherosclerotic heart disease of native coronary artery with unspecified angina pectoris; I10 Essential (primary) hypertension; K21.9 Gastro-esophageal reflux disease without esophagitis; J44.9 Chronic obstructive pulmonary disease, unspecified; F32.A Depression, unspecified; Z88.0 Allergy status to penicillin; Z88.8 Allergy status to other drugs, medicaments and biological substances; Z91.018 Allergy to other foods; Z79.51 Long term (current) use of inhaled steroids; Z79.899 Other long term (current) drug therapy
CPT/HCPCS: 70450; 70496; 70498; 71045; 80047; 80048; 80178; 82550; 82553; 84484; 85025; 85610; 85730; 93041; 94760; 96372; 96374; 96375; 99285; J0360; J2250; Q9967

== ENCOUNTER 2025-07-04 15:43 | Inpatient (IN) | payer MEDICAID, MEDICARE ==
[~2025-07-04] VITALS: TEMP 97.3
[~2025-07-04 15:43] MED LIST changes: +CEFD1CAP9 PO; -IBUP-1022 PO; +IBUP600T42 PO; +NITR100C3 PO; +SENN-225 PO; -SENO8.6T5 PO
[2025-07-04] MEDS ORDERED: ELIQ5TAB PO (16:32)
[2025-07-04] MEDS ORDERED: DEPA500T2 PO (16:32)
[2025-07-04] MEDS ORDERED: LEVO25TA5 PO (16:32)
[2025-07-04] MEDS ORDERED: [UNRECOGNIZED DRUG - CODE] PO (16:32)
[2025-07-04 18:41] LABS: PLATELET COUNT, AUTOMATED 379 10^3/uL (150-450)
[2025-07-04 19:05] LABS: VALPROIC ACID (DEPAKOTE) 30.7 UG/ML (50.0-100.0)
[2025-07-04 19:06] LABS: ETHYL ALCOHOL (ETHANOL) 0.005 % (0.000-0.010)
[2025-07-04 19:07] LABS: SALICYLATE LEVEL < 3.0 MG/DL (<30)
[2025-07-04 19:08] LABS: ALT/SGPT 10 U/L (7.0-40); AST/SGOT 14 U/L (<34); CALCIUM LEVEL 9.4 MG/DL (8.3-10.6); CARBON DIOXIDE LEVEL 27 MMOL/L (20-31); CHLORIDE LEVEL 100 MMOL/L (98-107); CREATININE FOR GFR 0.45 MG/DL (0.55-1.30); GLOMERULAR FILTRATION RATE > 90.0 (>39); POTASSIUM SERUM 4.5 MMOL/L (3.5-5.1); SODIUM LEVEL 139 MMOL/L (136-145)
[2025-07-04] MEDS ORDERED: ACET-683 PO (20:51)
[2025-07-04] MEDS ORDERED: HOME MED LIST COMPLETE! XX SCH (20:55)
[2025-07-04 21:14] LABS: KETONE, URINE AUTO RFX 1+ mg/dL (NEGATIVE); LEUKOCYTE ESTERASE UR AUTO RFX NEGATIVE (NEGATIVE); MUCUS, URINE RFX SMALL (NEGATIVE); NITRITE, URINE AUTO RFX NEGATIVE (NEGATIVE); RBC, URINE AUTO RFX 1 /HPF (0-3); SQUAM EPITHELIAL CELL UR AURFX 0 /HPF (0-6); TRANSITIONAL EPITHELIAL AU RFX <1 /HPF; WBC, URINE AUTO RFX 1 /HPF (0-3)
[2025-07-04 21:29] LABS: AMPHETAMINES LEVEL URINE NEGATIVE (NEGATIVE); BARBITURATES URINE NEGATIVE (NEGATIVE); BENZODIAZEPINES URINE NEGATIVE (NEGATIVE); CANNABINOIDS URINE NEGATIVE (NEGATIVE); COCAINE METABOLITE URINE NEGATIVE (NEGATIVE); METHADONE URINE NEGATIVE (NEGATIVE); OPIATES URINE NEGATIVE (NEGATIVE); PHENCYCLIDINE URINE NEGATIVE (NEGATIVE)
[2025-07-04] MEDS: MIDAZOLAM 5 MG/ML 1 ML VIAL IM ONE (23:18)
[2025-07-05] MEDS: OLANZapine INTRAMUSCULAR 10MG VIAL IM ONE ×2 (01:09→07:40)
[2025-07-05] MEDS ORDERED: OLANZapine ORAL DISINTEGRATING TAB 5MG PO ONE (07:20)
[2025-07-05] MEDS ORDERED: IBUPROFEN 400 MG TAB PO PRN (13:10)
[2025-07-05] MEDS ORDERED: traZODone 50 MG TAB PO PRN (13:10)
[2025-07-05] MEDS ORDERED: HALOPERIDOL 5 MG TAB PO PRN (13:10)
[2025-07-05] MEDS ORDERED: OLANZapine 5 MG TAB PO PRN (13:10)
[2025-07-05] MEDS ORDERED: MOM 30 ML SUSPENSION UDC PO PRN ×2 (13:10→21:05)
[2025-07-05] MEDS ORDERED: MAALOX 30 ML SUSP *UDC PO PRN ×2 (13:10→21:05)
[2025-07-05] MEDS ORDERED: ACETAMINOPHEN 325 MG TAB PO PRN (13:10)
[2025-07-05] MEDS ORDERED: LORazepam 1 MG TAB PO PRN (13:10)
[2025-07-05] MEDS: LEVOTHYROXINE 25 MCG TABLET (0.025MG) PO SCH (15:32)
[2025-07-05] MEDS: DIVALPROEX 500 MG *ER* TAB PO SCH (15:32)
[2025-07-05] MEDS: PANTOPRAZOLE 40MG TAB PO SCH (15:33)
[2025-07-05] MEDS: METOPROLOL SUCC. 50 MG *XL* TAB PO SCH (15:33)
[2025-07-05] MEDS: APIXABAN 5 MG TAB PO SCH (20:10)
[2025-07-05] MEDS ORDERED: SENNA 8.6 MG TAB PO SCH (21:00)
[2025-07-05] MEDS ORDERED: ACETAMINOPHEN 500 MG TAB PO PRN (21:05)
[2025-07-05] MEDS: SENNA 8.6 MG TAB PO SCH (21:17)
[2025-07-06] MEDS: HALOPERIDOL LACTATE 5 MG/ML VIAL IM ONE (00:28)
[2025-07-06] MEDS: diphenhydrAMINE 50 MG/ML VIAL IM ONE (00:28)
[2025-07-06 04:55] VITALS: BP 161/84; TEMP 97.7; O2SAT 96
[2025-07-06] MEDS: RISPERIDONE 1 MG TAB PO SCH (16:33)
[2025-07-07 00:53] VITALS: BP 112/84; TEMP 97.9; O2SAT 97
[2025-07-07 04:45] VITALS: BP 112/80; TEMP 97.5; O2SAT 94
[2025-07-07 12:00] VITALS: BP 134/85; TEMP 97.9; O2SAT 93
[2025-07-07 23:45] VITALS: BP 140/85; TEMP 97.7; O2SAT 93
[2025-07-08 20:31] VITALS: BP 140/88; TEMP 97.7; O2SAT 95
[2025-07-09] MEDS: IRON POLYSAC 150 MG CAP PO SCH (09:00)
[2025-07-09 12:00] VITALS: BP 158/92; TEMP 97.9; O2SAT 96
[2025-07-09 20:00] VITALS: BP 157/109; TEMP 97.5; O2SAT 94
[2025-07-10] MEDS: OLANZapine INTRAMUSCULAR 10MG VIAL IM PRN (08:27)
[2025-07-10] MEDS: OLANZapine INTRAMUSCULAR 10MG VIAL IM STA (11:12)
[2025-07-11] MEDS: traZODone 50 MG TAB PO PRN (20:50)
[2025-07-13] MEDS ORDERED: risperiDONE 1MG/1ML SOLN ORAL SYRINGE PO PRN (16:20)
[2025-07-13] MEDS: risperiDONE 1MG/1ML SOLN ORAL SYRINGE PO SCH (17:29)
[2025-07-14] MEDS: DIVALPROEX SPRINKLE 125 MG CAP PO SCH (09:00)
[2025-07-14] MEDS ORDERED: [UNRECOGNIZED DRUG - CODE] SQ (11:52)
[2025-07-15 15:27] VITALS: BP 150/94; TEMP 97; O2SAT 92
[2025-07-16 12:00] VITALS: BP 135/82; TEMP 98.3; O2SAT 89
[2025-07-16 22:04] VITALS: BP 140/92; TEMP 98; O2SAT 94
[2025-07-17 12:00] VITALS: TEMP 97.3
[2025-07-17] MEDS: ACETAMINOPHEN 325 MG TAB PO PRN (23:24)
[2025-07-18] MEDS ORDERED: Patient Own Medication SQ (09:18)
[2025-07-18] MEDS ORDERED: [UNRECOGNIZED DRUG - CODE] IM (09:18)
[2025-07-18] MEDS ORDERED: DIVA500T9 PO (09:18)
[2025-07-18] MEDS ORDERED: TRAZ-252 PO (09:18)
== END 2025-07-18 14:09 | DRG 884 ==
LOC: M ED 15:43 → M ED INP 07-05 13:09 → M MSPAV 07-05 23:21
PROVIDERS: ADMIT Internal Medicine; ATTEND Psychiatry & Neurology Psychiatry
DX: F03.911 Unspecified dementia, unspecified severity, with agitation (principal); E22.2 Syndrome of inappropriate secretion of antidiuretic hormone; F31.64 Bipolar disorder, current episode mixed, severe, with psychotic features; I10 Essential (primary) hypertension; R73.03 Prediabetes; L30.9 Dermatitis, unspecified; E78.5 Hyperlipidemia, unspecified; F41.9 Anxiety disorder, unspecified; D50.9 Iron deficiency anemia, unspecified; E02 Subclinical iodine-deficiency hypothyroidism; Z86.711 Personal history of pulmonary embolism; Z79.01 Long term (current) use of anticoagulants; Z79.890 Hormone replacement therapy; Z79.899 Other long term (current) drug therapy; Z91.148 Patient's other noncompliance with medication regimen for other reason